=== PATIENT | male | born 1990 | race Caucasian/White ===

== ENCOUNTER 2019-02-09 16:17 | Emergency (ER) | payer MEDICARE, MEDICAID ==
[~2019-02-09] VITALS: Ht 188 cm; Wt 80.0 kg
[~2019-02-09 16:17] MED LIST: BENZ1TAB7 PO; BUSP30TA2 PO; ESCI10TA PO; LIT300C PO; RISP1TAB3 PO
[2019-02-09] MEDS ORDERED: TETanus/Pertussis (Acell)/Diphther VAC/PF (Tdap-Adult) 0.5ml syringe IM ONE (16:30)
[2019-02-09 16:36] VITALS: BP 125/73
[2019-02-09] MEDS ORDERED: IBUP-1985 PO (16:45)
[2019-02-09] MEDS ORDERED: AMOX-580 PO (16:45)
== END 2019-02-09 17:22 | disposition home or self-care (01) ==
LOC: ER 16:18
DX: S41.151A Open bite of right upper arm, initial encounter (principal); F31.9 Bipolar disorder, unspecified; F15.90 Other stimulant use, unspecified, uncomplicated; Z79.2 Long term (current) use of antibiotics; Z79.899 Other long term (current) drug therapy; W54.0XXA Bitten by dog, initial encounter; Y93.89 Activity, other specified; Y92.89 Other specified places as the place of occurrence of the external cause; Y99.8 Other external cause status
CPT/HCPCS: 90471; 99283

== ENCOUNTER 2020-01-18 22:27 | Inpatient (IN) | payer MEDICARE, MEDICAID ==
[~2020-01-18] VITALS: Ht 170.2 cm; Wt 76.7 kg
[~2020-01-18 22:27] MED LIST changes: +BUSP10TA10 PO; -BUSP30TA2 PO; +DIVA500T9 PO; -ESCI10TA PO; -LIT300C PO; +PALI234D IM; -RISP1TAB3 PO; +TRAZ-251 PO
[2020-01-19] MEDS ORDERED: acetaminophen 325mg tablet PO PRN (10:25)
[2020-01-19] MEDS ORDERED: loperamide 2mg capsule PO PRN (10:25)
[2020-01-19] MEDS ORDERED: magnesium hydroxide 30ml (MOM) UD suspension PO PRN (10:25)
[2020-01-19] MEDS ORDERED: mag hydrox/Alum hydrox/simeth 30ml oral suspension PO PRN (10:25)
[2020-01-19 10:27] VITALS: BP 134/76
[2020-01-19] MEDS ORDERED: OLAN5TAB3 PO (11:40)
[2020-01-19] MEDS ORDERED: OLAN10TA3 PO (11:40)
[2020-01-19] MEDS ORDERED: PROP10TA10 PO (11:40)
--- NOTE | 2020-01-19 14:18 | NUR ---
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 Patient was escorted by CAMILA Cherry and security. Patient is LPS conserved and was recently discharged to [facility] on 01/08/20. Patient AWOLD several times from this facility. Patient does not appear to be cognizant of the quarantine rules and insisted he comes back. Patient has been having behavioral issues, he was seen over the weekend destroying property while in the community and another incident pt. snuck out of his room and peers reported him drunk. While in ER pt. presented as disorganized, unable to form sentences, drooling and spitting on the floor. Patient appeared disheveled and in need of a shower. Patient showered and changed into green unit scrubs. Patient presents with a flat affect, guarded affect. Patient denies SI/HI/VH/AH, but then states regarding AH not right now. When asked why pt. is here he states I left, but I always go back. Patient kept asking Can I go back" meaning back to [facility]. Patient isolates to his room and naps in his bed. Patient was up for lunch. Patient denies any behavior issues while at [facility]. Addendum: 01/20/20 at 0859 by Moses Painting RN ADMISSION NOTE (not discharge note)
[2020-01-19 20:08] VITALS: BP 130/69
[2020-01-19] MEDS: benztropine 1mg tablet PO SCH (20:18)
[2020-01-19] MEDS: busPIRone 5mg tablet PO SCH (20:18)
[2020-01-19] MEDS: olanzapine 10mg tablet PO SCH (20:18)
[2020-01-19] MEDS: divalproex sod 250mg ER (24-hour) tablet PO SCH (20:18)
[2020-01-19] MEDS: propranolol 10mg tablet PO SCH (20:18)
--- NOTE | 2020-01-19 22:48 | NUR ---
Nursing Progress Note: Legal hold: LPS Client on involuntary status for GD Report received from Omar RN with use of SBAR. Why are they here: Patient is LPS conserved and was recently discharged to [facility] on 01/08/20. Patient AWOLD several times from this facility. Patient does not appear to be cognizant of the quarantine rules and insisted he comes back. Patient has been having behavioral issues, he was seen over the weekend destroying property while in the community and another incident pt. snuck out of his room and peers reported him drunk. While in ER pt. presented as disorganized, unable to form sentences, drooling and spitting on the floor. Assessment: What has happened this shift: Pt was lying in bed sleeping at shift change, but was easily to wake up for 1:1. Pt presented as tired, guarded and did not want to engage. Pt stated hes fine, just tired. Pt continued to isolate all evening and did not come out for snack. Pt accepted hs meds without issue. S/I, H/I: Denies. A/VH: Denies Sleep: Sleeping well, will tally in am. ADL's: independent, may require prompting. 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 Were med's taken: yes, without issue Any med S/E None. Mental Status Exam Appearance: lying in bed in scrubs Eye contact: fair Behavior: tired Speech: quiet, normal rate Mood: sleepy Affect: flat Thought process: unable to assess Thought Content: sleep Cognition: a/o x2 Insight: Poor. Judgment: poor Interventions PRN's used: None. Therapeutic interventions: 1:1 assessment, established rapport, active listening, reality orientation, boundary setting, medication administration/education and monitoring; Q15m safety checks. Restraints/seclusion/emergency medication: N/A Justification of Continued Inpatient Treatment: Requires interruption of current crisis, medication adjustments, and a safe and supportive environment to prevent readmission
[2020-01-20 07:13] LABS: HEMOGLOBIN A1C 5.3 % (4.5-6.2)
[2020-01-20 07:32] LABS: CHOL/HDL RATIO 2.9 (0.00-4.99); CHOLESTEROL 115 MG/DL (0-200); HDL CHOLESTEROL 39 MG/DL (35-60); LDL CHOLESTEROL 63 MG/DL (50-100); TRIGLYCERIDES 68 MG/DL (20-135)
[2020-01-20 07:42] VITALS: BP 117/72
[2020-01-20] MEDS: propranolol 10mg tablet PO SCH ×3 (08:26→20:06)
[2020-01-20] MEDS: busPIRone 5mg tablet PO SCH ×2 (08:26→20:05)
[2020-01-20] MEDS: benztropine 1mg tablet PO SCH ×2 (08:26→20:06)
[2020-01-20] MEDS: nicotine 21mg patch - 24 hr TD SCH (08:27)
--- NOTE | 2020-01-20 08:32 | NUR ---
PSYCHOSOCIAL ASSESSMENT Tony is a 29 y/o single male who is currently on LPS conservatorship by [facility]. His conservator is Shilpa Otero (ph# [phone]). He was recently discharged from [facility] on 01/08/20 after a 2 month admit while awaiting placement. He discharged to [facility]. He AWOL'd several times in the week that he was there and was climbing out his window to smoke. He was observed to be destroying property and walking in traffic while he AWOL'd. Tony was not following the Covid rules at the [facility] and stated, "there is no Covid-19". He reported he did not feel safe at [place]. His peers reported he had returned drunk after an AWOL. Tony has a long history of mental health treatment and was previously conserved. He has been working with the [facility] at [facility] since 2013. He likely will get placed in an IMD since he was unable to manage at the Board and Care level of care. TOBIN Bond Addendum: 01/20/20 at 0836 by Veronica PAGE Amended: Links added.
--- NOTE | 2020-01-20 16:07 | NUR ---
Nursing Progress Note: Legal hold: LPS Client on involuntary status for GD Report received from MARLO Serrano with use of SBAR. Why are they here: Patient is LPS conserved and was recently discharged to [facility] on 01/08/20. Patient AWOLD several times from this facility. Patient does not appear to be cognizant of the quarantine rules and insisted he comes back. Patient has been having behavioral issues, he was seen over the weekend destroying property while in the community and another incident pt. snuck out of his room and peers reported him drunk. While in ER pt. presented as disorganized, unable to form sentences, drooling and spitting on the floor. Assessment: What has happened this shift: Received pt sleeping in bed at shift change. Patient is tired and did not get up from breakfast. Patient awoke from snack and went back to bed. Patient awoke at lunch time and was wandering the halls. Patient reports that he does not have any psychotic symptoms. S/I, H/I: Denies. A/VH: Denies Sleep: 9 hours at NOC, slept during day. ADL's: independent, requires prompting. Group attendance: No Were med's taken: yes, without issue Any med S/E None. Mental Status Exam Appearance: Disheveled thin male lying in bed. Eye contact: fair Behavior: tired, sleeping. Speech: quiet, normal rate Mood: Im okay Affect: flat Thought process: unable to assess Thought Content: sleep Cognition: a/o x2 Insight: Poor. Judgment: poor Interventions PRN's used: None. Therapeutic interventions: 1:1 assessment, established rapport, active listening, reality orientation, boundary setting, medication administration/education and monitoring; Q15m safety checks. Restraints/seclusion/emergency medication: N/A Justification of Continued Inpatient Treatment: Requires interruption of current crisis, medication adjustments, and a safe and supportive environment to prevent readmission
[2020-01-20] MEDS: acetaminophen 325mg tablet PO PRN (17:47)
[2020-01-20] MEDS: olanzapine 10mg tablet PO SCH (20:06)
[2020-01-20] MEDS: traZODone 50mg tablet PO PRN (20:06)
[2020-01-20] MEDS: divalproex sod 250mg ER (24-hour) tablet PO SCH (20:06)
[2020-01-20 20:12] VITALS: BP 100/66
--- NOTE | 2020-01-20 22:42 | NUR ---
Nursing Progress Note:[] Legal hold:[] Client on voluntary/involuntary status for GD/DTS/DTO[]. Report received from nurse with use of SBAR[]. Why are they here:[]. Assessment What has happened this shift:[] S/I, H/I:[] A/VH: [] Sleep:[] ADL's:[] Group attendance:[] Were meds taken:[] Any med S/E[] Mental Status Exam Appearance:[] Eye contact:[] Behavior:[] Speech:[] Mood:[] Affect:[] Thought process:[] Thought Content:[] Cognition:[] Insight:[] Judgment:[] Interventions PRN's used:[] Therapeutic interventions:[] Restraints/seclusion/emergency medication:[] Justification of Continued Inpatient Treatment:[]
--- NOTE | 2020-01-20 22:42 | NUR ---
Nursing Progress Note: Legal hold: LPS conserved Report received from Omar SELLERS with use of SBAR Why are they here: Patient is LPS conserved and was recently discharged to [facility] on 01/08/20. Patient AWOLD several times from this facility. Patient does not appear to be cognizant of the quarantine rules and insisted he comes back. Patient has been having behavioral issues, he was seen over the weekend destroying property while in the community and another incident pt. snuck out of his room and peers reported him drunk. While in ER pt. presented as disorganized, unable to form sentences, drooling and spitting on the floor. Assessment What has happened this shift: The patient was observed walking in the hallway. He is not socializing with peers or staff. He was polite when approached for the evening assessment. He presented as guarded and gave minimal responses to questions being asked. Eye contact during the evening assessment was minimal. He appears very disheveled and in need of a shower and shampoo of his hair but he declined. He was offered a clean shirt by a staff member but he declined stated his shirt was just stained. His affect was flat and his speech was monotone but spontaneous. He denies thoughts of wanting to harm himself or others. He denies auditory or visual hallucinations or paranoia. When asked how his mood was he stated, "tired" He denied anxiety. When asked why he left his placement he stated that he did not feels safe there but did not elaborate. When asked if he felt safe here he only replied, "somewhat" He makes no attempt at personal hygiene or self care. He was asked what his understanding of his discharge plan was he stated, "I guess they will send me to [place]. He was compliant with his medications. He denied medication side effects. He is quiet and withdrawn. He will need prompting for ADLs. His insight and judgement are very poor. Justification of Continued Inpatient Treatment: The patient was readmitted to [facility] and is on a conservatorship hold. They are seeking placement for him at a higher level of care in the community. The client presents as significantly gravely disabled.
[2020-01-21] MEDS: acetaminophen 325mg tablet PO PRN (00:56)
[2020-01-21 08:00] VITALS: BP 110/63
[2020-01-21] MEDS: busPIRone 5mg tablet PO SCH ×2 (08:14→20:21)
[2020-01-21] MEDS: benztropine 1mg tablet PO SCH ×2 (08:14→20:21)
[2020-01-21] MEDS: propranolol 10mg tablet PO SCH ×3 (08:14→20:21)
[2020-01-21] MEDS: nicotine 21mg patch - 24 hr TD SCH (08:17)
[2020-01-21 12:31] VITALS: BP 107/61
--- NOTE | 2020-01-21 13:11 | NUR ---
Nursing Progress Note: Legal hold: LPS Client on involuntary status for GD Report received from MARLO Serrano with use of SBAR. Why are they here: Patient is LPS conserved and was recently discharged to [facility] on 01/08/20. Patient AWOLD several times from this facility. Patient does not appear to be cognizant of the quarantine rules and insisted he comes back. Patient has been having behavioral issues, he was seen over the weekend destroying property while in the community and another incident pt. snuck out of his room and peers reported him drunk. While in ER pt. presented as disorganized, unable to form sentences, drooling and spitting on the floor. Assessment: What has happened this shift: Pt got up for breakfast, was cooperative with meds and assessment then went promptly back to bed. Pt slept for most of the morning. Pt was isolative to self and avoidant this shift. Pt denied depression, anxiety, SI/HI/AH/VH. No unsafe behaviors noted. Did not observe pt responding to internal stimuli this shift. S/I, H/I: Pt denies. A/VH: Pt denies. Sleep: Pt slept 8 hours last night per noc shift report, napped for most of the day. ADL's: independent Group attendance: No Were med's taken: Yes Any med S/E: None noted or reported. Mental Status Exam Appearance: Disheveled, thin young male. Eye contact: Fair Behavior: Avoidant, isolative to self and room mostly sleeping. Speech: Minimal, mumbles at times. Mood: "okay" Affect: flat Thought process: Poverty of thought Thought Content: Seems focused on sleeping. Cognition: A/O X 3 Insight: Poor Judgment: Poor Interventions PRN's used: None. Therapeutic interventions: 1:1 assessment, encouraged pt to express his thoughts and feelings, medication administration/education/monitoring, encouragement to come to meals, encouragement to perform personal hygiene, encouragement to come to groups, Q15 minute safety checks. Restraints/seclusion/emergency medication: N/A Justification of Continued Inpatient Treatment: Pt failed his board and care placement, he is LPS conserved and will need medication administration in a safe and therapeutic environment until appropriate placement can be found. Addendum: 01/21/20 at 1439 by Emma Chan RN ([place]) Pt currently up pacing the hallway listening to radio headphones. Pt is wearing an extremely stained and stretched out/tattered white t-shirt. Looked in pt's locker, he has 2 packages of brand new underwear and 12 pairs of brand new socks but no shirt. Looked in clothing closet and found one shirt that may hopefully fit. Pt thanked this nurse and took the shirt to his room.
[2020-01-21 19:38] VITALS: BP 104/68
[2020-01-21] MEDS: olanzapine 10mg tablet PO SCH (20:21)
[2020-01-21] MEDS: divalproex sod 250mg ER (24-hour) tablet PO SCH (20:21)
--- NOTE | 2020-01-22 00:22 | NUR ---
Nursing Progress Note: Legal hold: LPS Client on involuntary status for GD Report received from MARLO Ventura with use of SBAR. Why are they here: Patient is LPS conserved and was recently discharged to [facility] on 01/08/20. Patient AWOLD several times from this facility. Patient does not appear to be cognizant of the quarantine rules and insisted he comes back. Patient has been having behavioral issues, he was seen over the weekend destroying property while in the community and another incident pt. snuck out of his room and peers reported him drunk. While in ER pt. presented as disorganized, unable to form sentences, drooling and spitting on the floor. Assessment: What has happened this shift: Pt was in his room sitting in his bed during shift change. Pt was cooperative during 1:1 physical assessment and took all his HS meds without any issues. Denies any A/VH and did not seem to be responding to internal stimuli. Also denies any anxiety. Was pretty isolative to his room and only came out for snack. Asked pt what had happened in the boarding care where he was staying but was not engaging in conversation. States that he wants to go back to the same boarding care from here if they let him. Nicotine patch was removed and pt appeared to be sleeping throughout the night. S/I, H/I: Denies. A/VH: Denies, does not appear to be responding to internal stimuli Sleep: Currently sleeping, see sleep assessment for total hours ADL's: independent, may require prompting. 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 Were med's taken: yes, without issue Any med S/E: None reported or observed Mental Status Exam Appearance: Appears disheveled, wearing dirty white t-shirt, unkempt hair Eye contact: Poor Behavior: Isolative, guarded, minimal engagement Speech: quiet, normal rate Mood: "Good" Affect: Blunted Thought process: Poverty of thought Thought Content: sleep, snack, wants to go back to boarding care Cognition: Alert and oriented x2 Insight: Poor. Judgment: poor Interventions PRN's used: None. Therapeutic interventions: 1:1 assessment, established rapport, active listening, reality orientation, boundary setting, medication administration/education and monitoring; Q15m safety checks. Restraints/seclusion/emergency medication: N/A Justification of Continued Inpatient Treatment: Requires interruption of current crisis, medication adjustments, and a safe and supportive environment to prevent readmission
[2020-01-22 07:21] VITALS: BP 116/74
[2020-01-22] MEDS: benztropine 1mg tablet PO SCH ×2 (08:22→20:03)
[2020-01-22] MEDS: propranolol 10mg tablet PO SCH ×3 (08:22→20:04)
[2020-01-22] MEDS: busPIRone 5mg tablet PO SCH ×2 (08:22→20:03)
[2020-01-22] MEDS: nicotine 21mg patch - 24 hr TD SCH (08:26)
[2020-01-22 13:07] VITALS: BP 109/61
--- NOTE | 2020-01-22 13:39 | NUR ---
Nursing Progress Note: Legal hold: LPS Client on involuntary status for GD Report received from Jenifer Mccauley RN with use of SBAR. Why are they here: Patient is LPS conserved and was recently discharged to [facility] on 01/08/20. Patient AWOLD several times from this facility. Patient does not appear to be cognizant of the quarantine rules and insisted he comes back. Patient has been having behavioral issues, he was seen over the weekend destroying property while in the community and another incident pt. snuck out of his room and peers reported him drunk. While in ER pt. presented as disorganized, unable to form sentences, drooling and spitting on the floor. Assessment: What has happened this shift: Pt refused to get up and eat breakfast today. He did get up for morning snack and for lunch. Pt continues to deny symptoms, he did not appear to be responding to internal stimuli. Pt continues to wear his tattered and stained, stretched out white t-shirt with what appears to be oil or grease stains. Pt is mostly isolative to self but will interact with staff mostly to request snacks, he occasionally interacts with peers. No unsafe behaviors noted. S/I, H/I: Pt denies. A/VH: Pt denies. Sleep: Pt slept 9.5 hours last night per noc shift report, napped for most of the morning. ADL's: independent Group attendance: No Were med's taken: Yes Any med S/E: None noted or reported. Mental Status Exam Appearance: Disheveled, thin young male with messy hair and sparse facial hair wearing shorts and a ratty old white t-shirt with multiple greyish-black stains despite being encouraged to change. Eye contact: Fair Behavior: Likes to sleep in, mostly isolative to self, out of room for snacks and lunch, paces at times in the [place], listens to radio headphones, snack-seeking. Speech: Minimal, mumbles at times. Mood: "okay" Affect: flat Thought process: Poverty of thought Thought Content: Focuses on snacks and sleep. Cognition: A/O X 3 Insight: Poor Judgment: Poor Interventions PRN's used: None. Therapeutic interventions: 1:1 assessment, encouraged pt to express his thoughts and feelings, medication administration/education/monitoring, encouragement to come to meals, encouragement to perform personal hygiene, encouragement to change his shirt, encouragement to come to groups, Q15 minute safety checks. Restraints/seclusion/emergency medication: N/A Justification of Continued Inpatient Treatment: Pt failed his board and care placement, he is LPS conserved and will need medication administration in a safe and therapeutic environment until appropriate placement can be found. Addendum: 01/22/20 at 1629 by Emma Chan RN (Lee) Pt approached this RN to ask if he had any PRNs. Asked him if he needed a PRN, pt replied that he just wanted to know what he had. Pt was wearing a nice black t-shirt that PCT found for him in the clothing closet. Notified pt that he had PRN Ativan available, asked him if he wanted to take one. Pt appeared fidgety and anxious. Pt answered, "yeah." Asked pt if he had any water he said no but he needed some. Refilled pt's water pitcher and administered Ativan 1 mg at 1622. Asked pt if he was hearing any voices, pt looked down and shook his head stating, "no just anxious." He then looked up and rapidly mumbled "they don't tell me anything bad, I get along with them." Clarified that the voices don't tell him to do anything bad, pt answered no. He then quickly walked off.
[2020-01-22] MEDS: LORazepam 1 MG tablet PO PRN (16:22)
[2020-01-22 19:24] VITALS: BP 125/65
[2020-01-22] MEDS: divalproex sod 250mg ER (24-hour) tablet PO SCH (20:03)
[2020-01-22] MEDS: olanzapine 10mg tablet PO SCH (20:03)
--- NOTE | 2020-01-22 22:30 | NUR ---
Nursing Progress Note: Legal hold: LPS Client on involuntary status for GD Report received from MARLO Ventura with use of SBAR. Why are they here: Patient is LPS conserved and was recently discharged to [facility] on 01/08/20. Patient AWOLD several times from this facility. Patient does not appear to be cognizant of the quarantine rules and insisted he comes back. Patient has been having behavioral issues, he was seen over the weekend destroying property while in the community and another incident pt. snuck out of his room and peers reported him drunk. While in ER pt. presented as disorganized, unable to form sentences, drooling and spitting on the floor. Assessment: What has happened this shift: Pt was visible in the unit during shift change. Requested to take a shower. He also asked to have his sheets changed and his laundry to be done. Pt continues to isolate but remains calm and cooperative. He denies any A/VH, anxiety or depression. Talked about his time in the boarding care where he was at and thinks that he will be going back there. He admits to having eloped from there a couple times but even then he states that they will let him come back there. He retired to bed shortly after and there were no behavioral issues reported or observed. Nicotine patch was removed by pt. S/I, H/I: Denies. A/VH: Denies Sleep: Currently sleeping, see sleep assessment for total hours ADL's: independent, may require prompting. 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 Were med's taken: yes, without issue Any med S/E: None reported or observed Mental Status Exam Appearance: Clean, appropriate, took a shower Eye contact: Good Behavior: Isolative, guarded, cooperative, calm Speech: Pressured, mumbles at times Mood: "bored" Affect: Blunted Thought process: Poverty of thought Thought Content: Discharge, snacks, wants to go to sleep early Cognition: Alert and oriented x2 Insight: Poor. Judgment: poor Interventions PRN's used: None. Therapeutic interventions: 1:1 assessment, established rapport, active listening, reality orientation, boundary setting, medication administration/education and monitoring; Q15m safety checks. Restraints/seclusion/emergency medication: N/A Justification of Continued Inpatient Treatment: Requires interruption of current crisis, medication adjustments, and a safe and supportive environment to prevent readmission
[2020-01-23 07:00] VITALS: BP 89/47
[2020-01-23] MEDS: propranolol 10mg tablet PO SCH ×3 (08:23→21:27)
[2020-01-23] MEDS: busPIRone 5mg tablet PO SCH ×2 (08:23→20:09)
[2020-01-23] MEDS: benztropine 1mg tablet PO SCH ×2 (08:23→20:09)
[2020-01-23] MEDS: nicotine 14mg patch - 24hr TD SCH (08:24)
[2020-01-23] MEDS ORDERED: paliperidone palmitate inj 234 MG/1.5 ML SYRINGE IM ONE (09:30)
--- NOTE | 2020-01-23 15:47 | NUR ---
Nursing Progress Note: Legal hold: LPS Client on involuntary status for GD Report received from Jenifer Mccauley RN with use of SBAR. Why are they here: Patient is LPS conserved and was recently discharged to [facility] on 01/08/20. Patient AWOLD several times from this facility. Patient does not appear to be cognizant of the quarantine rules and insisted he comes back. Patient has been having behavioral issues, he was seen over the weekend destroying property while in the community and another incident pt. snuck out of his room and peers reported him drunk. While in ER pt. presented as disorganized, unable to form sentences, drooling and spitting on the floor. Assessment: What has happened this shift: Patient sleeping in bed at shift change. Pt. Refused to get up for breakfast and stayed in bed and slept until snack time. Patient up and walking hallways in afternoon. Pt initially denies A/H, but later in conversation admitted that he does admit to A/H, but does not know what they are saying. S/I, H/I: Pt denies. A/VH: Pt denies. Sleep: 8.5 hours at night, napped most of the morning. ADL's: independent Group attendance: No Were med's taken: Yes Any med S/E: None noted or reported. Mental Status Exam Appearance: Clean and neat in unit attire. Eye contact: Fair Behavior: Sleeping all morning. Pacing hallways in afternoon. Calm and cooperative. Speech: Minimal, mumbles at times. Mood: "Im okay" Affect: flat Thought process: Poverty of thought Thought Content: Focuses on snacks and sleep. Cognition: A/O X 3 Insight: Poor Judgment: Poor Interventions PRN's used: None. Therapeutic interventions: 1:1 assessment, encouraged pt to express his thoughts and feelings, medication administration/education/monitoring, encouragement to come to meals, encouragement to perform personal hygiene, encouragement to come to groups, Q15 minute safety checks. Restraints/seclusion/emergency medication: N/A Justification of Continued Inpatient Treatment: Pt failed his board and care placement, he is LPS conserved and will need medication administration in a safe and therapeutic environment until appropriate placement can be found.
[2020-01-23] MEDS: acetaminophen 325mg tablet PO PRN (16:56)
[2020-01-23 19:30] VITALS: BP 114/61
[2020-01-23] MEDS: divalproex sod 250mg ER (24-hour) tablet PO SCH (20:09)
[2020-01-23] MEDS: olanzapine 10mg tablet PO SCH (20:09)
--- NOTE | 2020-01-24 00:47 | NUR ---
Nursing Progress Note: Legal hold: LPS Client on involuntary status for GD Report received from MARLO Ventura with use of SBAR. Why are they here: Patient is LPS conserved and was recently discharged to [facility] on 01/08/20. Patient AWOLD several times from this facility. Patient does not appear to be cognizant of the quarantine rules and insisted he comes back. Patient has been having behavioral issues, he was seen over the weekend destroying property while in the community and another incident pt. snuck out of his room and peers reported him drunk. While in ER pt. presented as disorganized, unable to form sentences, drooling and spitting on the floor. Assessment: What has happened this shift: Pt was sleeping during shift change. Pt remained mainly isolative but did come out for snack. He was not observed socializing with other patients or staff. Conversation with this RN is also minimal as he only answers questions with a yes or no. He was cooperative during 1:1 physical assessment and took all his HS meds. Denies any A/VH and did not appear to be responding to internal stimuli. He states that he feels bored and tired and just wants to go back to sleep. He retired to bed after he ate a snack and received his medications. No behavioral issues were reported or observed. S/I, H/I: Denies. A/VH: Denies Sleep: Currently sleeping, see sleep assessment for total hours ADL's: independent, may require prompting. 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 Were med's taken: yes, without issue Any med S/E: None reported or observed Mental Status Exam Appearance: Clean, appropriate, walks around the unit without any socks or shoes. Eye contact: Good, minimal Behavior: Withdrawn, guarded, isolative Speech: Pressured, mumbles at times Mood: Tired, Pt appears depressed aeb flat affect Affect: Flat Thought process: Poverty of thought Thought Content: Meds, discharge, bored Cognition: Alert and oriented x2 Insight: Poor. Judgment: poor Interventions PRN's used: None. Therapeutic interventions: 1:1 assessment, established rapport, active listening, reality orientation, boundary setting, medication administration/education and monitoring; Q15m safety checks. Restraints/seclusion/emergency medication: N/A Justification of Continued Inpatient Treatment: Requires interruption of current crisis, medication adjustments, and a safe and supportive environment to prevent readmission
[2020-01-24 07:00] VITALS: BP 109/51
[2020-01-24] MEDS: benztropine 1mg tablet PO SCH ×2 (08:40→20:05)
[2020-01-24] MEDS: propranolol 10mg tablet PO SCH ×3 (08:40→20:05)
[2020-01-24] MEDS: busPIRone 5mg tablet PO SCH ×2 (08:40→20:05)
[2020-01-24] MEDS: nicotine 14mg patch - 24hr TD SCH (08:41)
--- NOTE | 2020-01-24 10:25 | NUR ---
Initial: Pt admit w/ schizoaffective disorder hx meth abuse. PO 75-100% meals refusing all breakfasts. LBM 01/22. No nutrition concerns at this time. Will continue to monitor. Rec: 1. continue regular diet 2. monitor for ONS needs if PO declines 3. bowel care per rx 4. wt per rx Addendum: 01/24/20 at [address] Amended: Links added.
--- NOTE | 2020-01-24 16:44 | NUR ---
Nursing Progress Note: Legal hold: LPS Client on involuntary status for GD Report received from Jenifer Mccauley RN with use of SBAR. Why are they here: Patient is LPS conserved and was recently discharged to [facility] on 01/08/20. Patient AWOLD several times from this facility. Patient does not appear to be cognizant of the quarantine rules and insisted he comes back. Patient has been having behavioral issues, he was seen over the weekend destroying property while in the community and another incident pt. snuck out of his room and peers reported him drunk. While in ER pt. presented as disorganized, unable to form sentences, drooling and spitting on the floor. Assessment: What has happened this shift: Patient sleeping in bed at shift change. Patient awakens late for breakfast. Awakens late for snack. After lunch is back in bed. States he is just wanting to sleep. Patient takes medications without incident. Pt. States he has no concerns at this time. He was walking hallways earlier, but mostly has slept, and is unwilling to elaborate any further. S/I, H/I: Pt denies. A/VH: Pt denies. Sleep: Slept much of shift. ADL's: independent Group attendance: No Were med's taken: Yes Any med S/E: None noted or reported. Mental Status Exam Appearance: Clean, disheveled in unit attire. Eye contact: Fair Behavior: Withdrawn and isolative, sleeping. Speech: Minimal, mumbles at times. Mood: Depressed. Affect: flat Thought process: Poverty of thought Thought Content: Focuses on snacks and sleep. Cognition: A/O X 3 Insight: Poor Judgment: Poor Interventions PRN's used: None. Therapeutic interventions: 1:1 assessment, encouraged pt to express his thoughts and feelings, medication administration/education/monitoring, encouragement to come to meals, encouragement to perform personal hygiene, encouragement to come to groups, Q15 minute safety checks. Restraints/seclusion/emergency medication: N/A Justification of Continued Inpatient Treatment: Pt failed his board and care placement, he is LPS conserved and will need medication administration in a safe and therapeutic environment until appropriate placement can be found.
[2020-01-24] MEDS: acetaminophen 325mg tablet PO PRN (17:53)
[2020-01-24] MEDS: lactose-reduced food (Ensure Enlive) - 237ml bottle PO SCH (17:56)
[2020-01-24 20:00] VITALS: BP 116/68
[2020-01-24] MEDS: divalproex sod 250mg ER (24-hour) tablet PO SCH (20:05)
[2020-01-24] MEDS: olanzapine 10mg tablet PO SCH (20:05)
--- NOTE | 2020-01-25 01:19 | NUR ---
Nursing Progress Note: Legal hold: LPS Client on involuntary status for GD Report received from MARLO Lake with use of SBAR. Why are they here: Patient is LPS conserved and was recently discharged to [facility] on 01/08/20. Patient AWOLD several times from this facility. Patient does not appear to be cognizant of the quarantine rules and insisted he comes back. Patient has been having behavioral issues, he was seen over the weekend destroying property while in the community and another incident pt. snuck out of his room and peers reported him drunk. While in ER pt. presented as disorganized, unable to form sentences, drooling and spitting on the floor. Assessment: What has happened this shift: The patient was isolating to his room, and agreed to 1:1. He's unwilling to talk about anything personal. The most words he uses will be, "I just want to sleep" otherwise yes or no. The patient either isolates to his room, or, when he does come out, he doesn't talk to anybody. Asked him if he's having AV/H, he says "no." He can be seen responding to IS, even though he denies it. He also denies feeling suicidal. The patient did come out for snack time, spoke to nobody, then went back to his room. He was compliant with HS med pass and went to sleep. S/I, H/I: Denies. A/VH: Denies Sleep: See sleep assessment. ADL's: independent. 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 Were med's taken: Yes. Any med S/E: None reported or observed Mental Status Exam Appearance: Disheveled, appropriate, walks around the unit without any socks or shoes. Eye contact: Good. Behavior: Withdrawn, guarded, isolative, quiet Speech: Pressured. Mood: Depressed Affect: Flat Thought process: Poverty of thought Thought Content: Meds, discharge, bored Cognition: Alert and oriented x2 Insight: Poor. Judgment: poor Interventions PRN's used: None. Therapeutic interventions: 1:1 assessment, established rapport, active listening, reality orientation, boundary setting, medication administration/education and monitoring; Q15m safety checks. Restraints/seclusion/emergency medication: N/A Justification of Continued Inpatient Treatment: Requires interruption of current crisis, medication adjustments, and a safe and supportive environment to prevent readmission
[2020-01-25 07:30] VITALS: BP 105/60
[2020-01-25] MEDS: benztropine 1mg tablet PO SCH ×2 (08:04→20:05)
[2020-01-25] MEDS: propranolol 10mg tablet PO SCH ×3 (08:04→20:06)
[2020-01-25] MEDS: busPIRone 5mg tablet PO SCH ×2 (08:04→20:05)
[2020-01-25] MEDS: nicotine 14mg patch - 24hr TD SCH (08:05)
[2020-01-25] MEDS: lactose-reduced food (Ensure Enlive) - 237ml bottle PO SCH ×3 (08:05→18:00)
--- NOTE | 2020-01-25 12:28 | NUR ---
NURSING PROGRESS NOTE Legal hold: LPS Client on involuntary status for GD Report received from Jenifer Mccauley RN with use of SBAR. Why are they here: Patient is LPS conserved and was recently discharged to [facility] on 01/08/20. Patient AWOLD several times from this facility. Patient does not appear to be cognizant of the quarantine rules and insisted he comes back. Patient has been having behavioral issues, he was seen over the weekend destroying property while in the community and another incident pt. snuck out of his room and peers reported him drunk. While in ER pt. presented as disorganized, unable to form sentences, drooling and spitting on the floor. Assessment: What has happened this shift: The patient did not want to get up but did take his medications. will not really engage with nurse or others, just "wants to sleep." Denies SI and all hallucinations but does appear to be RIS at times. Isolates to room. S/I, H/I: Pt denies. A/VH: Pt denies. Sleep: Slept much of shift. ADL's: independent Group attendance: No Were med's taken: Yes Any med S/E: None noted or reported. Mental Status Exam Appearance: disheveled Eye contact: poor Behavior: Quiet, isolative Speech: Minimal, mumbles at times. Mood: Depressed. Affect: flat Thought process: Poverty of thought Thought Content: sleeping Cognition: Alert Insight: Poor Judgment: Poor Interventions PRN's used: None. Therapeutic interventions: 1:1 assessment, encouraged pt to express his thoughts and feelings, medication administration/education/monitoring, encouragement to come to meals, encouragement to perform personal hygiene, encouragement to come to groups, Q15 minute safety checks. Restraints/seclusion/emergency medication: N/A Justification of Continued Inpatient Treatment: Pt failed his board and care placement, he is LPS conserved and will need medication administration in a safe and therapeutic environment until appropriate placement can be found.
[2020-01-25] MEDS: acetaminophen 325mg tablet PO PRN (18:56)
[2020-01-25] MEDS: olanzapine 10mg tablet PO SCH (20:06)
[2020-01-25] MEDS: divalproex sod 250mg ER (24-hour) tablet PO SCH (20:06)
[2020-01-25 20:19] VITALS: BP 117/54
--- NOTE | 2020-01-25 23:12 | NUR ---
Nursing Progress Note: Legal hold: LPS Client on involuntary status for GD Report received from Omar RN with use of SBAR. Why are they here: Patient is LPS conserved and was recently discharged to [facility] on 01/08/20. Patient AWOLD several times from this facility. Patient does not appear to be cognizant of the quarantine rules and insisted he comes back. Patient has been having behavioral issues, he was seen over the weekend destroying property while in the community and another incident pt. snuck out of his room and peers reported him drunk. While in ER pt. presented as disorganized, unable to form sentences, drooling and spitting on the floor. Assessment: What has happened this shift: The patient was out of his room at shift change. He c/o toothache that was relieved with Tylenol 650mg. he states that other than toothache, he is doing fine. When asked if his Doctor was aware, he responded, "I'll be leaving here soon...I'll let them know at my new place. If I said anything now, it would take a long time anyway. Probably after I leave." He then went back to his room. He came out at snack time and HS med pass, then went back to his room. S/I, H/I: Denies. A/VH: Denies Sleep: See sleep assessment. ADL's: independent. Group attendance: No group on night nurse. Were med's taken: Yes. Any med S/E: None reported or observed Mental Status Exam Appearance: Disheveled, messy hair, walks around the unit without any socks or shoes. Eye contact: Good. Behavior: Withdrawn, guarded, isolative, quiet Speech: Pressured. Mood: Depressed Affect: Flat Thought process: Poverty of thought Thought Content: Meds, discharge, bored Cognition: Alert and oriented x2 Insight: Poor. Judgment: poor Interventions PRN's used: Tylenol 650mg. Therapeutic interventions: 1:1 assessment, established rapport, active listening, reality orientation, boundary setting, medication administration/education and monitoring; Q15m safety checks. Restraints/seclusion/emergency medication: N/A Justification of Continued Inpatient Treatment: Requires interruption of current crisis, medication adjustments, and a safe and supportive environment to prevent readmission
[2020-01-26 08:00] VITALS: BP 100/54
[2020-01-26] MEDS: benztropine 1mg tablet PO SCH ×2 (08:12→20:39)
[2020-01-26] MEDS: busPIRone 5mg tablet PO SCH ×2 (08:12→20:39)
[2020-01-26] MEDS: propranolol 10mg tablet PO SCH ×3 (08:12→20:38)
[2020-01-26] MEDS: lactose-reduced food (Ensure Enlive) - 237ml bottle PO SCH ×3 (08:13→18:00)
[2020-01-26] MEDS: nicotine 14mg patch - 24hr TD SCH (08:13)
--- NOTE | 2020-01-26 12:08 | NUR ---
NURSING PROGRESS NOTE Legal hold: LPS Client on involuntary status for GD Report received from MARLO Serrano with use of SBAR. Why are they here: Patient is LPS conserved and was recently discharged to [facility] on 01/08/20. Patient AWOLD several times from this facility. Patient does not appear to be cognizant of the quarantine rules and insisted he comes back. Patient has been having behavioral issues, he was seen over the weekend destroying property while in the community and another incident pt. snuck out of his room and peers reported him drunk. While in ER pt. presented as disorganized, unable to form sentences, drooling and spitting on the floor. Assessment: What has happened this shift: Very sleepy in morning but did get up to breakfast with encouragement. Took all medications. States, "I just want to sleep, it doesn't matter because I will be leaving here soon." Denies hallucinations or suicidal thoughts. Returns to bed and isolates there sleeping. Gets up at times. Eating well and taking fluids. Does not c/o toothache during morning. S/I, H/I: Pt denies. A/VH: Pt denies. Sleep: Slept much of shift. ADL's: independent Group attendance: No Were med's taken: Yes Any med S/E: None noted or reported. Mental Status Exam Appearance: disheveled Eye contact: poor Behavior: Quiet, isolative Speech: Minimal, mumbles at times. Mood: Depressed. Affect: flat Thought process: Poverty of thought Thought Content: leaving soon Cognition: Alert Insight: Poor Judgment: Poor Interventions PRN's used: None. Therapeutic interventions: 1:1 assessment, encouraged pt to express his thoughts and feelings, medication administration/education/monitoring, encouragement to come to meals, encouragement to perform personal hygiene, encouragement to come to groups, Q15 minute safety checks. Restraints/seclusion/emergency medication: N/A Justification of Continued Inpatient Treatment: Pt failed his board and care placement, he is LPS conserved and will need medication administration in a safe and therapeutic environment until appropriate placement can be found.
[2020-01-26 20:09] VITALS: BP 120/51
[2020-01-26] MEDS: olanzapine 10mg tablet PO SCH (20:38)
[2020-01-26] MEDS: traZODone 50mg tablet PO PRN (20:38)
[2020-01-26] MEDS: divalproex sod 250mg ER (24-hour) tablet PO SCH (20:38)
--- NOTE | 2020-01-27 06:06 | NUR ---
Nursing Progress Note: Legal hold: LPS Client on involuntary status for GD Report received from Omar RN with use of SBAR. Why are they here: Patient is LPS conserved and was recently discharged to [facility] on 01/08/20. Patient AWOLD several times from this facility. Patient does not appear to be cognizant of the quarantine rules and insisted he comes back. Patient has been having behavioral issues, he was seen over the weekend destroying property while in the community and another incident pt. snuck out of his room and peers reported him drunk. While in ER pt. presented as disorganized, unable to form sentences, drooling and spitting on the floor. Assessment: What has happened this shift: Patient in his room awake at the beginning of shift. Pleasant and cooperative with all care; compliant with medication. PRN Trazodone provided with positive effect. Patient denies all MH symptoms and does not appear to be responding to internal stimuli this shift. Patient participated in HS snack and promptly returned to bed. Patient observed sleeping and does not appear to be having difficulty. S/I, H/I: Denies. A/VH: Denies Sleep: Refer to sleep assessment. ADL's: independent. Group attendance: No groups this shift. Were med's taken: Yes. Any med S/E: None reported or observed Mental Status Exam Appearance: Disheveled, wearing green unit attire. Eye contact: Good. Behavior: Withdrawn, guarded, isolative, quiet Speech: Pressured. Mood: Depressed Affect: Flat Thought process: Poverty of thought Thought Content: Bored Cognition: Alert and oriented x2 Insight: Poor. Judgment: poor Interventions PRN's used: Trazodone Therapeutic interventions: 1:1 assessment, established rapport, active listening, reality orientation, boundary setting, medication administration/education and monitoring; Q15m safety checks. Restraints/seclusion/emergency medication: N/A Justification of Continued Inpatient Treatment: Requires interruption of current crisis, medication adjustments, and a safe and supportive environment to prevent readmission
[2020-01-27] MEDS: propranolol 10mg tablet PO SCH ×3 (07:17→20:19)
[2020-01-27] MEDS: benztropine 1mg tablet PO SCH ×2 (07:18→20:19)
[2020-01-27] MEDS: busPIRone 5mg tablet PO SCH ×2 (07:18→20:19)
[2020-01-27] MEDS: nicotine 14mg patch - 24hr TD SCH (07:26)
[2020-01-27] MEDS: lactose-reduced food (Ensure Enlive) - 237ml bottle PO SCH ×3 (08:00→18:25)
[2020-01-27 08:04] VITALS: BP 110/63
[2020-01-27 12:11] VITALS: BP 96/53
--- NOTE | 2020-01-27 14:15 | NUR ---
Nursing Progress Note: Legal hold: LPS Client on involuntary status for GD Report received from MARLO Serrano with use of SBAR. Why are they here: Patient is LPS conserved and was recently discharged to [facility] on 01/08/20. Patient AWOLD several times from this facility. Patient does not appear to be cognizant of the quarantine rules and insisted he comes back. Patient has been having behavioral issues, he was seen over the weekend destroying property while in the community and another incident pt. snuck out of his room and peers reported him drunk. While in ER pt. presented as disorganized, unable to form sentences, drooling and spitting on the floor. Assessment: What has happened this shift: Patient sleeping at the beginning of shift. Patient woke for breakfast and quickly returned to bed. Patient remains isolative the majority of shift. He participated in second art therapy and agreeable to shower after group is finished. He is pleasant and cooperative; compliant with medication. Automatic Profile Shaper Operator held 1300 Propranolol per parameters; BP 96/53. Patient denies SI, HI, A/VH and does not appear to be responding to internal stimuli. S/I, H/I: Denies A/VH: Denies Sleep: Napping throughout the shift ADL's: Independent, requires some prompting Group attendance: No groups this shift Were med's taken: Yes Any med S/E: None reported or observed Mental Status Exam Appearance: Disheveled, wearing green unit attire. Eye contact: Good Behavior: Withdrawn, guarded, isolative, quiet Speech: Pressured Mood: Depressed Affect: Flat Thought process: Poverty of thought Thought Content: Bored Cognition: Alert and oriented x2 Insight: Poor. Judgment: poor Interventions PRN's used: None Therapeutic interventions: 1:1 assessment, established rapport, active listening, reality orientation, boundary setting, medication administration/education and monitoring; Q15m safety checks. Restraints/seclusion/emergency medication: N/A Justification of Continued Inpatient Treatment: Requires interruption of current crisis, medication adjustments, and a safe and supportive environment to prevent readmission
[2020-01-27] MEDS: LORazepam 1 MG tablet PO PRN (18:38)
[2020-01-27 19:46] VITALS: BP 131/65
[2020-01-27] MEDS: olanzapine 10mg tablet PO SCH (20:19)
[2020-01-27] MEDS: divalproex sod 250mg ER (24-hour) tablet PO SCH (20:19)
[2020-01-27] MEDS: traZODone 50mg tablet PO PRN (20:20)
--- NOTE | 2020-01-27 21:12 | NUR ---
Nursing Progress Note: Legal hold: LPS Client on involuntary status for GD Report received from Omar RN with use of SBAR. Why are they here: Patient is LPS conserved and was recently discharged to [facility] on 01/08/20. Patient AWOLD several times from this facility. Patient does not appear to be cognizant of the quarantine rules and insisted he comes back. Patient has been having behavioral issues, he was seen over the weekend destroying property while in the community and another incident pt. snuck out of his room and peers reported him drunk. While in ER pt. presented as disorganized, unable to form sentences, drooling and spitting on the floor. Assessment: What has happened this shift: pt was sleeping at change of shift, he got up for snack and asked for meds and returned to his room. Pt denies s/i, denies a/vh although appears to be internally preoccupied. pt isolates to himself. Pt states his mood is "fine." Pt gives minimal answers to questions. S/I, H/I: Denies A/VH: Denies Sleep: see sleep hours ADL's: Independent, requires some prompting Group attendance: No groups this shift Were med's taken: Yes Any med S/E: None reported or observed Mental Status Exam Appearance: Disheveled, wearing green unit attire. Eye contact: Good Behavior: Withdrawn, guarded, isolative, quiet Speech: Pressured Mood: Depressed Affect: Flat Thought process: Poverty of thought Thought Content: unable to assess, pt gives minimal answers Cognition: Alert and oriented x2 Insight: Poor. Judgment: poor Interventions PRN's used: None Therapeutic interventions: 1:1 assessment, established rapport, active listening, reality orientation, boundary setting, medication administration/education and monitoring; Q15m safety checks. Restraints/seclusion/emergency medication: N/A Justification of Continued Inpatient Treatment: Requires interruption of current crisis, medication adjustments, and a safe and supportive environment to prevent readmission
[2020-01-28 07:32] VITALS: BP 99/57
[2020-01-28] MEDS: nicotine 14mg patch - 24hr TD SCH (08:00)
[2020-01-28] MEDS: lactose-reduced food (Ensure Enlive) - 237ml bottle PO SCH ×3 (08:00→18:21)
[2020-01-28] MEDS: benztropine 1mg tablet PO SCH ×2 (08:37→20:03)
[2020-01-28] MEDS: propranolol 10mg tablet PO SCH ×3 (08:37→20:03)
[2020-01-28] MEDS: busPIRone 5mg tablet PO SCH ×2 (08:37→20:03)
--- NOTE | 2020-01-28 17:16 | NUR ---
Nursing Progress Note: Legal hold: LPS Client on involuntary status for GD Report received from MARLO Serrano with use of SBAR. Why are they here: Patient is LPS conserved and was recently discharged to [facility] on 01/08/20. Patient AWOLD several times from this facility. Patient does not appear to be cognizant of the quarantine rules and insisted he comes back. Patient has been having behavioral issues, he was seen over the weekend destroying property while in the community and another incident pt. snuck out of his room and peers reported him drunk. While in ER pt. presented as disorganized, unable to form sentences, drooling and spitting on the floor. Assessment: What has happened this shift: Patient sleeping at the beginning of shift. Patient woke for breakfast and quickly returned to bed. Patient remains isolative the majority of shift. Pt did not attend either of the groups today. He is pleasant and cooperative; compliant with medication. Pt did pace the halls a little after lunch, but did not initiate interaction with others except to request coffee. Patient denies SI, HI, A/VH and does not appear to be responding to internal stimuli. S/I, H/I: Denies A/VH: Denies Sleep: Napping throughout the shift ADL's: Independent, requires some prompting Group attendance: No groups this shift Were med's taken: Yes Any med S/E: None reported or observed Mental Status Exam Appearance: Disheveled, wearing green unit attire. Eye contact: Good Behavior: Withdrawn, guarded, isolative, quiet Speech: Pressured Mood: Depressed Affect: Flat Thought process: Poverty of thought Thought Content: Bored Cognition: Alert and oriented x2 Insight: Poor. Judgment: poor Interventions PRN's used: None Therapeutic interventions: 1:1 assessment, established rapport, active listening, reality orientation, boundary setting, medication administration/education and monitoring; Q15m safety checks. Restraints/seclusion/emergency medication: N/A Justification of Continued Inpatient Treatment: Requires interruption of current crisis, medication adjustments, and a safe and supportive environment to prevent readmission
[2020-01-28 19:47] VITALS: BP_SYST 108; BP_DIAS 58; BP_DIAS 78
[2020-01-28] MEDS: divalproex sod 250mg ER (24-hour) tablet PO SCH (20:03)
[2020-01-28] MEDS: traZODone 50mg tablet PO PRN (20:03)
[2020-01-28] MEDS: olanzapine 10mg tablet PO SCH (20:03)
--- NOTE | 2020-01-28 21:37 | NUR ---
Nursing Progress Note: Legal hold: LPS Client on involuntary status for GD Report received from MARLO Ventura with use of SBAR. Why are they here: Patient is LPS conserved and was recently discharged to [facility] on 01/08/20. Patient AWOLD several times from this facility. Patient does not appear to be cognizant of the quarantine rules and insisted he comes back. Patient has been having behavioral issues, he was seen over the weekend destroying property while in the community and another incident pt. snuck out of his room and peers reported him drunk. While in ER pt. presented as disorganized, unable to form sentences, drooling and spitting on the floor. Assessment: What has happened this shift: Pt in bed at change of shift napping. Pt states that he is feeling "fine", denies s/i, denies a/vh. Pt came out of his room for a snack but then quickly returned to his room. pt reports he removed his nicotine patch earlier. pt gives minimal answers to questions. S/I, H/I: Denies A/VH: Denies Sleep: Napping throughout the shift ADL's: Independent, requires some prompting Group attendance: No groups this shift Were med's taken: Yes Any med S/E: None reported or observed Mental Status Exam Appearance: Disheveled, wearing green unit attire, declined a shower. Eye contact: Good Behavior: Withdrawn, guarded, isolative, quiet Speech: Pressured Mood: Depressed Affect: Flat Thought process: Poverty of thought Thought Content: "Im fine." Cognition: Alert and oriented x2 Insight: Poor. Judgment: poor Interventions PRN's used: None Therapeutic interventions: 1:1 assessment, established rapport, active listening, reality orientation, boundary setting, medication administration/education and monitoring; Q15m safety checks. Restraints/seclusion/emergency medication: N/A Justification of Continued Inpatient Treatment: Requires interruption of current crisis, medication adjustments, and a safe and supportive environment to prevent readmission
[2020-01-29 07:18] VITALS: BP 122/64
[2020-01-29] MEDS: lactose-reduced food (Ensure Enlive) - 237ml bottle PO SCH ×3 (08:00→18:02)
[2020-01-29] MEDS: benztropine 1mg tablet PO SCH ×2 (08:30→20:03)
[2020-01-29] MEDS: propranolol 10mg tablet PO SCH ×3 (08:30→20:03)
[2020-01-29] MEDS: busPIRone 5mg tablet PO SCH ×2 (08:30→20:03)
[2020-01-29] MEDS: nicotine 14mg patch - 24hr TD SCH (08:31)
--- NOTE | 2020-01-29 13:47 | NUR ---
Nursing Progress Note: Legal hold: LPS Client on involuntary status for GD Report received from Jenifer Obrien RN with use of SBAR. Why are they here: Patient is LPS conserved and was recently discharged to [facility] on 01/08/20. Patient AWOLD several times from this facility. Patient does not appear to be cognizant of the quarantine rules and insisted he comes back. Patient has been having behavioral issues, he was seen over the weekend destroying property while in the community and another incident pt. snuck out of his room and peers reported him drunk. While in ER pt. presented as disorganized, unable to form sentences, drooling and spitting on the floor. Assessment: What has happened this shift: Pt slept through both breakfast and am snack. He was up for lunch. Paced the halls for a few minutes after lunch. He continues to isolate to his room most of the shift. He denies depression states, "I'm just sleeping." He shared he liked the place he was at and hopes a packet will be sent there so he can go back. S/I, H/I: Denies A/VH: Denies Sleep: Slept most of the shift ADL's: Independent, requires some prompting Group attendance: No groups this shift Were med's taken: Yes Any med S/E: None reported or observed Mental Status Exam Appearance: Disheveled, wearing green scrubs Eye contact: Good Behavior: Withdrawn, guarded, isolative, quiet Speech: Pressured Mood: appears depressed Affect: Flat Thought process: Poverty of thought Thought Content: "Bored" Cognition: Alert and oriented x2 Insight: Poor. Judgment: poor Interventions PRN's used: None Therapeutic interventions: 1:1 assessment, encouraged meals and fluids, encouraged conversation and interaction with others, medication administration/education and monitoring; Q15m safety checks. Restraints/seclusion/emergency medication: N/A Justification of Continued Inpatient Treatment: Requires interruption of current crisis, medication adjustments, and a safe and supportive environment to prevent readmission
[2020-01-29] MEDS: LORazepam 1 MG tablet PO PRN (18:01)
[2020-01-29 19:55] VITALS: BP 122/67
[2020-01-29] MEDS: olanzapine 10mg tablet PO SCH (20:03)
[2020-01-29] MEDS: divalproex sod 250mg ER (24-hour) tablet PO SCH (20:03)
[2020-01-29] MEDS: traZODone 50mg tablet PO PRN (20:03)
--- NOTE | 2020-01-29 20:44 | NUR ---
Nursing Progress Note: Legal hold: LPS Client on involuntary status for GD Report received from MARLO Ventura with use of SBAR. Why are they here: Patient is LPS conserved and was recently discharged to [facility] on 01/08/20. Patient AWOLD several times from this facility. Patient does not appear to be cognizant of the quarantine rules and insisted he comes back. Patient has been having behavioral issues, he was seen over the weekend destroying property while in the community and another incident pt. snuck out of his room and peers reported him drunk. While in ER pt. presented as disorganized, unable to form sentences, drooling and spitting on the floor. Assessment: What has happened this shift: Pt was in his room at change of shift, he requested to shower and change his bedding. Pt states he is bored and hopes he can go back to his last placement because he likes to go to the smoke shop for tobacco. Pt spent some time in the rec room socializing with peers but then quickly returned to his room. S/I, H/I: Denies A/VH: Denies Sleep: See sleep hours ADL's: Independent, requires some prompting Group attendance: ate snack in the group room Were med's taken: Yes Any med S/E: None reported or observed Mental Status Exam Appearance: adequately groomed and dressed in green scrubs, showered Eye contact: Good Behavior: Withdrawn, guarded, isolative, quiet Speech: Pressured Mood: appears depressed Affect: Flat Thought process: Poverty of thought Thought Content: "Bored" Cognition: Alert and oriented x2 Insight: Poor. Judgment: poor Interventions PRN's used: None Therapeutic interventions: 1:1 assessment, encouraged meals and fluids, encouraged conversation and interaction with others, medication administration/education and monitoring; Q15m safety checks. Restraints/seclusion/emergency medication: N/A Justification of Continued Inpatient Treatment: Requires interruption of current crisis, medication adjustments, and a safe and supportive environment to prevent readmission
[2020-01-30 07:36] VITALS: BP 104/47
[2020-01-30] MEDS: propranolol 10mg tablet PO SCH ×3 (07:47→20:21)
[2020-01-30] MEDS: benztropine 1mg tablet PO SCH ×2 (07:47→20:22)
[2020-01-30] MEDS: nicotine 14mg patch - 24hr TD SCH (07:48)
[2020-01-30] MEDS: busPIRone 5mg tablet PO SCH ×2 (07:48→20:22)
[2020-01-30] MEDS: lactose-reduced food (Ensure Enlive) - 237ml bottle PO SCH ×3 (08:00→18:31)
--- NOTE | 2020-01-30 12:03 | NUR ---
PUBLIC GUARDIAN Called Rogelio's Public Guardian, Shilpa Pollack (ph# [phone]) to inform her that he needs to see a dentist and a sales training manager. Left message requesting a call back. Also requested clarification on placement. TOBIN Bond
--- NOTE | 2020-01-30 12:39 | NUR ---
PLACEMENT Faxed placement packet to [facility] office. TOBIN Bond
--- NOTE | 2020-01-30 13:26 | NUR ---
Nursing Progress Note: Legal hold: LPS Client on involuntary status for GD Report received from Jenifer Obrien RN with use of SBAR. Why are they here: Patient is LPS conserved and was recently discharged to [facility] on 01/08/20. Patient AWOLD several times from this facility. Patient does not appear to be cognizant of the quarantine rules and insisted he comes back. Patient has been having behavioral issues, he was seen over the weekend destroying property while in the community and another incident pt. snuck out of his room and peers reported him drunk. While in ER pt. presented as disorganized, unable to form sentences, drooling and spitting on the floor. Assessment: What has happened this shift: Pt received morning Meds while still in bed and declined breakfast. He got up at 10:30 for his breakfast and ate 80% of his meal. He then paced the halls, took a shower and went back to bed. Pt again requested a dental appointment due to the pain in his mouth. Veronica REED, notified PG. Pt continues to isolate. S/I, H/I: Denies A/VH: Denies Sleep: Sleeps on and off ADL's: Showered this morning Group attendance: No groups this shift Were med's taken: Yes Any med S/E: None reported or observed Mental Status Exam Appearance: Wearing personal clothing Eye contact: Good Behavior: Withdrawn, guarded, isolative, quiet Speech: Pressured Mood: appears depressed Affect: Constricted Thought process: Thought blocking; poverty of speech Thought Content: "Bored" Cognition: Alert and oriented x3 Insight: Poor. Judgment: poor Interventions PRN's used: None Therapeutic interventions: 1:1 assessment, encouraged meals and fluids, encouraged conversation and interaction with others, medication administration/education and monitoring; Q15m safety checks. Restraints/seclusion/emergency medication: N/A Justification of Continued Inpatient Treatment: Requires interruption of current crisis, medication adjustments, and a safe and supportive environment to prevent readmission
[2020-01-30] MEDS: LORazepam 1 MG tablet PO PRN (17:58)
[2020-01-30 19:38] VITALS: BP 116/54
[2020-01-30] MEDS: traZODone 50mg tablet PO PRN (20:21)
[2020-01-30] MEDS: olanzapine 10mg tablet PO SCH (20:21)
[2020-01-30] MEDS: divalproex sod 250mg ER (24-hour) tablet PO SCH (20:22)
--- NOTE | 2020-01-31 00:26 | NUR ---
Nursing Progress Note: Legal hold: LPS Client on involuntary status for GD Report received from MARLO Ventura with use of SBAR. Why are they here: Patient is LPS conserved and was recently discharged to [facility] on 01/08/20. Patient AWOLD several times from this facility. Patient does not appear to be cognizant of the quarantine rules and insisted he comes back. Patient has been having behavioral issues, he was seen over the weekend destroying property while in the community and another incident pt. snuck out of his room and peers reported him drunk. While in ER pt. presented as disorganized, unable to form sentences, drooling and spitting on the floor. Assessment: What has happened this shift: Pt was in bed when I came on shift. He has a snack at snack time (1999), and then asked for his medication. Pt took meds and slept all night. S/I, H/I: Denies A/VH: Denies Sleep: Slept through night ADL's: Showered this morning Group attendance: No groups this shift Were med's taken: Yes Any med S/E: None reported or observed Mental Status Exam Appearance: Wearing personal clothing Eye contact: Good Behavior: Withdrawn, guarded, isolative, quiet Speech: Pressured Mood: appears depressed Affect: Constricted Thought process: Delayed responses Thought Content: relaxed Cognition: Alert and oriented x3 Insight: Poor. Judgment: poor Interventions PRN's used: None Therapeutic interventions: 1:1 assessment, encouraged conversation and interaction with others, medication administration/education and monitoring; Q15m safety checks. Restraints/seclusion/emergency medication: N/A Justification of Continued Inpatient Treatment: Requires interruption of current crisis, medication adjustments, and a safe and supportive environment to prevent readmission
[2020-01-31] MEDS: busPIRone 5mg tablet PO SCH ×2 (08:12→20:03)
[2020-01-31] MEDS: nicotine 14mg patch - 24hr TD SCH (08:12)
[2020-01-31] MEDS: benztropine 1mg tablet PO SCH ×2 (08:12→20:03)
[2020-01-31] MEDS: propranolol 10mg tablet PO SCH ×3 (08:12→20:04)
[2020-01-31] MEDS: lactose-reduced food (Ensure Enlive) - 237ml bottle PO SCH ×3 (08:22→18:10)
[2020-01-31 08:26] VITALS: BP 93/67
--- NOTE | 2020-01-31 09:44 | NUR ---
Reassessment: Pt PO slight decline to 50-75% avg meals fluctuating w/ 100% ensure enlive TIDWM added per MD still meeting needs. LBM 01/28. No nutrition concerns at this time. Will continue to monitor. Rec: 1. continue regular diet 2. Ensure Enlive TIDWM per MD 3. bowel care per rx 4. wt per rx Addendum: 01/31/20 at [address] Amended: Links added.
--- NOTE | 2020-01-31 13:00 | NUR ---
Nursing Progress Note: Legal hold: LPS Client on involuntary status for GD Report received from Jenifer Obrien RN with use of SBAR. Why are they here: Patient is LPS conserved and was recently discharged to [facility] on 01/08/20. Patient AWOLD several times from this facility. Patient does not appear to be cognizant of the quarantine rules and insisted he comes back. Patient has been having behavioral issues, he was seen over the weekend destroying property while in the community and another incident pt. snuck out of his room and peers reported him drunk. While in ER pt. presented as disorganized, unable to form sentences, drooling and spitting on the floor. Assessment: What has happened this shift: Pt received morning Meds while still in bed and declined breakfast. He got up at 11:00 for his breakfast and ate 70% of his meal. He then went back to bed sleeping until he was woke up at 1300 for lunch. Encouraged pt to get and engage w/peers. He declined. S/I, H/I: Denies A/VH: Denies Sleep: Sleeps on and off ADL's: Independent Group attendance: No groups this shift Were med's taken: Yes Any med S/E: None reported or observed Mental Status Exam Appearance: Wearing personal clothing Eye contact: Good Behavior: Withdrawn, guarded, isolative, quiet Speech: Pressured Mood: appears depressed Affect: Constricted Thought process: Thought blocking; poverty of speech Thought Content: "Bored" Cognition: Alert and oriented x3 Insight: Poor. Judgment: poor Interventions PRN's used: None Therapeutic interventions: 1:1 assessment, encouraged meals and fluids, encouraged conversation and interaction with others, provided therapeutic communication w/active listening, medication administration/education and monitoring; Q15m safety checks. Restraints/seclusion/emergency medication: N/A Justification of Continued Inpatient Treatment: Requires interruption of current crisis, medication adjustments, and a safe and supportive environment to prevent readmission
[2020-01-31 20:00] VITALS: BP 104/77
[2020-01-31] MEDS: divalproex sod 250mg ER (24-hour) tablet PO SCH (20:03)
[2020-01-31] MEDS: olanzapine 10mg tablet PO SCH (20:04)
--- NOTE | 2020-01-31 23:31 | NUR ---
Nursing Progress Note: Legal hold: LPS Client on involuntary status for GD Report received from MARLO Ventura with use of SBAR. Why are they here: Patient is LPS conserved and was recently discharged to [facility] on 01/08/20. Patient AWOLD several times from this facility. Patient does not appear to be cognizant of the quarantine rules and insisted he comes back. Patient has been having behavioral issues, he was seen over the weekend destroying property while in the community and another incident pt. snuck out of his room and peers reported him drunk. While in ER pt. presented as disorganized, unable to form sentences, drooling and spitting on the floor. Assessment: What has happened this shift: The patient was seen in the hallway at shift change. He had just eaten dinner, but asked for a snack. He then went back to his room to isolate. He states that he's doing fine. Doesn't need or want anything, "just waiting to hear about [facility] to see if I can go there." He wants to go there if possible. The patient came out for a snack, then went back to bed and HS meds. S/I, H/I: Denies A/VH: Denies Sleep: See sleep assessment ADL's: Independent Group attendance: No groups this shift Were med's taken: Yes Any med S/E: None reported or observed Mental Status Exam Appearance: Disheveled, wearing personal clothing Eye contact: Good Behavior: Withdrawn, guarded, isolative, quiet Speech: Pressured, quiet Mood: Depressed Affect: Constricted Thought process: Thought blocking; poverty of speech Thought Content: "Bored" Cognition: Alert and oriented x3 Insight: Poor. Judgment: poor Interventions PRN's used: None Therapeutic interventions: 1:1 assessment, encouraged meals and fluids, encouraged conversation and interaction with others, provided therapeutic communication w/active listening, medication administration/education and monitoring; Q15m safety checks. Restraints/seclusion/emergency medication: N/A Justification of Continued Inpatient Treatment: Requires interruption of current crisis, medication adjustments, and a safe and supportive environment to prevent readmission
[2020-02-01] MEDS: nicotine 14mg patch - 24hr TD SCH (07:46)
[2020-02-01] MEDS: busPIRone 5mg tablet PO SCH ×2 (07:46→20:04)
[2020-02-01] MEDS: propranolol 10mg tablet PO SCH ×3 (07:46→20:05)
[2020-02-01] MEDS: benztropine 1mg tablet PO SCH ×2 (07:47→20:04)
[2020-02-01 08:00] VITALS: BP 100/55
[2020-02-01] MEDS: lactose-reduced food (Ensure Enlive) - 237ml bottle PO SCH ×3 (08:00→18:07)
--- NOTE | 2020-02-01 13:01 | NUR ---
Nursing Progress Note: Legal hold: LPS Client on involuntary status for GD Report received from MARLO Ventura with use of SBAR. Why are they here: Patient is LPS conserved and was recently discharged to [facility] on 01/08/20. Patient AWOLD several times from this facility. Patient does not appear to be cognizant of the quarantine rules and insisted he comes back. Patient has been having behavioral issues, he was seen over the weekend destroying property while in the community and another incident pt. snuck out of his room and peers reported him drunk. While in ER pt. presented as disorganized, unable to form sentences, drooling and spitting on the floor. Assessment: What has happened this shift: Pt declined breakfast until 1030 when he got up and asked this nurse to warm his food up so he could it. Pt is medication compliant. Pt states, "I am fine, just bored, waiting to get out of here." S/I, H/I: Denies A/VH: Denies Sleep: Sleeps on and off ADL's: Independent Group attendance: Did not attend AM group; stated, "I'll go to afternoon group." Were med's taken: Yes Any med S/E: None reported or observed Mental Status Exam Appearance: Wearing personal clothing Eye contact: Good Behavior: Withdrawn, quiet Speech: Audible, clear, normal rate and rhythm Mood: Depressed Affect: Constricted Thought process: Linear Thought Content: discharge Cognition: Alert and oriented x3 Insight: Poor. Judgment: Fair Interventions PRN's used: None Therapeutic interventions: 1:1 assessment, encouraged meals and fluids, encouraged conversation and interaction with others, provided therapeutic communication w/active listening, medication administration/education and monitoring; Q15m safety checks. Restraints/seclusion/emergency medication: N/A Justification of Continued Inpatient Treatment: Requires interruption of current crisis, medication adjustments, and a safe and supportive environment to prevent readmission
[2020-02-01 20:02] VITALS: BP 108/65
[2020-02-01] MEDS: divalproex sod 250mg ER (24-hour) tablet PO SCH (20:05)
[2020-02-01] MEDS: olanzapine 10mg tablet PO SCH (20:05)
--- NOTE | 2020-02-01 22:30 | NUR ---
Nursing Progress Note: Legal hold: LPS Client on involuntary status for GD Report received from MARLO Ventura with use of SBAR. Why are they here: Patient is LPS conserved and was recently discharged to [facility] on 01/08/20. Patient AWOLD several times from this facility. Patient does not appear to be cognizant of the quarantine rules and insisted he comes back. Patient has been having behavioral issues, he was seen over the weekend destroying property while in the community and another incident pt. snuck out of his room and peers reported him drunk. While in ER pt. presented as disorganized, unable to form sentences, drooling and spitting on the floor. Assessment: What has happened this shift: The patient stayed in bed until snack time. He states that he's fine, just bored with waiting for something to happen. He denies any needs or wants related to his care here. The patient took his snack to his room, while waiting for HS meds. he went to sleep after. S/I, H/I: Denies A/VH: Denies Sleep: See sleep assessment ADL's: Independent Group attendance: No groups this shift Were med's taken: Yes Any med S/E: None reported or observed Mental Status Exam Appearance: Disheveled, wearing personal clothing Eye contact: Good Behavior: Withdrawn, guarded, isolative, quiet Speech: Pressured, quiet Mood: Depressed Affect: Constricted Thought process: Thought blocking; poverty of speech Thought Content: "Bored" Cognition: Alert and oriented x3 Insight: Poor. Judgment: poor Interventions PRN's used: None Therapeutic interventions: 1:1 assessment, encouraged meals and fluids, encouraged conversation and interaction with others, provided therapeutic communication w/active listening, medication administration/education and monitoring; Q15m safety checks. Restraints/seclusion/emergency medication: N/A Justification of Continued Inpatient Treatment: Requires interruption of current crisis, medication adjustments, and a safe and supportive environment to prevent readmission
[2020-02-02 07:53] VITALS: BP 96/51
[2020-02-02] MEDS: lactose-reduced food (Ensure Enlive) - 237ml bottle PO SCH ×3 (08:00→20:04)
[2020-02-02] MEDS: nicotine 14mg patch - 24hr TD SCH (08:00)
[2020-02-02 08:30] VITALS: BP 110/80
[2020-02-02] MEDS: busPIRone 5mg tablet PO SCH ×2 (09:05→20:02)
[2020-02-02] MEDS: propranolol 10mg tablet PO SCH ×3 (09:05→20:01)
[2020-02-02] MEDS: benztropine 1mg tablet PO SCH ×2 (09:05→20:01)
[2020-02-02 13:30] VITALS: BP 113/61
--- NOTE | 2020-02-02 16:13 | NUR ---
Nursing Progress Note: Legal hold: LPS Client on involuntary status for GD Report received from nurse with use of SBAR: Maggie RN Why are they here: Patient is LPS conserved and was recently discharged to [facility] on 01/08/20. Patient AWOLD several times from this facility. Patient does not appear to be cognizant of the quarantine rules and insisted he comes back. Patient has been having behavioral issues, he was seen over the weekend destroying property while in the community and another incident pt. snuck out of his room and peers reported him drunk. While in ER pt. presented as disorganized, unable to form sentences, drooling and spitting on the floor. Assessment What has happened this shift: Received pt. sleeping in bed at the beginning of the shift, he slept through breakfast as is his routine. 1:1 completed later at bedside, pt. remains very resistant to talk and responds to close-ended questions only with minimal responses. Pt. denies all MH s/s, however appears to be internally preoccupied at times AEB mumbling to himself. County worker in to talk to pt. later, and pt. reports that he learned that he will have to stay in a locked facility for a couple more months. Pt. admits that he is a little disappointed to learn this, however he reports understanding. Pt. continued to be withdrawn throughout the day, paces the unit at times, and is not observed to be interacting with others. S/I, H/I: Denies A/VH: Denies, however appears to be internally preoccupied at times AEB mumbling to himself Sleep: Pt. reports he slept well, sleep hours are 8.25 ADL's: Requires some direction Group attendance: No Were meds taken: Yes Any med S/E: None Mental Status Exam Appearance: Slightly disheveled, however appropriately dressed Eye contact: Fair Behavior: Cooperative, fatigued, guarded, and withdrawn Speech: Soft, pt. responds to close-ended questions only with minimal response Mood: Guarded Affect: Flat Thought process: Poverty of thought with possible thought blocking Thought Content: Ongoing A/V/HURST Cognition: A&O X2 Insight: Poor Judgment: Poor Interventions PRN's used: None Therapeutic interventions: Maintained a safe and supportive environment, ensured contract for safety, provided clear and simple instructions, attempted to orient to reality, monitored behaviors and need for intervention, provided positive encouragement and active listening, and maintained Q 15min safety checks. Restraints/seclusion/emergency medication: N/A Justification of Continued Inpatient Treatment: Per Dr. De La O, pt. does not require any further change in medications or treatment, discharge per public guardian.
[2020-02-02 20:00] VITALS: BP 123/64
[2020-02-02] MEDS: traZODone 50mg tablet PO PRN (20:01)
[2020-02-02] MEDS: olanzapine 10mg tablet PO SCH (20:01)
[2020-02-02] MEDS: divalproex sod 250mg ER (24-hour) tablet PO SCH (20:01)
--- NOTE | 2020-02-02 23:01 | NUR ---
Nursing Progress Note: Legal hold: LPS Report received from Lorenzo SELLERS with use of SBAR Why are they here: Patient is LPS conserved and was recently discharged to [facility] on 01/08/20. Patient AWOLD several times from this facility. Patient does not appear to be cognizant of the quarantine rules and insisted he comes back. Patient has been having behavioral issues, he was seen over the weekend destroying property while in the community and another incident pt. snuck out of his room and peers reported him drunk. While in ER pt. presented as disorganized, unable to form sentences, drooling and spitting on the floor. Assessment What has happened this shift: The patient has been isolating in his room the entire evening laying on his bed in the dark. He was cooperative with the evening assessment but his replies were minimal, soft and monotone. Eye contact was only sporadic. He appeared disheveled with his hair uncombed. He stated he has not showered in several days. He was asked about his discharge but he was not sure what they were. He denies that he was having medication side effects and that he felt the medications were helping him and he was medication compliant. He was not able to name what medications he was receiving and they were reviewed with him. He was able to accurately name the day, date and month. He denies thoughts to harm himself or others. He denies auditory or visual hallucinations. He described his mood as "neutral" He requires prompting for ADLs. His insight and judgement are impaired. He has had no behaviors that have required redirection. Justification of Continued Inpatient Treatment: The patient is on LPS conservatorship and the Public Guardian's office is seeking an appropriate treatment facility.
[2020-02-03] MEDS: nicotine 14mg patch - 24hr TD SCH (08:00)
[2020-02-03] MEDS: lactose-reduced food (Ensure Enlive) - 237ml bottle PO SCH ×3 (08:00→17:58)
[2020-02-03 08:20] VITALS: BP 110/70
[2020-02-03] MEDS: benztropine 1mg tablet PO SCH ×2 (08:23→20:20)
[2020-02-03] MEDS: propranolol 10mg tablet PO SCH ×3 (08:23→20:20)
[2020-02-03] MEDS: busPIRone 5mg tablet PO SCH (08:23)
[2020-02-03 08:31] VITALS: BP 99/58
[2020-02-03 12:48] VITALS: BP 106/60
--- NOTE | 2020-02-03 13:29 | NUR ---
Nursing Progress Note: Legal hold: LPS Client on involuntary status for GD Report received from nurse with use of SBAR: MARLO Serrano Why are they here: Patient is LPS conserved and was recently discharged to [facility] on 01/08/20. Patient AWOLD several times from this facility. Patient does not appear to be cognizant of the quarantine rules and insisted he comes back. Patient has been having behavioral issues, he was seen over the weekend destroying property while in the community and another incident pt. snuck out of his room and peers reported him drunk. While in ER pt. presented as disorganized, unable to form sentences, drooling and spitting on the floor. Assessment What has happened this shift: Received pt. sleeping in bed at the beginning of the shift, he slept through breakfast again as is his routine, however was compliant with AM medications. 1:1 completed at bedside, pt. remains guarded in conversation and responds to close-ended questions only with minimal responses. He continues to deny all MH s/s, however admits to some anxiety. When questioned by this auto service writer regarding the cause for his anxiety, pt. states, "I'm just anxious in general." Pt. does not appear anxious, however continues to exhibit some internal preoccupation at times AEB mumbling to himself. Pt. does not attend AM group and naps intermittently throughout the morning. He does get up for lunch and complies with talking a shower afterwards with encouragement from this auto service writer. Again, pt. remains withdrawn, and is not observed to be interacting with others. S/I, H/I: Denies A/VH: Denies, however appears to be internally preoccupied at times AEB mumbling to himself Sleep: Pt. reports he slept well, sleep hours are 8, he naps intermittently throughout the morning. ADL's: Requires some direction Group attendance: No Were meds taken: Yes Any med S/E: None Mental Status Exam Appearance: Freshly showered and appropriately dressed Eye contact: Fair Behavior: Cooperative, fatigued, anxious, guarded, and withdrawn Speech: Soft, pt. responds to close-ended questions only with minimal response Mood: Guarded Affect: Flat Thought process: Poverty of thought with possible thought blocking Thought Content: Ongoing A/V/HURST Cognition: A&O X2 Insight: Poor Judgment: Poor Interventions PRN's used: None Therapeutic interventions: Maintained a safe and supportive environment, ensured contract for safety, provided clear and simple instructions, attempted to orient to reality, monitored behaviors and need for intervention, provided positive encouragement and active listening, encouraged to complete ADLs and participate on the unit, and maintained Q 15min safety checks. Restraints/seclusion/emergency medication: N/A Justification of Continued Inpatient Treatment: Per Dr. De La O, pt. does not require any further change in medications or treatment, discharge per public guardian.
[2020-02-03] MEDS: LORazepam 1 MG tablet PO PRN (18:58)
[2020-02-03 20:19] VITALS: BP 117/76
[2020-02-03] MEDS: divalproex sod 250mg ER (24-hour) tablet PO SCH (20:20)
[2020-02-03] MEDS: traZODone 50mg tablet PO PRN (20:20)
[2020-02-03] MEDS: olanzapine 10mg tablet PO SCH (20:20)
[2020-02-03] MEDS: busPIRone 15mg tablet PO SCH (20:20)
--- NOTE | 2020-02-03 22:35 | NUR ---
Nursing Progress Note: Legal hold: LPS Conserved Report received from Omar SELLERS with use of SBAR Why are they here: Patient is LPS conserved and was recently discharged to [facility] on 01/08/20. Patient AWOLD several times from this facility. Patient does not appear to be cognizant of the quarantine rules and insisted he comes back. Patient has been having behavioral issues, he was seen over the weekend destroying property while in the community and another incident pt. snuck out of his room and peers reported him drunk. While in ER pt. presented as disorganized, unable to form sentences, drooling and spitting on the floor. Assessment What has happened this shift: The patient was up on the unit and walking in the hallway. Some social contact with male peer. He appeared better groomed this evening and he stated that he had showered earlier in the day. He was cooperative with the evening assessment but his replies to the assessment questions were minimal and vague. He stated that his day was "alright" and that he did not attend any of the groups today. He did stated that his anxiety was very high and rated it at a 7/10 and requested and received PRN Ativan with good results. He was medication compliant and he denied having any medication side effects. He denied psychotic symptoms. He denied feeling depressed. He denies thoughts of wanting to harm himself or others. Eye contact was fair. His affect was blunted and his repies to questions were monotone. He believes that he will be going to [facility]. Insight and judgement are impaired. When asked what he likes to do for fun he stated he likes to smoke cigarettes. Justification of Continued Inpatient Treatment: The patient is a conserved patient and the Public Guardian's office is looking for an appropriate placement for him.
[2020-02-04 07:39] VITALS: BP 97/54
[2020-02-04] MEDS: nicotine 14mg patch - 24hr TD SCH (08:00)
[2020-02-04] MEDS: lactose-reduced food (Ensure Enlive) - 237ml bottle PO SCH ×3 (08:00→17:48)
[2020-02-04 08:20] VITALS: BP 105/70
[2020-02-04] MEDS: propranolol 10mg tablet PO SCH ×3 (08:29→20:32)
[2020-02-04] MEDS: busPIRone 15mg tablet PO SCH ×2 (08:29→20:31)
[2020-02-04] MEDS: benztropine 1mg tablet PO SCH ×2 (08:29→20:32)
--- NOTE | 2020-02-04 10:32 | NUR ---
PLACEMENT Tony's packet is currently at [facility], and [facility]. Kim (ph# [phone]) from [facility] called yesterday to inquire about Tony. TOBIN Bond
--- NOTE | 2020-02-04 12:15 | NUR ---
Nursing Progress Note: Legal hold: LPS Client on involuntary status for GD Report received from nurse with use of SBAR: MARLO Serrano Why are they here: Patient is LPS conserved and was recently discharged to [facility] on 01/08/20. Patient AWOLD several times from this facility. Patient does not appear to be cognizant of the quarantine rules and insisted he comes back. Patient has been having behavioral issues, he was seen over the weekend destroying property while in the community and another incident pt. snuck out of his room and peers reported him drunk. While in ER pt. presented as disorganized, unable to form sentences, drooling and spitting on the floor. Assessment What has happened this shift: Received pt. sleeping in bed at the beginning of the shift, he again slept through breakfast as is his routine, and continued to isolate in bed throughout the morning. 1:1 completed at bedside, pt. remains cooperative, however guarded and withdrawn. He continues to respond to questions with minimal 'yes/no' responses. Pt. denies all MH s/s, including anxiety, and he does not appear to be visibility anxious. He remains withdrawn throughout the morning, however is observed to be interacting minimally with his roommate at times. S/I, H/I: Denies A/VH: Denies, does not appear to be internally preoccupied Sleep: Pt. reports he slept well, sleep hours are 7.5, he naps intermittently throughout the morning. ADL's: Requires some direction Group attendance: No Were meds taken: Yes Any med S/E: None Mental Status Exam Appearance: Hair slightly disheveled and appropriately dressed Eye contact: Fair Behavior: Cooperative, fatigued, guarded, and withdrawn Speech: Soft, pt. responds to close-ended questions only with minimal response Mood: Guarded Affect: Flat Thought process: Poverty of thought with possible thought blocking Thought Content: Ongoing A/V/HURST Cognition: A&O X2 Insight: Poor Judgment: Poor Interventions PRN's used: None Therapeutic interventions: Maintained a safe and supportive environment, ensured contract for safety, provided clear and simple instructions, attempted to orient to reality, monitored behaviors and need for intervention, provided positive encouragement and active listening, encouraged to complete ADLs and participate on the unit, and maintained Q 15min safety checks. Restraints/seclusion/emergency medication: N/A Justification of Continued Inpatient Treatment: Per Dr. De La O, pt. does not require any further change in medications or treatment, discharge per public guardian.
[2020-02-04 12:50] VITALS: BP 103/60
[2020-02-04 19:00] VITALS: BP 123/71
[2020-02-04] MEDS: olanzapine 10mg tablet PO SCH (20:31)
[2020-02-04] MEDS: traZODone 50mg tablet PO PRN (20:31)
[2020-02-04] MEDS: divalproex sod 250mg ER (24-hour) tablet PO SCH (20:32)
--- NOTE | 2020-02-04 23:47 | NUR ---
Nursing Progress Note: Legal hold: LPS Client on involuntary status for GD Report received from MARLO Ventura with use of SBAR. Why are they here: Patient is LPS conserved and was recently discharged to [facility] on 01/08/20. Patient AWOLD several times from this facility. Patient does not appear to be cognizant of the quarantine rules and insisted he comes back. Patient has been having behavioral issues, he was seen over the weekend destroying property while in the community and another incident pt. snuck out of his room and peers reported him drunk. While in ER pt. presented as disorganized, unable to form sentences, drooling and spitting on the floor. Assessment: What has happened this shift: Pt primarily isolated to his room this shift, but was observed to attend snack and pace the halls a few times. Pt cooperative with assessment but denied all symptoms, giving vague usually one word responses. Stated his day overall was "okay" but pt appears downcast. Requested tea several times this evening but otherwise no other requests. Pt medication complaint and went to sleep shortly after administration. S/I, H/I: Denies A/VH: Denies Sleep: See sleep assessment ADL's: Independent Group attendance: No groups this shift Were med's taken: Yes Any med S/E: None reported nor observed Mental Status Exam Appearance: Clean, wearing personal clothing Eye contact: Good Behavior: Withdrawn, guarded, isolative, quiet Speech: Normal rate, quiet Mood: 'Okay" but pt appears downcast Affect: Blunted Thought process: Poverty of speech Thought Content: wanting snacks and tea Cognition: Alert and oriented x3 Insight: Poor Judgment: Poor Interventions PRN's used: None Therapeutic interventions: 1:1 assessment, encouraged meals and fluids, encouraged conversation and interaction with others, provided therapeutic communication w/active listening, medication administration/education and monitoring; Q15m safety checks. Restraints/seclusion/emergency medication: N/A Justification of Continued Inpatient Treatment: Pt LPS conserved and awaiting placement. Requires medication management, and a safe and supportive environment to prevent readmission and gain safe placement.
[2020-02-05 07:49] VITALS: BP 96/50
[2020-02-05 08:00] VITALS: BP 130/70
[2020-02-05] MEDS: propranolol 10mg tablet PO SCH ×3 (08:51→20:21)
[2020-02-05] MEDS: busPIRone 15mg tablet PO SCH ×2 (08:51→20:21)
[2020-02-05] MEDS: benztropine 1mg tablet PO SCH ×2 (08:51→20:21)
[2020-02-05] MEDS: lactose-reduced food (Ensure Enlive) - 237ml bottle PO SCH ×3 (08:53→17:43)
[2020-02-05] MEDS: nicotine 14mg patch - 24hr TD SCH (08:56)
[2020-02-05] MEDS: NICOTINE POLACRILEX 2 MG LOZENGE BC PRN ×2 (08:56→12:02)
--- NOTE | 2020-02-05 10:00 | NUR ---
Group Therapy: Process Group This Clinicians goals for this process group were as follows: (1) Ask scaling questions about patients current anxiety, depression, and irritability symptoms as a check-in. (2) Share psychoeducation about three rules of brief solution-focused problem-solving: A) Stop doing what clearly isnt working, B) Do something different, C) If the different activity works, then do more of it. If it doesnt work, then go back to principle A). (3) Identify examples of thoughts, activities, and behaviors that people do that no longer work for them, or they create more problems than solutions. (4) Identify examples of thoughts, activities, and behaviors that may help create better emotional/behavioral outcomes and lead to good solutions to problems. (5) Engage patients in discussion of the topics shared within the group milieu. Patient presented as properly oriented to person, place, and situation during the process group. Patient was invited to group by a peer. He attended initially at the beginning of the process group, but asked for permission to come-and-go if he needed to, which this Clinician granted. Patient was dressed in a white t-shirt, blue basketball shorts, and flip flops that were appropriate within the milieu. Psychomotor activity was unremarkable. Patient only was present in the group milieu briefly. He did not provide answers to scaling questions about his levels of depression, anxiety, and anger/irritability. This Clinician did not observe Patient responding to any internal stimuli during session. He gladly took two worksheets that this Clinician provided on brief solution-focused problem solving methods. Patient came and went quietly in-and-out of the process group for the first fifteen minutes of the process group, then left the group and did not return. He did not verbally participate in the group conversation on strength-based problem solving thinking. This Clinician observed Patient wearing head phones in the [address] in the medical milieu as he was facilitating class after that. Dilip Price MA, TOBIN Addendum: 02/05/20 at 1130 by Dilip Price SS Amended: Links added.
[2020-02-05 12:02] VITALS: BP 118/65
--- NOTE | 2020-02-05 13:11 | NUR ---
Nursing Progress Note: Legal hold: LPS Client on involuntary status for GD Report received from nurse with use of SBAR: Maggie RN Why are they here: Patient is LPS conserved and was recently discharged to [facility] on 01/08/20. Patient AWOLD several times from this facility. Patient does not appear to be cognizant of the quarantine rules and insisted he comes back. Patient has been having behavioral issues, he was seen over the weekend destroying property while in the community and another incident pt. snuck out of his room and peers reported him drunk. While in ER pt. presented as disorganized, unable to form sentences, drooling and spitting on the floor. Assessment What has happened this shift: Received pt. sleeping in bed at the beginning of the shift, he was awoken by staff and attended breakfast this morning and complied, consumed 100% as well as ordered Ensure. This health science writer questioned pt. regarding the change in his behaviors this morning (regarding attending breakfast), pt. stated in a confused way, "What change? I don't have any change, do you?" 1:1 completed at bedside, pt. remains cooperative with conversation, however guarded and answers questions with minimal responses. He continues to deny all MH s/s, as well as anxiety, however appears to be visibly anxious AEB restlessness and fidgeting during the conversation. Pt. proceeds to pace throughout most of the shift, he denies the need for any intervention but does request PRN Nicotine Lozenges at intervals and accepts headphones. Pt. walks barefoot as is his usual preference, he was encouraged to wear sandals and educated on infection precautions, he reported understanding and consented to this. Pt. remains withdrawn and is not observed to be interacting with with others during his pacing, he does appear to be somewhat internally preoccupied AEB stopping to stare blankly at times or pointing and laughing at things that are not there. S/I, H/I: Denies A/VH: Denies, appears to be somewhat internally preoccupied AEB will stop and stare blankly at times or point and laugh at things that are not there. Sleep: Pt. reports he slept well, sleep hours are 7.5 ADL's: Requires some direction Group attendance: No, encouraged pt to attend groups today, however he stated, "I can't sit for that long, I get too anxious." Were meds taken: Yes Any med S/E: None Mental Status Exam Appearance: Hair slightly disheveled and appropriately dressed Eye contact: Fair Behavior: Cooperative, restless, guarded, and withdrawn Speech: Soft, pt. responds to close-ended questions only with minimal response Mood: Guarded Affect: Flat Thought process: Poverty of thought with possible thought blocking Thought Content:Possibly A/V/HURST Cognition: A&O X2 Insight: Poor Judgment: Poor Interventions PRN's used: Nicotine Lozenges Therapeutic interventions: Maintained a safe and supportive environment, ensured contract for safety, provided clear and simple instructions, attempted to orient to reality, monitored behaviors and need for intervention, provided positive encouragement and active listening, encouraged to complete ADLs and participate on the unit, encouraged to wear sandals and educated on infection precautions, and maintained Q 15min safety checks. Restraints/seclusion/emergency medication: N/A Justification of Continued Inpatient Treatment: Per Dr. De La O, pt. is at baseline, however will titrate one medication, discharge per public guardian.
[2020-02-05 20:00] VITALS: BP 125/82
[2020-02-05] MEDS: divalproex sod 250mg ER (24-hour) tablet PO SCH (20:21)
[2020-02-05] MEDS: olanzapine 10mg tablet PO SCH (20:21)
[2020-02-05] MEDS: traZODone 50mg tablet PO PRN (20:21)
--- NOTE | 2020-02-06 04:23 | NUR ---
Nursing Progress Note: Legal hold: LPS Client on involuntary status for GD Report received from RN with use of SBAR. Why are they here: Patient is LPS conserved and was recently discharged to [facility] on 01/08/20. Patient AWOLD several times from this facility. Patient does not appear to be cognizant of the quarantine rules and insisted he comes back. Patient has been having behavioral issues, he was seen over the weekend destroying property while in the community and another incident pt. snuck out of his room and peers reported him drunk. While in ER pt. presented as disorganized, unable to form sentences, drooling and spitting on the floor. Assessment: What has happened this shift: Patient laying in bed awake at the beginning of shift. Pleasant and cooperative with all care; compliant with medication. PRN Trazodone provided with positive effect. Denies SI, HI, A/VH. He participated in HS snack in the group room and shortly after c/o increased anxiety and briefly paced the [address] before returning to bed. Patient observed sleeping and does not appear to be having difficulty. S/I, H/I: Denies A/VH: Denies Sleep: Refer to sleep assessment ADL's: Independent Group attendance: No groups this shift Were med's taken: Yes Any med S/E: None reported nor observed Mental Status Exam Appearance: Clean, appropriate personal attire. Eye contact: Good Behavior: Guarded, isolative, quiet Speech: Normal rate/rhythm, quiet tone Mood: Depressed; anxious Affect: Blunted Thought process: Poverty of speech Thought Content: Coffee and snacks; increased anxiety. Cognition: Alert and oriented x3 Insight: Poor Judgment: Poor Interventions PRN's used: Trazodone Therapeutic interventions: 1:1 assessment, encouraged meals and fluids, encouraged conversation and interaction with others, provided therapeutic communication w/active listening, medication administration/education and monitoring; Q15m safety checks. Restraints/seclusion/emergency medication: N/A Justification of Continued Inpatient Treatment: Pt LPS conserved and awaiting placement. Requires medication management, and a safe and supportive environment to prevent readmission and gain safe placement.
[2020-02-06 07:33] VITALS: BP 97/60
[2020-02-06] MEDS: propranolol 10mg tablet PO SCH ×3 (08:00→20:21)
[2020-02-06] MEDS: nicotine 14mg patch - 24hr TD SCH (08:00)
[2020-02-06] MEDS: lactose-reduced food (Ensure Enlive) - 237ml bottle PO SCH ×3 (08:00→18:02)
[2020-02-06] MEDS: busPIRone 15mg tablet PO SCH ×2 (08:23→20:21)
[2020-02-06] MEDS: benztropine 1mg tablet PO SCH ×2 (08:24→20:21)
[2020-02-06 12:38] VITALS: BP 107/64
--- NOTE | 2020-02-06 17:38 | NUR ---
Nursing Progress Note: Legal hold: LPS Client on involuntary status for GD Report received from MARLO Barone with use of SBAR. Why are they here: Patient is LPS conserved and was recently discharged to [facility] on 01/08/20. Patient AWOLD several times from this facility. Patient does not appear to be cognizant of the quarantine rules and insisted he comes back. Patient has been having behavioral issues, he was seen over the weekend destroying property while in the community and another incident pt. snuck out of his room and peers reported him drunk. While in ER pt. presented as disorganized, unable to form sentences, drooling and spitting on the floor. Assessment: What has happened this shift: Pt did not attend breakfast. When RN went to give meds pt asked for coffee but did not want food. He went back to bed until lunch. He did attend lunch and took meds but then went back to bed. When RN was doing 1:1 pt denies all MH symptoms but responds minimal with very short mumbled answers. He did not want to interact with others and remained isolative. He attended snack and went back to his room. S/I, H/I: Pt Denies A/VH: Pt Denies Sleep: Napped through the day ADL's: Independent Group attendance: No Were med's taken: Yes Any med S/E: None noted Mental Status Exam Appearance: Disheveled. Wearing his own clothes Eye contact: Fair Behavior: Isolative Speech: Mumbled, soft Mood: Depressed Affect: Flat Thought process: Poverty of thought Thought Content: Unable to assess Cognition: Alert Insight: Poor Judgment: Poor Interventions PRN's used: None Therapeutic interventions: 1:1 assessment, encouraged meals and fluids, encouraged conversation and interaction with others, provided therapeutic communication w/active listening, medication administration/education and monitoring; Q15m safety checks. Restraints/seclusion/emergency medication: N/A Justification of Continued Inpatient Treatment: Pt LPS conserved and awaiting placement. Requires medication management, and a safe and supportive environment to prevent readmission and gain safe placement.
[2020-02-06 19:20] VITALS: BP 123/79
[2020-02-06] MEDS: divalproex sod 250mg ER (24-hour) tablet PO SCH (20:21)
[2020-02-06] MEDS: olanzapine 10mg tablet PO SCH (20:21)
[2020-02-06] MEDS: traZODone 50mg tablet PO PRN (20:21)
--- NOTE | 2020-02-07 04:25 | NUR ---
Nursing Progress Note: Legal hold: LPS Client on involuntary status for GD Report received from RN with use of SBAR. Why are they here: Patient is LPS conserved and was recently discharged to [facility] on 01/08/20. Patient AWOLD several times from this facility. Patient does not appear to be cognizant of the quarantine rules and insisted he comes back. Patient has been having behavioral issues, he was seen over the weekend destroying property while in the community and another incident pt. snuck out of his room and peers reported him drunk. While in ER pt. presented as disorganized, unable to form sentences, drooling and spitting on the floor. Assessment: What has happened this shift: Patient pacing the unit at the beginning of shift. Pleasant and cooperative with all care; compliant with medication. PRN Trazodone provided upon request. Patient denies SI, HI, A/VH. He participated in HS snack and quickly retired to bed. Patient observed sleeping and does not appear to be having difficulty. S/I, H/I: Denies A/VH: Denies Sleep: Refer to sleep assessment ADL's: Independent Group attendance: No groups this shift Were med's taken: Yes Any med S/E: None reported nor observed Mental Status Exam Appearance: Clean, appropriate personal attire. Eye contact: Good Behavior: Guarded, isolative, quiet Speech: Normal rate/rhythm, quiet tone Mood: Depressed; anxious Affect: Blunted Thought process: Poverty of speech Thought Content: Meetings needs Cognition: Alert and oriented x3 Insight: Poor Judgment: Poor Interventions PRN's used: Trazodone Therapeutic interventions: 1:1 assessment, encouraged meals and fluids, encouraged conversation and interaction with others, provided therapeutic communication w/active listening, medication administration/education and monitoring; Q15m safety checks. Restraints/seclusion/emergency medication: N/A Justification of Continued Inpatient Treatment: Pt LPS conserved and awaiting placement. Requires medication management, and a safe and supportive environment to prevent readmission and gain safe placement.
[2020-02-07 07:18] VITALS: BP 99/61
[2020-02-07] MEDS: nicotine 14mg patch - 24hr TD SCH (08:00)
[2020-02-07] MEDS: lactose-reduced food (Ensure Enlive) - 237ml bottle PO SCH ×4 (08:00→17:40)
[2020-02-07] MEDS: propranolol 10mg tablet PO SCH ×3 (08:00→20:53)
[2020-02-07] MEDS: busPIRone 15mg tablet PO SCH ×2 (08:17→20:53)
[2020-02-07] MEDS: benztropine 1mg tablet PO SCH ×2 (08:17→20:53)
[2020-02-07 12:30] VITALS: BP 126/76
--- NOTE | 2020-02-07 13:24 | NUR ---
Nursing Progress Note: Legal hold: LPS Client on involuntary status for GD Report received from RN Jenifer Mccauley with use of SBAR. Why are they here: Patient is LPS conserved and was recently discharged to [facility] on 01/08/20. Patient AWOLD several times from this facility. Patient does not appear to be cognizant of the quarantine rules and insisted he comes back. Patient has been having behavioral issues, he was seen over the weekend destroying property while in the community and another incident pt. snuck out of his room and peers reported him drunk. While in ER pt. presented as disorganized, unable to form sentences, drooling and spitting on the floor. Assessment: What has happened this shift: Pt refused to get up for breakfast, he did take his medications and allow a brief physical assessment though was mildly irritable and moderately dismissive. Morning Propranolol 10 mg was held as pt's SBP was below 100. Pt refused his nicotine patch indicating that he doesn't need it. Notified Dr De La O and Pt was up for lunch and was given his lunch time propranolol. Pt denies all symptoms. Pt was mostly isolative to self and room this morning. S/I, H/I: Pt denies A/VH: Pt denies Sleep: Pt slept 7.25 hours per noc shift report, pt napped for most of the morning. ADL's: Independent Group attendance: No Were med's taken: Yes Any med S/E: None noted or reported. Mental Status Exam Appearance: Disheveled, appropriate personal attire. Eye contact: Fair Behavior: Guarded, isolative, likes to sleep until lunchtime. Speech: Minimal, mumbles, poverty of speech. Mood: Irritable Affect: Constricted Thought process: Poverty of thought Thought Content: Doesn't need nicotine patch, wants to sleep. Cognition: A/O X 3 Insight: Poor Judgment: Impaired Interventions PRN's used: None Therapeutic interventions: 1:1 assessment, encouraged pt to get up for meals, encouraged pt to express his thoughts and feelings, active listening, therapeutic communication, medication administration/education and monitoring, Q15m safety checks. Restraints/seclusion/emergency medication: N/A Justification of Continued Inpatient Treatment: Pt LPS conserved and awaiting placement. Requires medication management, and a safe and supportive environment to prevent readmission and gain safe placement.
--- NOTE | 2020-02-07 16:49 | NUR ---
F/u (02/06): Pt PO 50-75% avg regular diet fluctuates w/ refusals at times though 100% ensure enlives TIDWM meeting needs. LBM 02/05. No nutrition concerns at this time. Will continue to monitor. Rec: 1. continue regular diet; encourage PO 2. Ensure Enlive TIDWM per MD 3. bowel care per rx 4. wt per rx Addendum: 02/07/20 at [address] Amended: Links added.
[2020-02-07 19:41] VITALS: BP 131/74
[2020-02-07] MEDS: traZODone 50mg tablet PO PRN (20:53)
[2020-02-07] MEDS: olanzapine 10mg tablet PO SCH (20:53)
[2020-02-07] MEDS: divalproex sod 250mg ER (24-hour) tablet PO SCH (20:54)
--- NOTE | 2020-02-08 04:40 | NUR ---
Nursing Progress Note: Legal hold: LPS Client on involuntary status for GD Report received from Pao SELLERS with use of SBAR. Why are they here: Patient is LPS conserved and was recently discharged to [facility] on 01/08/20. Patient AWOLD several times from this facility. Patient does not appear to be cognizant of the quarantine rules and insisted he comes back. Patient has been having behavioral issues, he was seen over the weekend destroying property while in the community and another incident pt. snuck out of his room and peers reported him drunk. While in ER pt. presented as disorganized, unable to form sentences, drooling and spitting on the floor. Assessment: What has happened this shift: Patient sitting in his bed at the beginning of shift. Pleasant and cooperative with care; compliant with medication. PRN Trazodone provided upon request. Denies SI, HI, A/VH. Patient continues to offer minimal responses and not initiating conversations unless needs are needing met. Patient observed briefly walking the halls and participated in HS snack prior to returning to bed. Patient observed sleeping and does not appear to be having difficulty. S/I, H/I: Denies A/VH: Denies Sleep: Refer to sleep assessment ADL's: Independent Group attendance: No groups this shift Were med's taken: Yes Any med S/E: None reported nor observed Mental Status Exam Appearance: Clean, appropriate personal attire. Eye contact: Good Behavior: Guarded, isolative, quiet Speech: Normal rate/rhythm, quiet tone Mood: Depressed; anxious Affect: Blunted Thought process: Poverty of speech Thought Content: Meetings needs Cognition: Alert and oriented x3 Insight: Poor Judgment: Poor Interventions PRN's used: Trazodone Therapeutic interventions: 1:1 assessment, encouraged meals and fluids, encouraged conversation and interaction with others, provided therapeutic communication w/active listening, medication administration/education and monitoring; Q15m safety checks. Restraints/seclusion/emergency medication: N/A Justification of Continued Inpatient Treatment: Pt LPS conserved and awaiting placement. Requires medication management, and a safe and supportive environment to prevent readmission and gain safe placement.
[2020-02-08 07:01] VITALS: BP 99/47
[2020-02-08] MEDS: propranolol 10mg tablet PO SCH ×3 (08:00→20:39)
[2020-02-08] MEDS: lactose-reduced food (Ensure Enlive) - 237ml bottle PO SCH ×3 (08:00→18:00)
[2020-02-08] MEDS: benztropine 1mg tablet PO SCH ×2 (08:09→20:39)
[2020-02-08] MEDS: busPIRone 15mg tablet PO SCH ×2 (08:09→20:38)
[2020-02-08 12:40] VITALS: BP 109/60
--- NOTE | 2020-02-08 12:59 | NUR ---
Nursing Progress Note: Legal hold: LPS Client on involuntary status for GD Report received from RN Jenifer Mccauley with use of SBAR. Why are they here: Patient is LPS conserved and was recently discharged to [facility] on 01/08/20. Patient AWOLD several times from this facility. Patient does not appear to be cognizant of the quarantine rules and insisted he comes back. Patient has been having behavioral issues, he was seen over the weekend destroying property while in the community and another incident pt. snuck out of his room and peers reported him drunk. While in ER pt. presented as disorganized, unable to form sentences, drooling and spitting on the floor. Assessment: What has happened this shift: Pt prefers to sleep until lunch. He did this again today. Pt refused breakfast, allowed a brief physical assessment, took his meds and went back to sleep. Morning propranolol was held again as SBP was less than 100. Pt was up for lunch, ate well and returned to his room. Pt is isolative to self and room for most of day shift, gets up and is more visible on the unit pacing and listening to radio headphones in the afternoon. Pt denies symptoms. Pt does not appear to be responding to internal stimuli. S/I, H/I: Pt denies A/VH: Pt denies Sleep: Pt slept 9.25 hours per noc shift report, pt napped for most of day shift. ADL's: Independent Group attendance: No Were med's taken: Yes Any med S/E: None noted or reported. Mental Status Exam Appearance: Disheveled, dressed in black shorts, a black t-shirt, and blue flip-flops. Eye contact: Fair Behavior: Guarded, isolative, likes to sleep until lunchtime. Speech: Minimal, mumbles, poverty of speech. Mood: Irritable Affect: Constricted Thought process: Poverty of thought Thought Content: Focuses on snacks and sleep Cognition: A/O X 3 Insight: Poor Judgment: Impaired Interventions PRN's used: None Therapeutic interventions: 1:1 assessment, encouraged pt to get up for meals, encouraged pt to express his thoughts and feelings, active listening, therapeutic communication, medication administration/education and monitoring, Q15m safety checks. Restraints/seclusion/emergency medication: N/A Justification of Continued Inpatient Treatment: Pt LPS conserved and awaiting placement. Requires medication management, and a safe and supportive environment to prevent readmission and gain safe placement.
--- NOTE | 2020-02-08 14:00 | NUR ---
DENTAL APPT 02/09/20-HIM DIRECTOR 10:15-10:30 Rogelio Massey's Public Guardian (ph# [phone]), called to report that Rogelio has a dental appt at [facility] in [place] for 11:30 AM tomorrow. PG will pick him up 10:15-10:30. Reminded her that he also needs an eye appt. TOBIN Bond
[2020-02-08 19:10] VITALS: BP 125/63
[2020-02-08] MEDS: traZODone 50mg tablet PO PRN (20:39)
[2020-02-08] MEDS: divalproex sod 250mg ER (24-hour) tablet PO SCH (20:39)
[2020-02-08] MEDS: olanzapine 10mg tablet PO SCH (20:39)
[2020-02-08] MEDS: acetaminophen 325mg tablet PO PRN (21:07)
--- NOTE | 2020-02-09 04:28 | NUR ---
Nursing Progress Note: Legal hold: LPS Client on involuntary status for GD Report received from Pao SELLERS with use of SBAR. Why are they here: Patient is LPS conserved and was recently discharged to [facility] on 01/08/20. Patient AWOLD several times from this facility. Patient does not appear to be cognizant of the quarantine rules and insisted he comes back. Patient has been having behavioral issues, he was seen over the weekend destroying property while in the community and another incident pt. snuck out of his room and peers reported him drunk. While in ER pt. presented as disorganized, unable to form sentences, drooling and spitting on the floor. Assessment: What has happened this shift: Patient in his room a the beginning of shift. Pleasant and cooperative with all care; compliant with medication. PRN Trazodone and Tylenol provided upon request. Patient denies SI, HI, A/VH. Patient is looking forward to dental appointment 02/08 AM. He showered this shift and participated in HS snack. Patient observed walking the unit after encouragement. Made his bed with clean linen prior to bed. Observed sleeping and does not appear to be having difficulty. S/I, H/I: Denies A/VH: Denies Sleep: Refer to sleep assessment ADL's: Independent Group attendance: No groups this shift Were med's taken: Yes Any med S/E: None reported nor observed Mental Status Exam Appearance: Showered, appropriate personal attire. Eye contact: Good Behavior: Guarded, isolative, quiet Speech: Normal rate/rhythm, quiet tone Mood: Depressed; anxious Affect: Blunted Thought process: Poverty of speech Thought Content: Meetings needs, dental appointment, clean linen Cognition: Alert and oriented x3 Insight: Poor Judgment: Poor Interventions PRN's used: Trazodone and Tylenol Therapeutic interventions: 1:1 assessment, encouraged meals and fluids, encouraged conversation and interaction with others, provided therapeutic communication w/active listening, medication administration/education and monitoring; Q15m safety checks. Restraints/seclusion/emergency medication: N/A Justification of Continued Inpatient Treatment: Pt LPS conserved and awaiting placement. Requires medication management, and a safe and supportive environment to prevent readmission and gain safe placement.
[2020-02-09 07:34] VITALS: BP 98/55
[2020-02-09] MEDS: lactose-reduced food (Ensure Enlive) - 237ml bottle PO SCH ×3 (08:00→18:00)
[2020-02-09] MEDS: propranolol 10mg tablet PO SCH ×3 (08:00→20:30)
[2020-02-09] MEDS: benztropine 1mg tablet PO SCH ×2 (08:30→20:30)
[2020-02-09] MEDS: busPIRone 15mg tablet PO SCH ×2 (08:30→20:30)
--- NOTE | 2020-02-09 14:48 | NUR ---
Nursing Progress Note: Legal hold: LPS Client on involuntary status for GD Report received from MARLO Serrano with use of SBAR. Why are they here: Patient is LPS conserved and was recently discharged to [facility] on 01/08/20. Patient AWOLD several times from this facility. Patient does not appear to be cognizant of the quarantine rules and insisted he comes back. Patient has been having behavioral issues, he was seen over the weekend destroying property while in the community and another incident pt. snuck out of his room and peers reported him drunk. While in ER pt. presented as disorganized, unable to form sentences, drooling and spitting on the floor. Assessment: What has happened this shift: Patient slept through breakfast, but awakened briefly for morning medications. Patient was picked up by Nadia Colin and taken to dental appt at 10:15 and returned at 13:15. Reportedly, patient ate lunch at [facility]. Patient has gained 2.6 kg since admission. Patient denies all psychotic symptoms. Patient is compliant with treatment, but tends to isolate to his room with occasional walks in hallway. S/I, H/I: Denies A/VH: Denies Sleep: 7.75 hrs NOC. Napped. ADL's: Independent Group attendance: No Were med's taken: Yes Any med S/E: None reported nor observed Mental Status Exam Appearance: Disheveled hair, dressed in casual clothing. Eye contact: Minimal. Behavior: Guarded, isolative, quiet Speech: Normal rate/rhythm, quiet tone. Minimal. Mood: Depressed. Affect: Blunted Thought process: Poverty of speech Thought Content: Dental appt. Cognition: Alert and oriented x3 Insight: Poor Judgment: Poor Interventions PRN's used: None Therapeutic interventions: 1:1 assessment, encouraged meals and fluids, encouraged conversation and interaction with others, provided therapeutic communication w/active listening, medication administration/education and monitoring. Q15m safety checks. Restraints/seclusion/emergency medication: N/A Justification of Continued Inpatient Treatment: Pt LPS conserved and awaiting placement. Requires medication management, and a safe and supportive environment to prevent readmission and gain safe placement.
[2020-02-09 19:47] VITALS: BP 126/75
[2020-02-09] MEDS: divalproex sod 250mg ER (24-hour) tablet PO SCH (20:30)
[2020-02-09] MEDS: amoxicillin 250mg capsule PO SCH (20:30)
[2020-02-09] MEDS: olanzapine 10mg tablet PO SCH (20:30)
[2020-02-09] MEDS: traZODone 50mg tablet PO PRN (20:30)
[2020-02-09] MEDS: lactobacillus rhamnosus 10,000 MMU CELLS/CAPSULE PO SCH (20:30)
--- NOTE | 2020-02-10 03:52 | NUR ---
Nursing Progress Note: Legal hold: LPS Client on involuntary status for GD Report received from Omar RN with use of SBAR. Why are they here: Patient is LPS conserved and was recently discharged to [facility] on 01/08/20. Patient AWOLD several times from this facility. Patient does not appear to be cognizant of the quarantine rules and insisted he comes back. Patient has been having behavioral issues, he was seen over the weekend destroying property while in the community and another incident pt. snuck out of his room and peers reported him drunk. While in ER pt. presented as disorganized, unable to form sentences, drooling and spitting on the floor. Assessment: What has happened this shift: Patient socializing with peers in the community room at the beginning of shift. Pleasant and cooperative with care; compliant with medication. Patient started on ABx (Amoxicillin) for abscess tooth; no ASE observed or reported at this time. PRN Trazodone provided upon request. He participated in HS snack and continued to socialize with peers in the community room. Patient joking around with health underwriter and attempted to startle health underwriter. Patient denies SI, HI, A/VH. He is aware of upcoming dental appointment for an extraction and denied feeling anxious, stated, "I've had one before." Patient observed sleeping and did not appear to be having difficulty. He woke at 0300 and began pacing the [facility] and stopping by staff to have brief conversation prior to returning to bed. S/I, H/I: Denies A/VH: Denies Sleep: Refer to sleep assessment ADL's: Independent Group attendance: No groups this shift Were med's taken: Yes Any med S/E: None reported nor observed Mental Status Exam Appearance: Neat, clean, appropriate personal attire. Eye contact: Good Behavior: Guarded, socializing and playful with peers and staff Speech: Normal rate/rhythm, quiet tone, minimal Mood: Depressed with brightening Affect: Animated Thought process: Linear Thought Content: Meetings needs Cognition: Alert and oriented x3 Insight: Poor Judgment: Poor Interventions PRN's used: Trazodone Therapeutic interventions: 1:1 assessment, encouraged meals and fluids, encouraged conversation and interaction with others, provided therapeutic communication w/active listening, medication administration/education and monitoring; Q15m safety checks. Restraints/seclusion/emergency medication: N/A Justification of Continued Inpatient Treatment: Pt LPS conserved and awaiting placement. Requires medication management, and a safe and supportive environment to prevent readmission and gain safe placement.
[2020-02-10] MEDS: lactose-reduced food (Ensure Enlive) - 237ml bottle PO SCH ×3 (08:00→18:24)
[2020-02-10 08:21] VITALS: BP 103/61
[2020-02-10] MEDS: lactobacillus rhamnosus 10,000 MMU CELLS/CAPSULE PO SCH ×2 (08:54→21:06)
[2020-02-10] MEDS: propranolol 10mg tablet PO SCH ×3 (08:54→21:06)
[2020-02-10] MEDS: benztropine 1mg tablet PO SCH ×2 (08:54→21:06)
[2020-02-10] MEDS: busPIRone 15mg tablet PO SCH ×2 (08:54→21:06)
[2020-02-10] MEDS: amoxicillin 250mg capsule PO SCH ×3 (08:54→21:06)
--- NOTE | 2020-02-10 15:30 | NUR ---
Nursing Progress Note: Legal hold: LPS Client on involuntary status for GD Report received from MARLO Serrano with use of SBAR. Why are they here: Patient is LPS conserved and was recently discharged to [facility] on 01/08/20. Patient AWOLD several times from this facility. Patient does not appear to be cognizant of the quarantine rules and insisted he comes back. Patient has been having behavioral issues, he was seen over the weekend destroying property while in the community and another incident pt. snuck out of his room and peers reported him drunk. While in ER pt. presented as disorganized, unable to form sentences, drooling and spitting on the floor. Assessment: What has happened this shift: Per report Rogelio was up pacing hallways until shift change when he went back to bed. Patient got up for meals, but slept until the afternoon when Dr. Keyes awakened him. Pt. came out of his room and started to walk hallways at 1400. Patient denies all A/V/H. Patient will answer questions with one word answers. Patient isolates to his room, rarely socializes. Pt. compliant with all treatment and medications. S/I, H/I: Denies A/VH: Denies Sleep: 6.75 hrs NOC. Long naps. ADL's: Independent Group attendance: No Were med's taken: Yes Any med S/E: None reported nor observed Mental Status Exam Appearance: Disheveled hair, dressed in casual clothing. Eye contact: Minimal. Behavior: Guarded, isolative, quiet Speech: Normal rate/rhythm, quiet tone. Minimal. Mood: Depressed. Affect: Blunted Thought process: Poverty of speech Thought Content: Sleeping. Cognition: Alert and oriented x3 Insight: Poor Judgment: Poor Interventions PRN's used: None Therapeutic interventions: 1:1 assessment, encouraged meals and fluids, encouraged conversation and interaction with others, provided therapeutic communication w/active listening, medication administration/education and monitoring. Q15m safety checks. Restraints/seclusion/emergency medication: N/A Justification of Continued Inpatient Treatment: Pt LPS conserved and awaiting placement. Requires medication management, and a safe and supportive environment to prevent readmission and gain safe placement.
--- NOTE | 2020-02-10 15:55 | NUR ---
ACCEPTED AT [facility] Rogelio has been accepted at [facility]. Admit date is unknown at this time. TOBIN Bond
[2020-02-10 20:12] VITALS: BP 125/67
[2020-02-10] MEDS: traZODone 50mg tablet PO PRN (21:06)
[2020-02-10] MEDS: divalproex sod 250mg ER (24-hour) tablet PO SCH (21:06)
[2020-02-10] MEDS: olanzapine 10mg tablet PO SCH (21:06)
--- NOTE | 2020-02-11 04:10 | NUR ---
Nursing Progress Note: Legal hold: LPS Client on involuntary status for GD Report received from Omar RN with use of SBAR. Why are they here: Patient is LPS conserved and was recently discharged to [facility] on 01/08/20. Patient AWOLD several times from this facility. Patient does not appear to be cognizant of the quarantine rules and insisted he comes back. Patient has been having behavioral issues, he was seen over the weekend destroying property while in the community and another incident pt. snuck out of his room and peers reported him drunk. While in ER pt. presented as disorganized, unable to form sentences, drooling and spitting on the floor. Assessment: What has happened this shift: Patient walking the [facility] at the beginning of shift. Pleasant and cooperative with all care; compliant with all medication. PRN Trazodone provided upon request. Patient continues PO ABx for abscess tooth with no ASE observed or reported. Patient denies pain this shift. He denies mental health symptoms and reports, "just tired." He continued to explain he'd gotten up a little too early in the morning. Patient participated in HS snack prior to bed. Observed sleeping and does not appear to be having difficulty. S/I, H/I: Denies A/VH: Denies Sleep: Refer to sleep assessment ADL's: Independent Group attendance: No groups this shift Were med's taken: Yes Any med S/E: None reported nor observed Mental Status Exam Appearance: Neat, clean, appropriate personal attire. Eye contact: Good Behavior: Guarded, socializing and playful with peers and staff Speech: Normal rate/rhythm, quiet tone, minimal Mood: Euphoric Affect: Flat Thought process: Linear Thought Content: Meetings needs, tired Cognition: Alert and oriented x3 Insight: Poor Judgment: Poor Interventions PRN's used: Trazodone Therapeutic interventions: 1:1 assessment, encouraged meals and fluids, encouraged conversation and interaction with others, provided therapeutic communication w/active listening, medication administration/education and monitoring; Q15m safety checks. Restraints/seclusion/emergency medication: N/A Justification of Continued Inpatient Treatment: Pt LPS conserved and awaiting placement. Requires medication management, and a safe and supportive environment to prevent readmission and gain safe placement.
[2020-02-11 08:00] VITALS: BP 104/55
[2020-02-11] MEDS: benztropine 1mg tablet PO SCH ×2 (08:20→20:20)
[2020-02-11] MEDS: propranolol 10mg tablet PO SCH ×3 (08:20→20:20)
[2020-02-11] MEDS: lactobacillus rhamnosus 10,000 MMU CELLS/CAPSULE PO SCH ×2 (08:20→20:19)
[2020-02-11] MEDS: busPIRone 15mg tablet PO SCH ×2 (08:21→20:20)
[2020-02-11] MEDS: lactose-reduced food (Ensure Enlive) - 237ml bottle PO SCH ×3 (08:21→17:28)
[2020-02-11] MEDS: amoxicillin 250mg capsule PO SCH ×3 (08:21→20:20)
--- NOTE | 2020-02-11 15:33 | NUR ---
NURSING PROGRESS NOTE Legal hold: LPS Client on involuntary status for GD Report received from MARLO Serrano with use of SBAR Why are they here: Patient is LPS conserved and was recently discharged to [facility] on 01/08/20. Patient AWOLD several times from this facility. Patient does not appear to be cognizant of the quarantine rules and insisted he comes back. Patient has been having behavioral issues, he was seen over the weekend destroying property while in the community and another incident pt. snuck out of his room and peers reported him drunk. While in ER pt. presented as disorganized, unable to form sentences, drooling and spitting on the floor. Assessment: What has happened this shift: Slleps through morning, refusing breakfast. Took morning medications. Eats lunch, dinners and snacks. Taking ABX for tooth infection and states it "feels better." Isolates to room covering head with sheet and appears to sleep. Up walking about for only short periods of time. States, "I feel fine." S/I, H/I: Denies A/VH: Denies Sleep: napped frequently ADL's: Independent Group attendance: No Were med's taken: Yes Any med S/E: None reported nor observed Mental Status Exam Appearance: disheveled Eye contact: fair Behavior: Guarded Speech: soft, minimal Mood: euthymic, bored Affect: blunted Thought process: poverty of thought Thought Content: poverty of content Cognition: Alert Insight: Poor Judgment: Poor Interventions PRN's used: None Therapeutic interventions: 1:1 assessment, encouraged meals and fluids, encouraged conversation and interaction with others, provided therapeutic communication w/active listening, medication administration/education and monitoring; Q15m safety checks. Restraints/seclusion/emergency medication: N/A Justification of Continued Inpatient Treatment: Pt LPS conserved and awaiting placement. Requires medication management, and a safe and supportive environment to prevent readmission and gain safe placement.
[2020-02-11 19:54] VITALS: BP 129/85
[2020-02-11] MEDS: divalproex sod 250mg ER (24-hour) tablet PO SCH (20:20)
[2020-02-11] MEDS: olanzapine 10mg tablet PO SCH (20:20)
--- NOTE | 2020-02-12 00:13 | NUR ---
Nursing Progress Note: Legal hold: LPS Client on involuntary status for GD Report received from EDINSON Ventura with use of SBAR. Why are they here: Patient is LPS conserved and was recently discharged to [facility] on 01/08/20. Patient AWOLD several times from this facility. Patient does not appear to be cognizant of the quarantine rules and insisted he comes back. Patient has been having behavioral issues, he was seen over the weekend destroying property while in the community and another incident pt. snuck out of his room and peers reported him drunk. While in ER pt. presented as disorganized, unable to form sentences, drooling and spitting on the floor. Assessment: What has happened this shift: Pt was visible in the unit, he was observed socializing with select peers. States he feels really bored with nothing to do. Swelling on his left teeth has gone down and does not c/o pain. Pt was cooperative during 1:1 physical assessment and took all his HS meds. Denies any A/VH, S/I, H/I, and states he is feeling a little bit of anxiety but not too bad, does not require medication. He was not observed responding to internal stimuli and did not make any delusional statements. He retired to bed after he received his meds. S/I, H/I: Denies A/VH: Denies Sleep: Currently sleeping, see sleep assessment for total hours ADL's: Independent Group attendance: No groups during edge inker heels Were med's taken: Yes Any med S/E: None reported nor observed Mental Status Exam Appearance: Appropriate, wearing personal clothing, well groomed Eye contact: Good, direct Behavior: Cooperative, calm, pacing, socializing with select peers Speech: Normal rate/rhythm, quiet tone, minimal Mood: Bored, tired Affect: Flat Thought process: Circumstantial Thought Content: Feeling bored, requesting coffee, tea and snacks Cognition: Alert and oriented x3 Insight: Poor Judgment: Poor Interventions PRN's used: None Therapeutic interventions: 1:1 assessment, encouraged meals and fluids, encouraged conversation and interaction with others, provided therapeutic communication w/active listening, medication administration/education and monitoring; Q15m safety checks. Restraints/seclusion/emergency medication: N/A Justification of Continued Inpatient Treatment: Pt LPS conserved and awaiting placement. Requires medication management, and a safe and supportive environment to prevent readmission and gain safe placement.
[2020-02-12 07:33] VITALS: BP 97/53
[2020-02-12] MEDS: propranolol 10mg tablet PO SCH ×3 (08:00→20:20)
[2020-02-12] MEDS: lactose-reduced food (Ensure Enlive) - 237ml bottle PO SCH ×3 (08:00→17:30)
[2020-02-12] MEDS: busPIRone 15mg tablet PO SCH ×2 (08:11→20:20)
[2020-02-12] MEDS: amoxicillin 250mg capsule PO SCH ×3 (08:12→20:20)
[2020-02-12] MEDS: lactobacillus rhamnosus 10,000 MMU CELLS/CAPSULE PO SCH ×2 (08:12→20:20)
[2020-02-12] MEDS: benztropine 1mg tablet PO SCH ×2 (08:12→20:20)
--- NOTE | 2020-02-12 13:09 | NUR ---
NURSING PROGRESS NOTE Legal hold: LPS Client on involuntary status for GD Report received from MARLO Ordaz with use of SBAR Why are they here: Patient is LPS conserved and was recently discharged to [facility] on 01/08/20. Patient AWOLD several times from this facility. Patient does not appear to be cognizant of the quarantine rules and insisted he comes back. Patient has been having behavioral issues, he was seen over the weekend destroying property while in the community and another incident pt. snuck out of his room and peers reported him drunk. While in ER pt. presented as disorganized, unable to form sentences, drooling and spitting on the floor. Assessment: What has happened this shift: Refuses breakfast, sleeps until late morning but does take morning medications. Up for lunch and walking in hallway, drinking coffee, otherwise isolates to room. Denies hallucinations and does not appear to be RIS. States he feels "OK" and is pleasant and cooperative. S/I, H/I: Denies A/VH: Denies Sleep: napped frequently ADL's: Independent Group attendance: No Were med's taken: Yes Any med S/E: None reported nor observed Mental Status Exam Appearance: disheveled Eye contact: fair Behavior: Guarded Speech: soft, minimal Mood: euthymic, bored Affect: blunted Thought process: poverty of thought Thought Content: poverty of content Cognition: Alert Insight: Poor Judgment: Poor Interventions PRN's used: None Therapeutic interventions: 1:1 assessment, encouraged meals and fluids, encouraged conversation and interaction with others, provided therapeutic communication w/active listening, medication administration/education and monitoring; Q15m safety checks. Restraints/seclusion/emergency medication: N/A Justification of Continued Inpatient Treatment: Pt LPS conserved and awaiting placement. Requires medication management, and a safe and supportive environment to prevent readmission and gain safe placement.
[2020-02-12 19:33] VITALS: BP 112/63
[2020-02-12] MEDS: olanzapine 10mg tablet PO SCH (20:20)
[2020-02-12] MEDS: divalproex sod 250mg ER (24-hour) tablet PO SCH (20:20)
--- NOTE | 2020-02-13 00:53 | NUR ---
Nursing Progress Note: Legal hold: LPS Client on involuntary status for GD Report received from EDINSON Ventura with use of SBAR. Why are they here: Patient is LPS conserved and was recently discharged to [facility] on 01/08/20. Patient AWOLD several times from this facility. Patient does not appear to be cognizant of the quarantine rules and insisted he comes back. Patient has been having behavioral issues, he was seen over the weekend destroying property while in the community and another incident pt. snuck out of his room and peers reported him drunk. While in ER pt. presented as disorganized, unable to form sentences, drooling and spitting on the floor. Assessment: What has happened this shift: Pt was in his room during shift change. States that he is doing good but he presents as guarded and withdrawn. He was cooperative during 1:1 physical assessment and took all his HS medications. Denies any A/VH, and again states that he is just really bored here. He requested to take a shower and returned to his room where he spent most of the evening just sitting in his bed rocking back and forth with the lights off. He did later on came out for snack but retired to bed shortly after. Was not observed out of his room the rest of the evening. S/I, H/I: Denies A/VH: Denies, not observed responding to internal stimuli Sleep: Currently sleeping, see sleep assessment for total hours ADL's: Independent Group attendance: No groups during cart driver Were med's taken: Yes Any med S/E: None reported nor observed Mental Status Exam Appearance: Appropriate, wearing personal clothing, well groomed, took a shower Eye contact: Good, direct Behavior: Cooperative, isolative, withdrawn Speech: Normal rate/rhythm, quiet tone, minimal Mood: Bored, appears depressed Affect: Flat Thought process: Circumstantial Thought Content: Feeling bored, requesting coffee, tea and snacks Cognition: Alert and oriented x3 Insight: Poor Judgment: Poor Interventions PRN's used: None Therapeutic interventions: 1:1 assessment, encouraged meals and fluids, encouraged conversation and interaction with others, provided therapeutic communication w/active listening, medication administration/education and monitoring; Q15m safety checks. Restraints/seclusion/emergency medication: N/A Justification of Continued Inpatient Treatment: Pt LPS conserved and awaiting placement. Requires medication management, and a safe and supportive environment to prevent readmission and gain safe placement.
[2020-02-13 08:00] VITALS: BP 96/60
[2020-02-13] MEDS: propranolol 10mg tablet PO SCH ×3 (08:00→20:27)
[2020-02-13] MEDS: amoxicillin 250mg capsule PO SCH ×3 (08:16→20:27)
[2020-02-13] MEDS: benztropine 1mg tablet PO SCH ×2 (08:16→20:28)
[2020-02-13] MEDS: lactobacillus rhamnosus 10,000 MMU CELLS/CAPSULE PO SCH ×2 (08:16→20:27)
[2020-02-13] MEDS: busPIRone 15mg tablet PO SCH ×2 (08:16→20:27)
[2020-02-13] MEDS: lactose-reduced food (Ensure Enlive) - 237ml bottle PO SCH ×3 (08:17→17:48)
--- NOTE | 2020-02-13 13:46 | NUR ---
NURSING PROGRESS NOTE Legal hold: LPS Client on involuntary status for GD Report received from MARLO Ordaz with use of SBAR Why are they here: Patient is LPS conserved and was recently discharged to [facility] on 01/08/20. Patient AWOLD several times from this facility. Patient does not appear to be cognizant of the quarantine rules and insisted he comes back. Patient has been having behavioral issues, he was seen over the weekend destroying property while in the community and another incident pt. snuck out of his room and peers reported him drunk. While in ER pt. presented as disorganized, unable to form sentences, drooling and spitting on the floor. Assessment: What has happened this shift: Refuses breakfast, sleeps until late morning but does take morning medications. Up for lunch and seen on unit briefly, otherwise isolates to room. Denies hallucinations and does not appear to be RIS. Does not want to engage with nurse or others today, spends day sleeping. States "nothing is different today." S/I, H/I: Denies A/VH: Denies Sleep: napped frequently ADL's: Independent Group attendance: No Were med's taken: Yes Any med S/E: None reported nor observed Mental Status Exam Appearance: disheveled Eye contact: fair Behavior: Guarded Speech: soft, minimal Mood: euthymic, bored Affect: blunted Thought process: poverty of thought Thought Content: poverty of content Cognition: Alert Insight: Poor Judgment: Poor Interventions PRN's used: None Therapeutic interventions: 1:1 assessment, encouraged meals and fluids, encouraged conversation and interaction with others, provided therapeutic communication w/active listening, medication administration/education and monitoring; Q15m safety checks. Restraints/seclusion/emergency medication: N/A Justification of Continued Inpatient Treatment: Pt LPS conserved and awaiting placement. Requires medication management, and a safe and supportive environment to prevent readmission and gain safe placement.
[2020-02-13] MEDS ORDERED: paliperidone palmitate inj 234 MG/1.5 ML SYRINGE IM ONE (18:00)
[2020-02-13 20:00] VITALS: BP 126/73
[2020-02-13] MEDS: olanzapine 10mg tablet PO SCH (20:27)
[2020-02-13] MEDS: divalproex sod 250mg ER (24-hour) tablet PO SCH (20:28)
--- NOTE | 2020-02-14 01:18 | NUR ---
Nursing Progress Note: Legal hold: LPS Client on involuntary status for GD Report received from MARLO Ventura with use of SBAR. Why are they here: Patient is LPS conserved and was recently discharged to [facility] on 01/08/20. Patient AWOLD several times from this facility. Patient does not appear to be cognizant of the quarantine rules and insisted he comes back. Patient has been having behavioral issues, he was seen over the weekend destroying property while in the community and another incident pt. snuck out of his room and peers reported him drunk. While in ER pt. presented as disorganized, unable to form sentences, drooling and spitting on the floor. Assessment: What has happened this shift: Pt primarily isolated to his room this shift, but was observed to attend snack and pace the halls a few times. Pt cooperative with assessment but denied all symptoms, stating he is bored. Requested candy several times this evening but otherwise no other requests. Pt medication complaint and went to sleep shortly after administration. S/I, H/I: Denies A/VH: Denies Sleep: See sleep assessment ADL's: Independent Group attendance: No groups this shift Were med's taken: Yes Any med S/E: None reported nor observed Mental Status Exam Appearance: Clean, wearing personal clothing Eye contact: Good Behavior: Withdrawn, guarded, isolative, quiet Speech: Normal rate, quiet Mood: "Good" Affect: Blunted with an occasional smile Thought process: Poverty of speech Thought Content: wanting snacks and tea Cognition: Alert and oriented x3 Insight: Poor Judgment: Fair Interventions PRN's used: None Therapeutic interventions: 1:1 assessment, encouraged meals and fluids, encouraged conversation and interaction with others, provided therapeutic communication w/active listening, medication administration/education and monitoring; Q15m safety checks. Restraints/seclusion/emergency medication: N/A Justification of Continued Inpatient Treatment: Pt LPS conserved, accepted to [place], and awaiting discharge date dependent on bed availability.
[2020-02-14 08:00] VITALS: BP 113/68
[2020-02-14] MEDS: lactose-reduced food (Ensure Enlive) - 237ml bottle PO SCH ×3 (08:00→18:00)
[2020-02-14] MEDS: amoxicillin 250mg capsule PO SCH ×3 (08:45→20:06)
[2020-02-14] MEDS: lactobacillus rhamnosus 10,000 MMU CELLS/CAPSULE PO SCH ×2 (08:45→20:03)
[2020-02-14] MEDS: propranolol 10mg tablet PO SCH ×3 (08:45→20:03)
[2020-02-14] MEDS: busPIRone 15mg tablet PO SCH ×2 (08:45→20:03)
[2020-02-14] MEDS: benztropine 1mg tablet PO SCH ×2 (08:45→20:03)
[2020-02-14 12:50] VITALS: BP 116/64
[2020-02-14] MEDS: busPIRone 5mg tablet PO SCH (12:52)
--- NOTE | 2020-02-14 13:00 | NUR ---
NURSING PROGRESS NOTE Legal hold: LPS Client on involuntary status for GD Report received from MARLO Ordaz with use of SBAR Why are they here: Patient is LPS conserved and was recently discharged to [facility] on 01/08/20. Patient AWOLD several times from this facility. Patient does not appear to be cognizant of the quarantine rules and insisted he comes back. Patient has been having behavioral issues, he was seen over the weekend destroying property while in the community and another incident pt. snuck out of his room and peers reported him drunk. While in ER pt. presented as disorganized, unable to form sentences, drooling and spitting on the floor. Assessment: What has happened this shift: Received patient sleeping at shift change, no distress noted. Pt delined breakfast, states he will eat lunch. Pt is visible on unit later in the day. Pt is coopertive with care and compliant with medications. Patient isolates to room and is obseved intermittenly interacting with his roommate Patient denies SI/HI/AH/VH. Pt up for lunch then returns to his room. When asked how he is doing "good." Pt presents as bored or depressed. Pt does not endorse depression. Pt up out of room a couple times in the afternoon, once for 1500 snack. S/I, H/I: Denies both A/VH: Denies Sleep: 7.75 hrs per Sleep Assessment. Napped frequently. ADL's: Independent Group attendance: No Were med's taken: Yes, without hesitation. Any med S/E: None reported nor observed Mental Status Exam Appearance: Disheveled from laying in bed. Wearing personal attire. Eye contact: Fair Behavior: Guarded, isolates to his bed. Up for lunch and PM snack. Speech: Minimal, soft. latent Mood: Euthymic, bored Affect: Flat Thought process: Poverty of thought Thought Content: Poverty of content Cognition: A&O x3 Insight: Poor Judgment: Poor Interventions PRN's used: None Therapeutic interventions: 1:1 assessment, encouraged meals and fluids, encouraged conversation and interaction with others, provided therapeutic communication w/active listening, medication administration/education and monitoring; Q15m safety checks. Restraints/seclusion/emergency medication: N/A Justification of Continued Inpatient Treatment: Pt LPS conserved and awaiting placement. Requires medication management, and a safe and supportive environment to prevent readmission and gain safe placement.
--- NOTE | 2020-02-14 16:39 | NUR ---
F/u (02/13): Pt PO declining past 7 days mostly refusing meals at this time down from 75-100% fluctuating PO prior. Drinking 100% ensure enlives. DX tooth infection likely impacting PO meals in addition to DX. LBM 02/12. Will continue to monitor. Rec: 1. continue regular diet; encourage PO 2. Ensure Enlive TIDWM per MD 3. bowel care per rx 4. wt per rx Addendum: 02/14/20 at [address] Amended: Links added.
[2020-02-14 19:00] VITALS: BP 107/56
[2020-02-14] MEDS: olanzapine 10mg tablet PO SCH (20:03)
[2020-02-14] MEDS: traZODone 50mg tablet PO PRN (20:03)
[2020-02-14] MEDS: divalproex sod 250mg ER (24-hour) tablet PO SCH (20:03)
--- NOTE | 2020-02-15 03:12 | NUR ---
Nursing Progress Note: Legal hold: LPS Client on involuntary status for GD Report received from MARLO Ventura with use of SBAR. Why are they here: Patient is LPS conserved and was recently discharged to [facility] on 01/08/20. Patient AWOLD several times from this facility. Patient does not appear to be cognizant of the quarantine rules and insisted he comes back. Patient has been having behavioral issues, he was seen over the weekend destroying property while in the community and another incident pt. snuck out of his room and peers reported him drunk. While in ER pt. presented as disorganized, unable to form sentences, drooling and spitting on the floor. Assessment: What has happened this shift: Pt less talkative today and continues to isolate to room and exit only for snack. He is minimal in responses to assessment, stating, "I am the same. Bored." Pt endorses anxiety 10/27 but declined a prn when offerred stating "It is the same as I normally feel. I'm okay." Pt medication complaint and went to sleep shortly after administration. S/I, H/I: Denies A/VH: Denies Sleep: See sleep assessment ADL's: Independent Group attendance: No groups this shift Were med's taken: Yes, Propranolol held Any med S/E: None reported nor observed Mental Status Exam Appearance: Clean, wearing personal clothing Eye contact: Good Behavior: Withdrawn, isolative, quiet Speech: Normal rate, quiet Mood: "Good" Affect: Blunted with an occasional smile Thought process: Poverty of speech Thought Content: being bored Cognition: Alert and oriented x3 Insight: Poor Judgment: Fair Interventions PRN's used: Trazodone 50mg Therapeutic interventions: 1:1 assessment, encouraged meals and fluids, encouraged conversation and interaction with others, provided therapeutic communication w/active listening, medication administration/education and monitoring; Q15m safety checks. Restraints/seclusion/emergency medication: N/A Justification of Continued Inpatient Treatment: Pt LPS conserved, accepted to [place], and awaiting discharge date dependent on bed availability.
[2020-02-15 07:30] VITALS: BP 103/46
[2020-02-15] MEDS: lactose-reduced food (Ensure Enlive) - 237ml bottle PO SCH ×3 (08:00→18:06)
[2020-02-15] MEDS: lactobacillus rhamnosus 10,000 MMU CELLS/CAPSULE PO SCH ×2 (08:12→20:06)
[2020-02-15] MEDS: amoxicillin 250mg capsule PO SCH ×3 (08:14→20:07)
[2020-02-15] MEDS: busPIRone 15mg tablet PO SCH ×2 (08:14→20:06)
[2020-02-15] MEDS: benztropine 1mg tablet PO SCH ×2 (08:14→20:06)
[2020-02-15] MEDS: propranolol 10mg tablet PO SCH ×3 (08:14→20:07)
[2020-02-15] MEDS: busPIRone 5mg tablet PO SCH (12:22)
--- NOTE | 2020-02-15 13:29 | NUR ---
Placement Presenting Issues: Pt's been accepted for placement @ [facility] but still has no d/c date. Interventions: SS had t/c with [facility]'s office to f/u on pt's dcp. Per t/c Shaina Cassidy is waiting for an iso bed as pt will be in quarantine for 14-days when he arrives @ their facility. Plan: SS will continue to monitor dcp. Analisa Eagle LCSW Addendum: 02/15/20 at 1342 by Analisa Eagle Amended: Links added.
--- NOTE | 2020-02-15 17:40 | NUR ---
NURSING PROGRESS NOTE Legal hold: LPS Client on involuntary status for GD Report received from MARLO Ordaz with use of SBAR Why are they here: Patient is LPS conserved and was recently discharged to [facility] on 01/08/20. Patient AWOLD several times from this facility. Patient does not appear to be cognizant of the quarantine rules and insisted he comes back. Patient has been having behavioral issues, he was seen over the weekend destroying property while in the community and another incident pt. snuck out of his room and peers reported him drunk. While in ER pt. presented as disorganized, unable to form sentences, drooling and spitting on the floor. Assessment: What has happened this shift: Received patient sleeping at shift change. Pt. refused breakfast and instead stayed in his bed. Pt. took his medications and went back to sleep. Pt. denies SI/HI, A/V hallucinations, however pt. has delayed responses, possibly responding to internal stimuli. Pt. reports he's awaiting to see if he will go to [facility]. When asked how he feels about it, pt. states, "I want to go to [facility]". Pt. ate lunch in the community room. Per SS notes pt. has been accepted to [facility] but there is no acceptance date. In the evening pt. seen pacing the halls and looking at wall art. Pt. is not social and when asked, "how are you yolanda?" Pt. does not reply. Dental appt 02/17 for extraction.Started AXB on 02/08 for tooth abcess. S/I, H/I: Denies A/VH: Denies Sleep: Pt. napped most of the day. ADL's: Independent Group attendance: No Were med's taken: Yes Any med S/E: Denies Mental Status Exam Appearance: Disheveled. Eye contact: Fair Behavior: Withdrawn Speech: Minimal, soft, delayed Mood: Anhedonic. Affect: Flat Thought process: Poverty of thought, thought blocking. Thought Content: Not excited about going to [facility]. Would prefer to go to [facility]. Cognition: A&O x3 Insight: Poor Judgment: Poor Interventions PRN's used: None Therapeutic interventions: 1:1 assessment, encouraged meals and fluids, encouraged conversation and interaction with others, provided therapeutic communication w/active listening, medication administration/education and monitoring; Q15m safety checks. Restraints/seclusion/emergency medication: N/A Justification of Continued Inpatient Treatment: Pt LPS conserved and awaiting placement. Requires medication management, and a safe and supportive environment to prevent readmission and gain safe placement.
[2020-02-15 20:00] VITALS: BP 107/62
[2020-02-15] MEDS: divalproex sod 250mg ER (24-hour) tablet PO SCH (20:06)
[2020-02-15] MEDS: olanzapine 10mg tablet PO SCH (20:07)
--- NOTE | 2020-02-15 22:16 | NUR ---
Nursing Progress Note: Legal hold: LPS Client on involuntary status for GD Report received from MARLO Ventura with use of SBAR. Why are they here: Patient is LPS conserved and was recently discharged to [facility] on 01/08/20. Patient AWOLD several times from this facility. Patient does not appear to be cognizant of the quarantine rules and insisted he comes back. Patient has been having behavioral issues, he was seen over the weekend destroying property while in the community and another incident pt. snuck out of his room and peers reported him drunk. While in ER pt. presented as disorganized, unable to form sentences, drooling and spitting on the floor. Assessment: What has happened this shift: The patient was seen walking down the hallway after a shower. Attempted to talk to him, but he remained quiet. He responded when asked what he was thinking about, "I don't want to go to [facility]." He wouldn't say why. The patient isolated to his room, except for snack time. He was compliant with medications, then said, "good night" as I exited his room. S/I, H/I: Denies A/VH: Denies Sleep: See sleep assessment ADL's: Independent Group attendance: No groups this shift Were med's taken: Yes. Any med S/E: None reported nor observed Mental Status Exam Appearance: Clean, newly showered, wearing personal clothing Eye contact: Good Behavior: Withdrawn, isolative, quiet, guarded Speech: Normal rate, quiet Mood: "Good" Affect: Flat Thought process: Poverty of speech Thought Content: Being bored, and not wanting to go to [facility]. Cognition: Alert and oriented x3 Insight: Poor Judgment: Fair Interventions PRN's used: Therapeutic interventions: 1:1 assessment, encouraged meals and fluids, encouraged conversation and interaction with others, provided therapeutic communication w/active listening, medication administration/education and monitoring; Q15m safety checks. Restraints/seclusion/emergency medication: N/A Justification of Continued Inpatient Treatment: Pt LPS conserved, accepted to [facility], and awaiting discharge date dependent on bed availability.
[2020-02-16] MEDS: lactose-reduced food (Ensure Enlive) - 237ml bottle PO SCH ×3 (08:00→18:09)
[2020-02-16] MEDS: propranolol 10mg tablet PO SCH ×3 (08:00→20:05)
[2020-02-16] MEDS: busPIRone 15mg tablet PO SCH ×2 (08:19→20:05)
[2020-02-16] MEDS: amoxicillin 250mg capsule PO SCH ×3 (08:19→20:05)
[2020-02-16] MEDS: benztropine 1mg tablet PO SCH ×2 (08:19→20:05)
[2020-02-16] MEDS: lactobacillus rhamnosus 10,000 MMU CELLS/CAPSULE PO SCH ×2 (08:19→20:05)
[2020-02-16 08:25] VITALS: BP 98/62
--- NOTE | 2020-02-16 09:04 | NUR ---
[facility] Downtime [id number]
[2020-02-16] MEDS: busPIRone 5mg tablet PO SCH (12:36)
[2020-02-16 12:42] VITALS: BP 100/60
--- NOTE | 2020-02-16 14:43 | NUR ---
NURSING PROGRESS NOTE Legal hold: LPS Client on involuntary status for GD Report received from MARLO Serrano with use of SBAR Why are they here: Patient is LPS conserved and was recently discharged to [facility] on 01/08/20. Patient AWOLD several times from this facility. Patient does not appear to be cognizant of the quarantine rules and insisted he comes back. Patient has been having behavioral issues, he was seen over the weekend destroying property while in the community and another incident pt. snuck out of his room and peers reported him drunk. While in ER pt. presented as disorganized, unable to form sentences, drooling and spitting on the floor. Assessment: What has happened this shift: Received patient sleeping at shift change, no distress noted. Pt again refused breakfast and remained in bed. Pt takes all medications and is compliant with care. Pt remained in bed most of the shift, eats lunch and dinner in group room. When pt wakes he ambulated halls and requested a cup of coffee. Pt is semi-social with roommate. Pt shows little excitement of his acceptance to [place]. When asked if pt was going to miss us when he discharged pt responded "ya." Pt. denies SI/HI/AH/VH. Pt made no delusional statements and does to appear to be responding to internal stimuli. Dental appt 02/17 for extraction. Started AXB on 02/08 for tooth abscess. S/I, H/I: Denies both. A/VH: Denies both. Sleep: 7.75 hrs per Sleep Assessment. Pt. napped most of the day. ADL's: Independent Group attendance: Does not attend group. Were med's taken: Yes, without hesitation. Any med S/E: None reported or observed. Mental Status Exam Appearance: Disheveled. Hair messy and spiked from laying in bed. Wearing green unit scrubs. Eye contact: Fair Behavior: Withdrawn, isolates to bed. Bored Speech: Minimal, soft, delayed Mood: Euthymic Affect: Flat Thought process: Poverty of thought, thought blocking. Thought Content: Wants to sleep. Cognition: A&O x3 Insight: Poor Judgment: Poor Interventions PRN's used: None Therapeutic interventions: 1:1 assessment, encouraged meals and fluids, encouraged conversation and interaction with others, provided therapeutic communication w/active listening, medication administration/education and monitoring; Q15m safety checks. Restraints/seclusion/emergency medication: N/A Justification of Continued Inpatient Treatment: Patient LPS conserved and awaiting placement. Requires medication management, and a safe and supportive environment to prevent readmission and gain safe placement.
--- NOTE | 2020-02-16 14:46 | NUR ---
Next Jose De Jesus Hamm injection February 17
--- NOTE | 2020-02-16 15:33 | NUR ---
DCP Presenting Issues: Pt's been accepted at [facility], [facility] is requesting updated notes & COVID test prior to Saturday as tentative admit day for [facility] is Wednesday 05/24. [facility] also called and informed that transportation is tentatively scheduled for next 02/24. Interventions: SS had t/c with JOSE RN and requested for a Rapid COCVID test to facilitate d/c and transfer to [facility]. Plan: SS will monitor dcp. Analisa Eagle LCSW Addendum: 02/16/20 at 1536 by Analisa Eagle Amended: Links added.
[2020-02-16] MEDS: olanzapine 10mg tablet PO SCH (20:05)
[2020-02-16] MEDS: divalproex sod 250mg ER (24-hour) tablet PO SCH (20:05)
[2020-02-16 20:20] VITALS: BP 123/62
--- NOTE | 2020-02-16 22:35 | NUR ---
Nursing Progress Note: Legal hold: LPS Client on involuntary status for GD Report received from MARLO Ventura with use of SBAR. Why are they here: Patient is LPS conserved and was recently discharged to [facility] on 01/08/20. Patient AWOLD several times from this facility. Patient does not appear to be cognizant of the quarantine rules and insisted he comes back. Patient has been having behavioral issues, he was seen over the weekend destroying property while in the community and another incident pt. snuck out of his room and peers reported him drunk. While in ER pt. presented as disorganized, unable to form sentences, drooling and spitting on the floor. Assessment: What has happened this shift: The patient was seen at bedside for 1:1. Asked how he was doing, "I'm doing fine. I'm going to [place] on Saturday. I realize that it was my fault what happened at the other place. I may not like it, but I'll deal with it." He usually stays in his room until snack time, comes out to get it, then retreats to his room. The patient says that he doesn't feel comfortable around other people, so he isolates to his room where he feels safe. He continues to not speak unless spoken to, and it's usually minimal content. S/I, H/I: Denies A/VH: Denies Sleep: See sleep assessment ADL's: Independent Group attendance: No groups this shift Were med's taken: Yes. Any med S/E: None reported nor observed Mental Status Exam Appearance: Clean, hair combed, wearing personal clothing Eye contact: Good Behavior: Withdrawn, isolative, quiet, guarded Speech: Normal rate, quiet Mood: "Good" Affect: Flat Thought process: Poverty of speech Thought Content: Being bored, and not wanting to go to [place]. Cognition: Alert and oriented x3 Insight: Poor Judgment: Fair Interventions PRN's used: Therapeutic interventions: 1:1 assessment, encouraged meals and fluids, encouraged conversation and interaction with others, provided therapeutic communication w/active listening, medication administration/education and monitoring; Q15m safety checks. Restraints/seclusion/emergency medication: N/A Justification of Continued Inpatient Treatment: Pt LPS conserved, accepted to [place], and awaiting discharge date dependent on bed availability.
[2020-02-17 08:00] VITALS: BP 110/60
[2020-02-17] MEDS: lactose-reduced food (Ensure Enlive) - 237ml bottle PO SCH ×3 (08:00→17:27)
[2020-02-17] MEDS: lactobacillus rhamnosus 10,000 MMU CELLS/CAPSULE PO SCH ×2 (08:14→20:11)
[2020-02-17] MEDS: busPIRone 15mg tablet PO SCH ×2 (08:14→20:12)
[2020-02-17] MEDS: propranolol 10mg tablet PO SCH ×3 (08:14→20:11)
[2020-02-17] MEDS: benztropine 1mg tablet PO SCH ×2 (08:15→20:11)
[2020-02-17] MEDS: amoxicillin 250mg capsule PO SCH ×2 (08:15→12:44)
[2020-02-17] MEDS: busPIRone 5mg tablet PO SCH (12:44)
--- NOTE | 2020-02-17 14:44 | NUR ---
NURSING PROGRESS NOTE Legal hold: LPS Client on involuntary status for GD Report received from MARLO Serrano with use of SBAR Why are they here: Patient is LPS conserved and was recently discharged to [facility] on 01/08/20. Patient AWOLD several times from this facility. Patient does not appear to be cognizant of the quarantine rules and insisted he comes back. Patient has been having behavioral issues, he was seen over the weekend destroying property while in the community and another incident pt. snuck out of his room and peers reported him drunk. While in ER pt. presented as disorganized, unable to form sentences, drooling and spitting on the floor. Assessment: What has happened this shift: Skips breakfast, sleeps through until lunch. Up for lunch walked a bit in hallway and then back to isolate in room, lays in bed where he "feels best." Minimally answers questions. Not suicidal , no hallucinations. States "I'm OK." Accepted at [facility]. S/I, H/I: Denies A/VH: Denies Sleep: napped frequently ADL's: Independent Group attendance: No Were med's taken: Yes Any med S/E: None reported nor observed Mental Status Exam Appearance: disheveled Eye contact: poor Behavior: Guarded Speech: soft, minimal Mood: euthymic, bored Affect: blunted Thought process: poverty of thought Thought Content: poverty of content Cognition: Alert Insight: Poor Judgment: Poor Interventions PRN's used: None Therapeutic interventions: 1:1 assessment, encouraged meals and fluids, encouraged conversation and interaction with others, provided therapeutic communication w/active listening, medication administration/education and monitoring; Q15m safety checks. Restraints/seclusion/emergency medication: N/A Justification of Continued Inpatient Treatment: Pt LPS conserved and awaiting placement. Requires medication management, and a safe and supportive environment to prevent readmission and gain safe placement.
--- NOTE | 2020-02-17 17:03 | NUR ---
Placement Presenting Issues: Pt accepted at [facility] office called requesting updated notes & COVID test results. Interventions: SS printed out & faxed notes & lab results to [facility]. SS also had t/c with [facility]'s office, per t/c [facility] is coordinating transportation w/[facility]. Plan: SS will continue to monitor dcp & placement services. Analisa Eagle LCSW Addendum: 02/17/20 at 1707 by Analisa Eagle Amended: Links added.
[2020-02-17] MEDS: divalproex sod 250mg ER (24-hour) tablet PO SCH (20:11)
[2020-02-17] MEDS: olanzapine 10mg tablet PO SCH (20:11)
[2020-02-17 20:12] VITALS: BP 141/71
[2020-02-17] MEDS: traZODone 50mg tablet PO PRN (22:03)
--- NOTE | 2020-02-17 23:48 | NUR ---
Nursing Progress Note: Legal hold: LPS Client on involuntary status for GD Report received from MARLO Calix with use of SBAR. Why are they here: Patient is LPS conserved and was recently discharged to [facility] on 01/08/20. Patient AWOLD several times from this facility. Patient does not appear to be cognizant of the quarantine rules and insisted he comes back. Patient has been having behavioral issues, he was seen over the weekend destroying property while in the community and another incident pt. snuck out of his room and peers reported him drunk. While in ER pt. presented as disorganized, unable to form sentences, drooling and spitting on the floor. Assessment: What has happened this shift: The patient was seen at bedside for 1:1. He reports that he's looking forward to discharge. "I hope I can smoke there. I've been told 2 different stories. One person said that I can smoke there, and another said that I can't. Either way it should only be for a few months anyway." the patient was out for snack time, then back to his room. S/I, H/I: Denies A/VH: Denies Sleep: See sleep assessment ADL's: Independent Group attendance: No groups this shift Were med's taken: Yes. Any med S/E: None reported nor observed Mental Status Exam Appearance: Clean, nicely groomed, hair combed, wearing personal clothing Eye contact: Good Behavior: Withdrawn, isolative, quiet, guarded Speech: Normal rate, quiet Mood: "Good" Affect: Blunted Thought process: Poverty of speech Thought Content: Whether he can smoke at [place]. Cognition: Alert and oriented x3 Insight: Poor Judgment: Fair Interventions PRN's used: Trazodone x1 Therapeutic interventions: 1:1 assessment, encouraged meals and fluids, encouraged conversation and interaction with others, provided therapeutic communication w/active listening, medication administration/education and monitoring; Q15m safety checks. Restraints/seclusion/emergency medication: N/A Justification of Continued Inpatient Treatment: Pt LPS conserved, accepted to [place], and awaiting discharge date dependent on bed availability.
[2020-02-18 07:35] VITALS: BP 90/50
[2020-02-18] MEDS: benztropine 1mg tablet PO SCH ×2 (07:58→20:07)
[2020-02-18] MEDS: lactobacillus rhamnosus 10,000 MMU CELLS/CAPSULE PO SCH ×2 (07:58→20:06)
[2020-02-18] MEDS: busPIRone 15mg tablet PO SCH ×3 (07:58→20:07)
[2020-02-18] MEDS: lactose-reduced food (Ensure Enlive) - 237ml bottle PO SCH ×3 (08:00→17:10)
[2020-02-18] MEDS: propranolol 10mg tablet PO SCH ×3 (08:00→20:06)
--- NOTE | 2020-02-18 13:16 | NUR ---
NURSING PROGRESS NOTE Legal hold: LPS Client on involuntary status for GD Report received from MARLO Serrano with use of SBAR Why are they here: Patient is LPS conserved and was recently discharged to [facility] on 01/08/20. Patient AWOLD several times from this facility. Patient does not appear to be cognizant of the quarantine rules and insisted he comes back. Patient has been having behavioral issues, he was seen over the weekend destroying property while in the community and another incident pt. snuck out of his room and peers reported him drunk. While in ER pt. presented as disorganized, unable to form sentences, drooling and spitting on the floor. Assessment: What has happened this shift: The patient slept through breakfast as usual, isolated to room until lunchtime. Up for lunch and eating 100%. Took meds as prescribed. States he is "OK." No suicidal thoughts or hallucinations. Interacts with this policy writer when informing him of plan for the day as he will be going to the dentist and leaving at 1315 with [facility]. He understands he will be receiving his second Invega shot today and is agreeable to getting a flu shot before he discharges. S/I, H/I: Denies A/VH: Denies Sleep: napped frequently ADL's: Independent Group attendance: No Were med's taken: Yes Any med S/E: None reported nor observed Mental Status Exam Appearance: disheveled Eye contact: poor Behavior: Guarded Speech: soft, minimal Mood: euthymic, bored Affect: blunted Thought process: poverty of thought Thought Content: poverty of content Cognition: Alert Insight: Poor Judgment: Poor Interventions PRN's used: None Therapeutic interventions: 1:1 assessment, encouraged meals and fluids, encouraged conversation and interaction with others, provided therapeutic communication w/active listening, medication administration/education and monitoring; Q15m safety checks. Restraints/seclusion/emergency medication: N/A Justification of Continued Inpatient Treatment: Pt LPS conserved and awaiting placement. Requires medication management, and a safe and supportive environment to prevent readmission and gain safe placement.
[2020-02-18] MEDS ORDERED: FLU VACC QS2020-21(6MOS UP)/PF 60 MCG/0.5 ML SYRINGE IMVAC ONE (13:25)
[2020-02-18 20:03] VITALS: BP 113/66
[2020-02-18] MEDS: traZODone 50mg tablet PO PRN (20:07)
[2020-02-18] MEDS: olanzapine 10mg tablet PO SCH (20:07)
[2020-02-18] MEDS: divalproex sod 250mg ER (24-hour) tablet PO SCH (20:07)
[2020-02-18] MEDS ORDERED: HYDROcodone/acetaminophen 5mg/325mg tablet PO PRN (20:25)
--- NOTE | 2020-02-18 23:57 | NUR ---
NURSING PROGRESS NOTE Legal hold: LPS Client on involuntary status for GD Report received from MARLO Cedeno with use of SBAR Why are they here: Patient is LPS conserved and was recently discharged to [facility] on 01/08/20. Patient AWOLD several times from this facility. Patient does not appear to be cognizant of the quarantine rules and insisted he comes back. Patient has been having behavioral issues, he was seen over the weekend destroying property while in the community and another incident pt. snuck out of his room and peers reported him drunk. While in ER pt. presented as disorganized, unable to form sentences, drooling and spitting on the floor. Assessment: What has happened this shift: Pt was in the hallway at change of shift, pt is asking for a snack and states he is having "no pain at all." Pt was encouraged to tell me if he was feeling any pain and informed we have prns available if he has any pain. Pt isolated to his room, came out for evening snack and returned to his room. Pt took evening meds and went to bed. S/I, H/I: Denies A/VH: Denies Sleep: see sleep hours naps frequently ADL's: Independent Group attendance: No Were med's taken: Yes Any med S/E: None reported nor observed Mental Status Exam Appearance: disheveled Eye contact: poor Behavior: Guarded Speech: soft, minimal Mood: euthymic, bored Affect: blunted Thought process: poverty of thought Thought Content: asking for snacks Cognition: Alert Insight: Poor Judgment: Poor Interventions PRN's used: None Therapeutic interventions: 1:1 assessment, encouraged meals and fluids, encouraged conversation and interaction with others, provided therapeutic communication w/active listening, medication administration/education and monitoring; Q15m safety checks. Restraints/seclusion/emergency medication: N/A Justification of Continued Inpatient Treatment: Pt LPS conserved and awaiting placement. Requires medication management, and a safe and supportive environment to prevent readmission and gain safe placement.
[2020-02-19 07:53] VITALS: BP 94/52
[2020-02-19] MEDS: propranolol 10mg tablet PO SCH ×3 (08:00→20:41)
[2020-02-19] MEDS: lactobacillus rhamnosus 10,000 MMU CELLS/CAPSULE PO SCH ×2 (08:00→20:41)
[2020-02-19] MEDS: lactose-reduced food (Ensure Enlive) - 237ml bottle PO SCH ×3 (08:01→17:24)
[2020-02-19] MEDS: benztropine 1mg tablet PO SCH ×2 (08:01→20:41)
[2020-02-19] MEDS: busPIRone 15mg tablet PO SCH ×3 (08:01→21:00)
--- NOTE | 2020-02-19 08:37 | NUR ---
Reassessment: Patient's PO intake continues to fluctuate, documented to have refused five meals since last RD assessment (02/13) however is with 75-100% PO intake when he does eat. Pt continues with 100% PO intake of Ensure Enlive TID with occasional refusals and is requesting snacks per RN notes. Pt likely meeting nutrient needs at this time. Wt fluctuates, most recent scaled weight is +2 kg since admit. LBM 02/17. No further nutrition intervention warranted at this time. Will continue to follow. Rec: 1. continue regular diet; encourage PO 2. Ensure Enlive TIDWM per MD 3. bowel care per rx 4. wt per rx Addendum: 02/19/20 at [address] Amended: Links added.
--- NOTE | 2020-02-19 11:06 | NUR ---
NURSING PROGRESS NOTE Legal hold: LPS Client on involuntary status for GD Report received from MARLO rOdaz with use of SBAR Why are they here: Patient is LPS conserved and was recently discharged to [facility] on 01/08/20. Patient AWOLD several times from this facility. Patient does not appear to be cognizant of the quarantine rules and insisted he comes back. Patient has been having behavioral issues, he was seen over the weekend destroying property while in the community and another incident pt. snuck out of his room and peers reported him drunk. While in ER pt. presented as disorganized, unable to form sentences, drooling and spitting on the floor. Assessment: What has happened this shift: Patient in normal routine today, skips breakfast, takes meds, up for lunch, walks around a bit, mostly isolates to room. Pleasant and cooperative. Denies pain from tooth extraction, some blood on pillow but nothing extreme. Knows how to use dental gauze. Denies suicidal thoughts and hallucinations. No delusional statements. Looking forward to placement. No other changes. S/I, H/I: Denies A/VH: Denies Sleep: napped frequently ADL's: Independent Group attendance: No Were med's taken: Yes Any med S/E: None reported nor observed Mental Status Exam Appearance: disheveled Eye contact: poor Behavior: Guarded Speech: soft, minimal Mood: euthymic, bored Affect: blunted Thought process: poverty of thought Thought Content: poverty of content Cognition: Alert Insight: Poor Judgment: Poor Interventions PRN's used: None Therapeutic interventions: 1:1 assessment, encouraged meals and fluids, encouraged conversation and interaction with others, provided therapeutic communication w/active listening, medication administration/education and monitoring; Q15m safety checks. Restraints/seclusion/emergency medication: N/A Justification of Continued Inpatient Treatment: Pt LPS conserved and awaiting placement. Requires medication management, and a safe and supportive environment to prevent readmission and gain safe placement.
--- NOTE | 2020-02-19 17:24 | NUR ---
DCP/Placement Prersenting Issues: [facility] PAIGE sent e-mail re dcp for pt and transportation to [facility]. Interventions: SS informed RN of dcp/transportation plan: pt to d/c from [facility] & be picked up by [facility] on Wednesday 02/21 @ 9:30 AM. Pt will need at least 2 weeks of meds to go with him. had requested attending physician send meds order to [facility] pharmacy on , SS to pickling grader over the weekend and deliver to [facility] Saturday morning. Plan: SS will pickling grader pt's meds over the weekend and deliver to [facility] on Saturday. Analisa Eagle LCSW Addendum: 02/19/20 at 1727 by Analisa Eagle Amended: Links added.
[2020-02-19 19:00] VITALS: BP 120/77
[2020-02-19] MEDS: olanzapine 10mg tablet PO SCH (20:41)
[2020-02-19] MEDS: divalproex sod 250mg ER (24-hour) tablet PO SCH (20:41)
--- NOTE | 2020-02-19 23:52 | NUR ---
NURSING PROGRESS NOTE Legal hold: LPS Client on involuntary status for GD Report received from MARLO Cedeno with use of SBAR Why are they here: Patient is LPS conserved and was recently discharged to [facility] on 01/08/20. Patient AWOLD several times from this facility. Patient does not appear to be cognizant of the quarantine rules and insisted he comes back. Patient has been having behavioral issues, he was seen over the weekend destroying property while in the community and another incident pt. snuck out of his room and peers reported him drunk. While in ER pt. presented as disorganized, unable to form sentences, drooling and spitting on the floor. Assessment: What has happened this shift: This patient presents as quiet and cooperative this shift. Patient is well oriented. He primarily isolates in his room, on a rare exception he ambulated the hallway. Patient did request and was given decaffeinated coffee, he expressed appreciation. Patient exhibits a normal gait, he stares at the floor when he walks. Patient tells this senior medical writer "I'm feeling aok." Patient minimizes any problems. Patient denies S/I, H/I, or any hallucinations. Patient is medication compliante. He did have a BM tonight. S/I, H/I: Denies. A/VH: Denies. Sleep: Naps frequently. ADL's: Independent. Group attendance: No group on nights. Were med's taken: Yes, medication compliant. Any med S/E: None reported nor observed. Mental Status Exam Appearance: Disheveled. Eye contact: Fair. Behavior: Guarded. Speech: Soft, regular rhythm and tone. Mood: Euthymic. Affect: Flat. Thought process: Poverty of thought. Thought Content: poverty of content. Cognition: Alert, aware of place and surroundings. Insight: Poor. Judgment: Poor. Interventions PRN's used: None Therapeutic interventions: 1:1 assessment, encouraged meals and fluids, encouraged conversation and interaction with others, provided therapeutic communication w/active listening, medication administration/education and monitoring; Q15m safety checks. Restraints/seclusion/emergency medication: N/A Justification of Continued Inpatient Treatment: Pt LPS conserved and awaiting placement. Requires medication management, and a safe and supportive environment to prevent readmission and gain safe placement.
[2020-02-20 07:30] VITALS: BP 98/53
[2020-02-20] MEDS: benztropine 1mg tablet PO SCH (07:50)
[2020-02-20] MEDS: lactobacillus rhamnosus 10,000 MMU CELLS/CAPSULE PO SCH ×2 (07:50→20:08)
[2020-02-20] MEDS: propranolol 10mg tablet PO SCH ×3 (07:50→20:10)
[2020-02-20] MEDS: busPIRone 15mg tablet PO SCH ×3 (07:50→20:08)
[2020-02-20] MEDS: lactose-reduced food (Ensure Enlive) - 237ml bottle PO SCH ×4 (07:51→17:59)
--- NOTE | 2020-02-20 12:45 | NUR ---
NURSING PROGRESS NOTE Legal hold: LPS Client on involuntary status for GD Report received from Jenifer Mccauley RN with use of SBAR Why are they here: Patient is LPS conserved and was recently discharged to [facility] on 01/08/20. Patient AWOLD several times from this facility. Patient does not appear to be cognizant of the quarantine rules and insisted he comes back. Patient has been having behavioral issues, he was seen over the weekend destroying property while in the community and another incident pt. snuck out of his room and peers reported him drunk. While in ER pt. presented as disorganized, unable to form sentences, drooling and spitting on the floor. Assessment: What has happened this shift: Patient has stayed mostly in his room during this shift. He is not very quick to answer questions, prefers to keep to himself. He does not appear as very enegetic, wanting to stay in bed most of the day. He took his medications without problems. States he does not hear voices, does not appear to be responding to internal stimuli. S/I, H/I: Denies. A/VH: Denies. Sleep: Sleeps most of the day ADL's: Independent. Group attendance: Did not attend group Were med's taken: Yes, med compliant Any med S/E: None reported nor observed. Mental Status Exam Appearance: Wearing green hospital scrubs, hair has not been brushed Eye contact: Fair. Behavior: Isolative Speech: Soft speech, normal rate and tone Mood: Euthymic. Affect: Flat. Thought process: destitute Thought Content: Evasive Cognition: alert and oriented Insight: Poor. Judgment: Poor, depressed. Interventions PRN's used: None Therapeutic interventions: 1:1 assessment, encouraged meals and fluids, encouraged conversation and interaction with others, provided therapeutic communication w/active listening, medication administration/education and monitoring; Q15m safety checks. Restraints/seclusion/emergency medication: N/A Justification of Continued Inpatient Treatment: Pt LPS conserved and awaiting placement. Requires medication management, and a safe and supportive environment to prevent readmission and gain safe placement.
[2020-02-20] MEDS ORDERED: TRAZ-251 PO (17:36)
[2020-02-20] MEDS ORDERED: OLAN10TA19 PO (17:36)
[2020-02-20] MEDS ORDERED: OLAN5TAB3 PO (17:36)
[2020-02-20] MEDS ORDERED: LACT-237 PO (17:36)
[2020-02-20] MEDS ORDERED: BENZ1TAB7 PO (17:36)
[2020-02-20] MEDS ORDERED: BUS15T PO (17:36)
[2020-02-20] MEDS ORDERED: DIVA250T8 PO (17:36)
[2020-02-20] MEDS ORDERED: PROP10TA10 PO (17:36)
[2020-02-20] MEDS: NICOTINE POLACRILEX 2 MG LOZENGE BC PRN (18:49)
[2020-02-20 19:00] VITALS: BP 118/70
[2020-02-20] MEDS: olanzapine 10mg tablet PO SCH (20:13)
[2020-02-20] MEDS: divalproex sod 250mg ER (24-hour) tablet PO SCH (20:13)
--- NOTE | 2020-02-21 01:36 | NUR ---
NURSING PROGRESS NOTE Legal hold: LPS Client on involuntary status for GD Report received from Jenifer Cedeno RN with use of SBAR Why are they here: Patient is LPS conserved and was recently discharged to [facility] on 01/08/20. Patient AWOLD several times from this facility. Patient does not appear to be cognizant of the quarantine rules and insisted he comes back. Patient has been having behavioral issues, he was seen over the weekend destroying property while in the community and another incident pt. snuck out of his room and peers reported him drunk. While in ER pt. presented as disorganized, unable to form sentences, drooling and spitting on the floor. Assessment: What has happened this shift: Patient demonstrates a quiet demeanor. He is up for snacks but mostly self isolates in his room. Patient speaks quietly, sometimes mumbling. Patient expresses concern about being transferred to [facility]. When being interviewed by this comic book writer the patient sits with his arms folded and makes fair eye contact. The patient denies S/I, H/I, or any hallucinations. S/I, H/I: Denies. A/VH: Denies. Sleep: Sleeping well, will tally in am. ADL's: Independent. Group attendance: No group on security shift manager. Were med's taken: Yes, medication compliant Any med S/E: None reported nor observed. Mental Status Exam Appearance: Wearing green hospital scrubs, mildly disheveled look. Eye contact: Fair. Behavior: Isolative. Speech: Soft speech, normal rate and tone. Mood: Euthymic. Affect: Flat. Thought process: Destitute. Thought Content: Evasive. Cognition: Alert and oriented. Insight: Poor. Judgment: Poor.. Interventions PRN's used: None. Therapeutic interventions: 1:1 assessment, encouraged meals and fluids, encouraged conversation and interaction with others, provided therapeutic communication w/active listening, medication administration/education and monitoring; Q15m safety checks. Restraints/seclusion/emergency medication: N/A Justification of Continued Inpatient Treatment: Pt LPS conserved and awaiting placement. Requires medication management, and a safe and supportive environment to prevent readmission and gain safe placement.
[2020-02-21 07:40] VITALS: BP 95/55
[2020-02-21] MEDS: lactose-reduced food (Ensure Enlive) - 237ml bottle PO SCH ×3 (08:00→18:55)
[2020-02-21] MEDS: busPIRone 15mg tablet PO SCH ×3 (08:12→20:30)
[2020-02-21] MEDS: lactobacillus rhamnosus 10,000 MMU CELLS/CAPSULE PO SCH (08:12)
--- NOTE | 2020-02-21 16:58 | NUR ---
NURSING PROGRESS NOTE: JOHANNA Legal hold: LPS Client on involuntary status for GD Report received from Jenifer Mccauley RN with use of SBAR Why are they here: Patient is LPS conserved and was recently discharged to [facility] on 01/08/20. Patient AWOLD several times from this facility. Patient does not appear to be cognizant of the quarantine rules and insisted he comes back. Patient has been having behavioral issues, he was seen over the weekend destroying property while in the community and another incident pt. snuck out of his room and peers reported him drunk. While in ER pt. presented as disorganized, unable to form sentences, drooling and spitting on the floor. Assessment: What has happened this shift: Pt declined breakfast this morning, even with encouragement. Responses to assessment questions were minimal; pt denied all symptoms and stated voices and mood are the same. He slept most of the morning, rising to eat lunch. Pt seems indifferent about discharge tomorrow. S/I, H/I: Denies. A/VH: Denies the same, not observed to be responding to IS Sleep: Sleeps most of the day ADL's: Independent Group attendance: No group today. Were med's taken: Yes, med compliant Any med S/E: None reported nor observed Mental Status Exam Appearance: Wearing green hospital scrubs, hair has not been brushed; disheveled Eye contact: Fair Behavior: Isolative Speech: Soft speech, normal rate and tone Mood: Same, Pt appears depressed Affect: Flat Thought process: Linear Thought Content: Poverty of thought Cognition: A&Ox4 Insight: Poor Judgment: Poor Interventions PRNs used: None Therapeutic interventions: 1:1 assessment, encouraged meals and fluids, encouraged conversation and interaction with others, provided therapeutic communication w/active listening, medication administration/education and monitoring; Q15m safety checks. Restraints/seclusion/emergency medication: N/A Justification of Continued Inpatient Treatment: Pt LPS conserved and discharging tomorrow morning at 0930 to [place].
[2020-02-21 20:00] VITALS: BP 107/62
[2020-02-21] MEDS ORDERED: olanzapine 10mg tablet PO ONE (21:00)
[2020-02-21] MEDS ORDERED: divalproex sod 250mg ER (24-hour) tablet PO ONE (21:00)
--- NOTE | 2020-02-22 01:22 | NUR ---
NURSING PROGRESS NOTE Legal hold: LPS Client on involuntary status for GD Report received from MARLO Ventura with use of SBAR Why are they here: Patient is LPS conserved and was recently discharged to [facility] on 01/08/20. Patient AWOLD several times from this facility. Patient does not appear to be cognizant of the quarantine rules and insisted he comes back. Patient has been having behavioral issues, he was seen over the weekend destroying property while in the community and another incident pt. snuck out of his room and peers reported him drunk. While in ER pt. presented as disorganized, unable to form sentences, drooling and spitting on the floor. Assessment: What has happened this shift: Pt up on unit at start of shift. Spent some time in group room watching TV. Does not interact very much with staff or other pts. Poor eye contact, answers questions with short one word answers, affect blunted. When asked, Pt did not express an opinion on his transfer to [facility]. He is pleasant and cooperative takes all medications. S/I, H/I: Denies. A/VH: Denies. Sleep: Asleep at this time ADL's: Independent. 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 Were med's taken: Yes, medication compliant Any med S/E: None reported nor observed. Mental Status Exam Appearance: Wearing green hospital scrubs, mildly disheveled look. Eye contact: Fair. Behavior: Isolative. Speech: Soft speech, normal rate and tone. Mood: Euthymic. Affect: Flat. Thought process: Tangential Thought Content: unclear Cognition: Alert and oriented. Insight: Poor. Judgment: Poor.. Interventions PRN's used: None. Therapeutic interventions: 1:1 assessment, encouraged meals and fluids, encouraged conversation and interaction with others, provided therapeutic communication w/active listening, medication administration/education and monitoring; Q15m safety checks. Restraints/seclusion/emergency medication: N/A Justification of Continued Inpatient Treatment: Pt LPS conserved and awaiting placement. Requires medication management, and a safe and supportive environment to prevent readmission and gain safe placement.
[2020-02-22 07:35] VITALS: BP 106/64
[2020-02-22] MEDS: lactose-reduced food (Ensure Enlive) - 237ml bottle PO SCH (08:00)
[2020-02-22] MEDS: busPIRone 15mg tablet PO SCH (08:04)
--- NOTE | 2020-02-22 09:46 | NUR ---
Discharge Pt was d/c'd & picked by [facility] and transported to [facility] referral closed. AB Montes De OcaW Addendum: 02/22/20 at 0947 by Analisa Eagle SS Amended: Links added.
== END 2020-02-22 09:40 | disposition short-term general hospital (02) | DRG 885 ==
LOC: ADULT MH 01-19 10:16
PROVIDERS: ADMIT Psychiatry & Neurology Psychiatry; ATTEND Psychiatry & Neurology Psychiatry
DX: F25.0 Schizoaffective disorder, bipolar type (principal); F41.9 Anxiety disorder, unspecified; F17.210 Nicotine dependence, cigarettes, uncomplicated; F15.90 Other stimulant use, unspecified, uncomplicated; Z23 Encounter for immunization; Z79.899 Other long term (current) drug therapy
CPT/HCPCS: 36415; 71045; 80061; 80164; 83036; 87081; 87635

== ENCOUNTER 2024-06-09 11:03 | Inpatient (IN) | payer MEDICARE, MEDICAID ==
[~2024-06-09] VITALS: Ht 172.7 cm; Wt 80.5 kg
[~2024-06-09 11:03] MED LIST changes: -BENZ1TAB7 PO; +BUS15T PO; -BUSP10TA10 PO; +COG1T PO; +DIVA250T8 PO; -DIVA500T9 PO; +ESCI-8 PO; +LURA20TA2 PO; +OLAN5TAB29 PO; -PALI234D IM; -TRAZ-251 PO
[2024-06-09 12:04] LABS: BASOPHILS # (AUTO) 0.1 X10'3 (0-0.2); BASOPHILS % (AUTO) 0.7 % (0-1); EOSINOPHILS # (AUTO) 0.1 X10'3 (0-0.9); EOSINOPHILS % (AUTO) 0.6 % (0-6); HEMATOCRIT 46.3 % (42.0-52.0); LYMPHOCYTES # (AUTO) 2.5 X10'3 (1.1-4.8); LYMPHOCYTES % (AUTO) 25.1 % (21-51); MEAN CORPUSCULAR HEMOGLOBIN 33.8 PG (27.0-31.0); MEAN CORPUSCULAR HGB CONC 34.6 g/dL (33.0-36.5); MEAN CORPUSCULAR VOLUME 97.7 FL (78-98); MEAN PLATELET VOLUME 7.8 FL (7.4-10.4); MONOCYTES # (AUTO) 0.9 X10'3 (0-0.9); MONOCYTES % (AUTO) 9.3 % (2-12); NEUTROPHILS # (AUTO) 6.3 X10'3 (1.8-7.7); NEUTROPHILS % (AUTO) 64.3 % (42-75); PLATELET COUNT 264 X10'3 (140-440); RED BLOOD COUNT 4.74 X10'6 (4.70-6.10); RED CELL DISTRIBUTION WIDTH 12.1 % (11.5-14.5); WHITE BLOOD COUNT 9.8 X10'3 (4.5-11.0)
[2024-06-09 12:15] LABS: ALBUMIN 4.2 G/DL (3.4-5.0); ANION GAP 8 (8-16); BLOOD UREA NITROGEN 13 MG/DL (7-18); BUN/CREATININE RATIO 15.3 (10.0-20.0); CALCIUM 9.2 MG/DL (8.5-10.1); CHLORIDE 102 MMOL/L (99-107); CREATININE 0.85 MG/DL (0.60-1.10); ETHANOL < 10 MG/DL (<10); GLUCOSE 97 MG/DL (70-104); POTASSIUM 3.8 MMOL/L (3.5-5.1); SODIUM 138 MMOL/L (135-145); THYROID STIMULATING HORMONE 0.37 ulU/ml (0.34-4.50); TOTAL CARBON DIOXIDE 28.1 MMOL/L (24-32); eCRCL 122 ML/MIN; eGFR > 90 ML/MIN
[2024-06-09 12:51] LABS: BILIRUBIN,URINE NEGATIVE (Neg); CLARITY,URINE CLEAR (Clear); COLOR,URINE YELLOW (Yellow); GLUCOSE, URINE NEGATIVE (Neg); KETONES,URINE NEGATIVE (Neg); LEUKOCYTE ESTERASE ,URINE SMALL (Neg); NITRITES, URINE NEGATIVE (Neg); OCCULT BLOOD,URINE TRACE-INTACT (Neg); PROTEIN,URINE NEGATIVE (Neg); UROBILINOGEN,URINE 0.2 E.U/dL (0.2-1.0)
[2024-06-09 13:10] LABS: UA COLLECTION TYPE CLN CATCH MIDSTREAM
[2024-06-09 13:17] LABS: URINE AMPHETAMINE SCREEN POSITIVE (Neg); URINE BARBITUATE SCREEN NEGATIVE (Neg); URINE BENZODIAZEPINES SCREEN NEGATIVE (Neg); URINE CANNABINOID SCREEN NEGATIVE (Neg); URINE COCAINE SCREEN NEGATIVE (Neg); URINE METHADONE SCREEN NEGATIVE (Neg); URINE OPIATE SCREEN NEGATIVE (Neg); URINE PHENCYCLIDINE SCREEN NEGATIVE (Neg)
[2024-06-09 13:20] LABS: BACTERIA,URINE NONE SEEN /HPF (Neg); RBC,URINE 0-2 /HPF (0-2); WBC,URINE 0-4 /HPF (0-4)
[2024-06-09 13:21] LABS: MUCUS STRANDS NONE SEEN /LPF (Neg); SQUAMOUS EPITHELIAL CELL,UR FEW /LPF (FEW)
[2024-06-09] MEDS ORDERED: TRAZ-256 PO (14:50)
[2024-06-09] MEDS ORDERED: DIVA500T9 PO (14:56)
[2024-06-09] MEDS ORDERED: BENZ1TAB78 PO (14:56)
[2024-06-09] MEDS ORDERED: BUSP10TA3 PO (14:56)
[2024-06-09] MEDS ORDERED: LURA40TA4 PO (14:56)
[2024-06-09] MEDS ORDERED: NICO-631 TD (14:56)
[2024-06-09] MEDS ORDERED: OLAN20TA19 PO (14:56)
[2024-06-09] MEDS ORDERED: BUSP15TA7 PO (14:56)
[2024-06-09] MEDS ORDERED: ESCI-8 PO (15:19)
[2024-06-09] MEDS ORDERED: acetaminophen 325mg tablet PO PRN (20:50)
[2024-06-09] MEDS ORDERED: mag hydrox/Alum hydrox/simeth 30ml oral suspension PO PRN (20:50)
[2024-06-09] MEDS ORDERED: magnesium hydroxide 30ml (MOM) UD suspension PO PRN (20:50)
[2024-06-09 21:10] VITALS: RESP 18; O2SAT 100
[2024-06-09 21:14] VITALS: BP 102/75; PULSE 87; RESP 18; TEMP 98.2; O2SAT 100
[2024-06-09] MEDS: olanzapine 10mg tablet PO SCH (21:37)
[2024-06-09] MEDS: benztropine 1mg tablet PO SCH (21:38)
[2024-06-09] MEDS: divalproex sod 250mg ER (24-hour) tablet PO SCH (21:38)
[2024-06-09] MEDS: busPIRone 15mg tablet PO SCH (21:38)
[2024-06-09] MEDS: traZODone 50mg tablet PO SCH (21:38)
[2024-06-10 07:00] VITALS: RESP 16; O2SAT 96
[2024-06-10 08:00] VITALS: BP 105/67; PULSE 124; RESP 16; TEMP 98.3; O2SAT 96
[2024-06-10] MEDS ORDERED: nicotine 14mg patch - 24hr TD SCH (08:00)
[2024-06-10] MEDS: busPIRone 5mg tablet PO SCH (08:12)
[2024-06-10] MEDS: lurasidone 20mg tablet PO SCH (08:12)
[2024-06-10] MEDS: ESCITALOPRAM 10 mg tablet 10 MG TABLET PO SCH (08:12)
[2024-06-10] MEDS: nicotine 21mg patch - 24 hr TD SCH (08:16)
[2024-06-10 12:46] LABS: CHOLESTEROL 130 MG/DL (0-200); HDL CHOLESTEROL 44 MG/DL (35-60); LDL CHOLESTEROL 73 MG/DL (50-100); TRIGLYCERIDES 91 MG/DL (20-135)
[2024-06-10 19:00] VITALS: RESP 14; O2SAT 97
[2024-06-10 20:00] VITALS: BP 117/67; PULSE 87; RESP 14; TEMP 97.7
[2024-06-11 07:00] VITALS: RESP 16; O2SAT 100
[2024-06-11 08:00] VITALS: BP 117/76; PULSE 86; RESP 16; TEMP 98.8; O2SAT 100
[2024-06-11] MEDS: busPIRone 5mg tablet PO SCH (13:14)
[2024-06-11 19:07] VITALS: RESP 16
[2024-06-11 19:36] VITALS: BP 111/64; PULSE 81; RESP 16; TEMP 97.7; O2SAT 97
[2024-06-11] MEDS: busPIRone 15mg tablet PO SCH (20:17)
[2024-06-12 07:12] LABS: CHOLESTEROL 123 MG/DL (0-200); HDL CHOLESTEROL 41 MG/DL (35-60); LDL CHOLESTEROL 71 MG/DL (50-100); TRIGLYCERIDES 53 MG/DL (20-135); VALPROATE 42 UG/ML (50-100)
[2024-06-12 07:30] VITALS: BP 120/68; PULSE 78; RESP 12; TEMP 98.7; O2SAT 100
[2024-06-12 07:45] VITALS: RESP 12; O2SAT 100
[2024-06-12] MEDS: ESCITALOPRAM 10 mg tablet 10 MG TABLET PO ONE (08:32)
[2024-06-12 18:43] VITALS: RESP 16
[2024-06-12 20:15] VITALS: BP 107/60; PULSE 82; RESP 16; TEMP 98.1; O2SAT 97
[2024-06-13 06:49] VITALS: RESP 12; O2SAT 100
[2024-06-13] MEDS: ESCITALOPRAM 10 mg tablet 10 MG TABLET PO SCH (07:57)
[2024-06-13 08:40] VITALS: BP 108/67; PULSE 71; RESP 16; TEMP 97.3; O2SAT 98
[2024-06-13] MEDS: lurasidone 20mg tablet PO SCH (17:16)
[2024-06-13 18:15] VITALS: RESP 18
[2024-06-13 19:42] VITALS: BP 106/54; PULSE 73; RESP 20; TEMP 97.9; O2SAT 98
[2024-06-14 08:02] VITALS: BP 102/56; PULSE 79; RESP 12; TEMP 99; O2SAT 99
[2024-06-14 20:00] VITALS: BP 107/56; PULSE 72; RESP 16; TEMP 98.4; O2SAT 97
[2024-06-15 07:00] VITALS: RESP 16; O2SAT 98
[2024-06-15 08:00] VITALS: BP 105/59; PULSE 75; RESP 18; TEMP 97.9; O2SAT 98
[2024-06-15 19:00] VITALS: RESP 16; O2SAT 98
[2024-06-15 20:00] VITALS: BP 124/74; PULSE 83; RESP 16; TEMP 97.8; O2SAT 98
[2024-06-16 06:29] VITALS: RESP 16; O2SAT 98
[2024-06-16 07:23] VITALS: BP 106/65; PULSE 77; RESP 16; TEMP 97.9; O2SAT 99
[2024-06-16] MEDS: acetaminophen 325mg tablet PO PRN (16:08)
[2024-06-16 19:00] VITALS: RESP 14; O2SAT 98
[2024-06-16 20:00] VITALS: BP 103/61; PULSE 67; RESP 14; TEMP 97.3; O2SAT 98
[2024-06-16] MEDS: traZODone 50mg tablet PO PRN (20:46)
[2024-06-17] MEDS: NICOTINE POLACRILEX 2 MG LOZENGE BC PRN (07:15)
[2024-06-17 07:30] VITALS: BP 96/54; PULSE 74; RESP 16; TEMP 98.6; O2SAT 96; O2SAT 98
[2024-06-17 19:00] VITALS: RESP 16; O2SAT 97
[2024-06-17 20:00] VITALS: BP 99/58; PULSE 61; RESP 16; TEMP 97.5; O2SAT 97
[2024-06-18 08:00] VITALS: BP 99/54; PULSE 61; RESP 14; RESP 16; TEMP 97.3; O2SAT 97; O2SAT 98
[2024-06-18] MEDS: lactose-reduced food (Ensure Enlive) - 237ml bottle PO SCH (17:58)
[2024-06-18 18:57] VITALS: RESP 18
[2024-06-18 19:35] VITALS: BP 101/54; PULSE 75; RESP 16; TEMP 97.4; O2SAT 99
[2024-06-19 07:45] VITALS: RESP 16; O2SAT 97
[2024-06-19 08:00] VITALS: BP 102/59; PULSE 64; RESP 16; TEMP 97.8; O2SAT 97
[2024-06-19 20:00] VITALS: BP 107/62; PULSE 80; RESP 16; RESP 18; TEMP 98; O2SAT 97
[2024-06-20 07:45] VITALS: BP 98/55; PULSE 65; RESP 15; TEMP 97.7; O2SAT 96
[2024-06-20 09:36] VITALS: RESP 15; O2SAT 96
[2024-06-20 19:38] VITALS: BP 119/67; PULSE 93; RESP 16; TEMP 97.6; O2SAT 96
[2024-06-20 19:50] VITALS: RESP 15; O2SAT 97
[2024-06-21 07:00] VITALS: RESP 15; O2SAT 99
[2024-06-21 08:00] VITALS: BP 109/69; PULSE 79; RESP 15; TEMP 98.1; O2SAT 99
[2024-06-21 19:47] VITALS: RESP 16; O2SAT 97
[2024-06-21 19:51] VITALS: BP 115/64; PULSE 88; RESP 16; TEMP 98.3; O2SAT 97
[2024-06-22 07:37] VITALS: BP 91/52; PULSE 84; RESP 16; TEMP 98.9; O2SAT 97
[2024-06-22 08:00] VITALS: RESP 16; O2SAT 97
[2024-06-22 19:00] VITALS: RESP 16; O2SAT 95
[2024-06-22 20:00] VITALS: BP 104/54; PULSE 83; RESP 16; TEMP 98.2; O2SAT 95
[2024-06-22] MEDS: busPIRone 15mg tablet PO SCH (20:45)
[2024-06-23 07:54] VITALS: BP 90/54; PULSE 69; RESP 12; TEMP 98.4; O2SAT 98
[2024-06-23 08:00] VITALS: RESP 12; O2SAT 98
[2024-06-23] MEDS: divalproex sod 125mg sprinkle cap PO SCH (20:08)
[2024-06-23 20:29] VITALS: BP 109/61; PULSE 71; RESP 16; TEMP 97.3; O2SAT 98
[2024-06-24 07:30] VITALS: BP 108/66; PULSE 75; RESP 16; TEMP 98.8; O2SAT 97
[2024-06-24 19:00] VITALS: RESP 16; O2SAT 97
[2024-06-24 20:00] VITALS: BP 101/51; PULSE 71; RESP 16; TEMP 97.6; O2SAT 97
[2024-06-25 07:30] VITALS: BP 93/52; PULSE 73; RESP 16; TEMP 97.5; O2SAT 96
[2024-06-25 19:00] VITALS: RESP 16; O2SAT 97
[2024-06-25 20:00] VITALS: BP 111/53; PULSE 66; RESP 16; TEMP 98; O2SAT 97
[2024-06-26 07:00] VITALS: RESP 14; O2SAT 95
[2024-06-26 08:00] VITALS: BP 103/57; PULSE 70; RESP 14; TEMP 97.9; O2SAT 95
[2024-06-26 19:00] VITALS: RESP 18; O2SAT 98
[2024-06-26 20:00] VITALS: BP 103/57; PULSE 67; RESP 18; TEMP 98.6; O2SAT 95
[2024-06-27 07:00] VITALS: RESP 16; O2SAT 96
[2024-06-27 08:00] VITALS: BP 100/57; PULSE 74; RESP 16; TEMP 97.2; O2SAT 96
[2024-06-27] MEDS: LORazepam 0.5 MG tablet PO PRN (18:41)
[2024-06-27 19:00] VITALS: RESP 16; O2SAT 95
[2024-06-27 19:59] VITALS: BP 111/72; PULSE 74; RESP 16; TEMP 97.6; O2SAT 95
[2024-06-28 07:00] VITALS: RESP 17; O2SAT 98
[2024-06-28 08:00] VITALS: BP 101/52; PULSE 72; RESP 17; TEMP 97.6; O2SAT 98
[2024-06-28 19:00] VITALS: RESP 18; O2SAT 98
[2024-06-28 20:00] VITALS: BP 102/53; PULSE 71; RESP 18; TEMP 98.2; O2SAT 98
[2024-06-29 07:22] VITALS: BP 104/61; PULSE 77; RESP 14; TEMP 98.9; O2SAT 96
[2024-06-29] MEDS: atomoxetine 40 MG capsule PO SCH (07:56)
[2024-06-29 08:00] VITALS: RESP 14; O2SAT 96
[2024-06-29 19:00] VITALS: RESP 16; O2SAT 99
[2024-06-29 20:00] VITALS: BP 118/75; PULSE 98; RESP 16; TEMP 97.4; O2SAT 99
[2024-06-30 07:12] VITALS: BP 109/61; PULSE 73; RESP 18; TEMP 98.2; O2SAT 97
[2024-06-30 07:53] VITALS: RESP 18; O2SAT 97
[2024-06-30 19:00] VITALS: RESP 18; O2SAT 97
[2024-06-30 19:33] VITALS: BP 123/86; PULSE 101; RESP 18; TEMP 97.2; O2SAT 97
[2024-06-30 20:00] VITALS: PULSE 80
[2024-06-30] MEDS: divalproex sod 125mg sprinkle cap PO SCH (20:48)
[2024-07-01 07:41] VITALS: BP 108/61; PULSE 74; RESP 16; TEMP 98.7; O2SAT 97
[2024-07-01 07:59] VITALS: RESP 16; O2SAT 97
[2024-07-01 19:00] VITALS: RESP 16; O2SAT 97
[2024-07-01 20:00] VITALS: BP 101/68; PULSE 97; RESP 16; TEMP 97.9; O2SAT 97
[2024-07-02 07:00] VITALS: RESP 16; O2SAT 96
[2024-07-02 07:30] VITALS: BP 97/57; PULSE 74; RESP 16; TEMP 97.3; O2SAT 98
[2024-07-02 19:00] VITALS: RESP 17; O2SAT 98
[2024-07-02 19:27] VITALS: BP 105/59; PULSE 66; RESP 17; TEMP 97.8; O2SAT 98
[2024-07-03 08:00] VITALS: RESP 12; O2SAT 99
[2024-07-03 08:30] VITALS: BP 106/61; PULSE 69; RESP 12; TEMP 97.8; O2SAT 99
[2024-07-03 09:04] LABS: CHOL/HDL RATIO 3.5 (0.00-4.99); CHOLESTEROL 179 MG/DL (0-200); HDL CHOLESTEROL 51 MG/DL (35-60); LDL CHOLESTEROL 105 MG/DL (50-100); TRIGLYCERIDES 127 MG/DL (20-135)
[2024-07-03 19:09] VITALS: BP 107/57; PULSE 77; RESP 20; TEMP 97.2; O2SAT 98
[2024-07-03 20:00] VITALS: RESP 20; O2SAT 98
[2024-07-04 08:00] VITALS: BP 107/53; PULSE 74; RESP 16; TEMP 97.2; O2SAT 98
[2024-07-04 19:00] VITALS: RESP 16; O2SAT 97
[2024-07-04 19:44] VITALS: BP 112/63; PULSE 66; RESP 16; TEMP 97.8; O2SAT 97
[2024-07-05 07:22] VITALS: BP 127/78; PULSE 65; RESP 18; TEMP 98.3; O2SAT 99
[2024-07-05 08:00] VITALS: RESP 18; O2SAT 99
[2024-07-05 19:00] VITALS: RESP 18; O2SAT 97
[2024-07-05 20:00] VITALS: BP 129/75; PULSE 98; RESP 18; TEMP 97.4; O2SAT 97
[2024-07-06 08:00] VITALS: BP 109/60; PULSE 68; RESP 16; TEMP 98.2; O2SAT 98
[2024-07-06 19:00] VITALS: RESP 16; O2SAT 95
[2024-07-06 20:00] VITALS: BP 111/64; PULSE 79; RESP 18; TEMP 97.8; O2SAT 99
[2024-07-07 07:32] VITALS: BP 101/60; PULSE 62; RESP 16; TEMP 98.8; O2SAT 99
[2024-07-07 08:00] VITALS: RESP 16; O2SAT 94
[2024-07-07 19:35] VITALS: BP 104/62; PULSE 70; RESP 15; TEMP 98.7; O2SAT 97
[2024-07-07 19:59] VITALS: RESP 15; O2SAT 97
[2024-07-08 07:00] VITALS: RESP 14; O2SAT 96
[2024-07-08 08:00] VITALS: BP 97/50; PULSE 65; RESP 14; TEMP 96.8; O2SAT 96
[2024-07-08 19:00] VITALS: RESP 16; O2SAT 97
[2024-07-08 20:00] VITALS: BP 99/61; PULSE 78; RESP 14; TEMP 98.6; O2SAT 97
[2024-07-09 07:30] VITALS: BP 102/56; PULSE 64; RESP 14; TEMP 97; O2SAT 100
[2024-07-09 07:45] VITALS: RESP 14; O2SAT 100
[2024-07-09 19:00] VITALS: RESP 17; O2SAT 100
[2024-07-09 20:00] VITALS: BP 102/78; PULSE 78; RESP 17; TEMP 97.8; O2SAT 100
[2024-07-10 08:00] VITALS: BP 98/70; PULSE 84; RESP 12; TEMP 98; O2SAT 97
[2024-07-10 19:30] VITALS: RESP 16; O2SAT 95
[2024-07-10 20:00] VITALS: BP 135/85; PULSE 101; RESP 16; TEMP 97.1; O2SAT 95
[2024-07-11 07:30] VITALS: BP 113/68; PULSE 74; RESP 16; TEMP 99; O2SAT 97
[2024-07-11 07:45] VITALS: RESP 16; O2SAT 97
[2024-07-11 19:30] VITALS: RESP 17; O2SAT 97
[2024-07-11 20:00] VITALS: BP 121/72; PULSE 85; RESP 17; TEMP 97; O2SAT 97
[2024-07-12 07:00] VITALS: RESP 15; O2SAT 97
[2024-07-12 08:00] VITALS: BP 109/70; PULSE 80; RESP 15; TEMP 98.8; O2SAT 97
[2024-07-12 19:00] VITALS: RESP 16; O2SAT 96
[2024-07-12 20:00] VITALS: BP 104/65; PULSE 71; RESP 16; TEMP 97.2; O2SAT 96
[2024-07-13 07:00] VITALS: RESP 14; O2SAT 97
[2024-07-13 08:00] VITALS: BP 106/76; PULSE 86; RESP 14; TEMP 98.7; O2SAT 97
[2024-07-13 19:00] VITALS: RESP 16; O2SAT 98
[2024-07-13 20:00] VITALS: BP 117/72; PULSE 80; RESP 16; TEMP 97.9; O2SAT 98
[2024-07-14 07:00] VITALS: RESP 16; O2SAT 99
[2024-07-14 08:00] VITALS: BP 112/72; PULSE 84; RESP 16; TEMP 97.6; O2SAT 99
[2024-07-14 19:00] VITALS: RESP 18; O2SAT 98
[2024-07-14 20:00] VITALS: BP 130/81; PULSE 98; RESP 18; TEMP 97.1; O2SAT 98
[2024-07-15 07:00] VITALS: RESP 17; O2SAT 98
[2024-07-15 08:00] VITALS: BP 130/51; PULSE 87; RESP 17; TEMP 98.3; O2SAT 98
[2024-07-15 19:00] VITALS: RESP 17; O2SAT 94
[2024-07-15 20:00] VITALS: BP 129/83; PULSE 79; RESP 17; TEMP 97.7; O2SAT 94
[2024-07-16 08:00] VITALS: BP 105/68; PULSE 89; RESP 16; TEMP 97.6; O2SAT 97
[2024-07-16 19:00] VITALS: RESP 14; O2SAT 96
[2024-07-16 20:00] VITALS: BP 113/62; PULSE 89; RESP 14; TEMP 97.7; O2SAT 98
[2024-07-17 07:28] VITALS: BP 105/63; PULSE 92; RESP 16; TEMP 97.5; O2SAT 100
[2024-07-17 08:00] VITALS: RESP 16; O2SAT 100
[2024-07-17 19:00] VITALS: RESP 16; O2SAT 97
[2024-07-17 19:24] VITALS: BP 118/73; PULSE 100; RESP 17; TEMP 98.5; O2SAT 97
[2024-07-18 08:00] VITALS: BP_SYST 102; BP_SYST 121; BP_DIAS 55; BP_DIAS 90; PULSE 101; RESP 16; TEMP 97.6; O2SAT 98
[2024-07-18 19:00] VITALS: RESP 16; O2SAT 98
[2024-07-18 20:00] VITALS: BP 131/76; PULSE 99; RESP 16; TEMP 97.9; O2SAT 98
[2024-07-19 07:00] VITALS: BP 97/65; PULSE 65; RESP 16; TEMP 97.4; O2SAT 97
[2024-07-19 19:00] VITALS: BP 112/58; PULSE 74; RESP 16; TEMP 97.1; O2SAT 100
[2024-07-20 07:00] VITALS: BP 115/66; PULSE 85; RESP 18; TEMP 97.8; O2SAT 97
[2024-07-20 19:00] VITALS: RESP 16; O2SAT 96
[2024-07-20 20:26] VITALS: BP 111/67; PULSE 72; RESP 16; TEMP 98.6; O2SAT 96
[2024-07-21 07:30] VITALS: BP 97/61; PULSE 87; RESP 15; TEMP 97.7; O2SAT 97
[2024-07-21 08:00] VITALS: RESP 15; O2SAT 97
[2024-07-21 19:00] VITALS: RESP 16; O2SAT 96
[2024-07-21 19:49] VITALS: BP 113/71; PULSE 88; RESP 16; TEMP 97.9; O2SAT 96
[2024-07-22 08:00] VITALS: BP 91/56; PULSE 78; RESP 16; TEMP 97.5; O2SAT 96
[2024-07-22 19:50] VITALS: RESP 13; O2SAT 95
[2024-07-22 20:00] VITALS: BP 102/57; PULSE 72; RESP 13; TEMP 97.7; O2SAT 95
[2024-07-23 07:45] VITALS: BP 105/56; PULSE 72; RESP 13; TEMP 97; O2SAT 97
[2024-07-23 08:00] VITALS: RESP 13; O2SAT 98
[2024-07-23 19:00] VITALS: RESP 16; O2SAT 94
[2024-07-23 20:00] VITALS: BP 101/55; PULSE 73; RESP 12; TEMP 98.5; O2SAT 94
[2024-07-24 07:30] VITALS: BP 115/69; PULSE 62; RESP 16; TEMP 97.5; O2SAT 99
[2024-07-24 18:57] VITALS: BP 111/64; PULSE 73; RESP 15; TEMP 98.7; O2SAT 98
[2024-07-24 19:04] VITALS: BP 111/64; PULSE 73; RESP 15; TEMP 98.7; O2SAT 98
[2024-07-25 07:30] VITALS: BP 98/59; PULSE 73; RESP 14; TEMP 98.1; O2SAT 96
[2024-07-25 19:00] VITALS: RESP 20; O2SAT 100
[2024-07-25 19:52] VITALS: BP 116/65; PULSE 91; RESP 20; TEMP 97.8; O2SAT 100
[2024-07-26 07:00] VITALS: BP 102/55; PULSE 67; RESP 17; TEMP 97; O2SAT 94
[2024-07-26 09:31] VITALS: RESP 67; O2SAT 94
[2024-07-26 19:00] VITALS: RESP 16; O2SAT 96
[2024-07-26 20:00] VITALS: BP 112/76; PULSE 88; RESP 16; TEMP 98.4; O2SAT 96
[2024-07-27 07:04] VITALS: BP 106/61; PULSE 68; RESP 16; TEMP 98.5; O2SAT 97
[2024-07-27 08:18] VITALS: RESP 16; O2SAT 97
[2024-07-27 20:00] VITALS: BP 122/82; PULSE 102; RESP 16; TEMP 97.7; O2SAT 98
[2024-07-28 07:30] VITALS: BP 102/54; PULSE 72; RESP 16; TEMP 98; O2SAT 97
== END 2024-07-28 10:55 | DRG 885 ==
LOC: ER 11:04 → UNDOADMIN 16:00 → ADULT MH 16:00
PROVIDERS: ADMIT Psychiatry & Neurology Psychiatry; ATTEND Psychiatry & Neurology Psychiatry
PROC: GZHZZZZ Group Psychotherapy (ICD-10-PCS; principal; 2024-06-10)
PROC: GZ51ZZZ Individual Psychotherapy, Behavioral (ICD-10-PCS; 2024-06-10)
DX: F25.0 Schizoaffective disorder, bipolar type (principal); F15.10 Other stimulant abuse, uncomplicated; F31.9 Bipolar disorder, unspecified; Z20.822 Contact with and (suspected) exposure to COVID-19; F17.210 Nicotine dependence, cigarettes, uncomplicated; G47.00 Insomnia, unspecified; Z79.899 Other long term (current) drug therapy; Z88.8 Allergy status to other drugs, medicaments and biological substances
CPT/HCPCS: 36415; 80048; 80061; 80164; 80305; 80320; 81001; 84443; 85025; 87081; 87811; 99285